=== PATIENT | female | born 1965 | race Caucasian/White ===

== ENCOUNTER 2018-01-23 19:32 | Observation (INO) ==
[2018-01-23] MEDS ORDERED: Ondansetron 4 MG/2 ML VIAL IVP ONE (20:11)
[2018-01-23] MEDS ORDERED: 0.9 % Sodium Chloride 1,000 ML IVC ONE (20:13)
[2018-01-23] MEDS ORDERED: Hydrocortisone Sodium Succ 100 MG/2 ML VIAL IVP ONE (20:13)
--- NOTE | 2018-01-23 20:17 | Emergency Department Note ---
Disposition Clinical Impression: Vomiting and diarrhea, Elevated LFTs, History of [place]'s disease Disposition: Admitted As Inpatient Condition: Good General Adult HPI - General Chief complaint: ED Chest Pain Stated complaint: uc sent here for poss. adrenal crisis Time Seen by Provider: 01/23/18 19:56 Source: patient Limitations: no limitations Nursing Notes Reviewed: Yes Vital Signs Reviewed: Yes - History of Present Illness HPI Narrative: This is a 52 year-old female with history of Brain's disease, hypopituitarism , HLD, and IBS who presents with gastroenteritis-like symptoms for the past 2 days. She reports 5-6 episodes of nonbloody, nonbilious emesis yesterday, none today. She also reports numerous episodes of watery diarrhea. She reports a fever to 102 yesterday and dull left-sided chest pain today. She denies any cough, shortness of breath, abdominal pain, urinary symptoms, leg pain or swelling. No sick contacts. Pt Subjective Complaint: Vomiting and Diarrhea Onset (ago): day(s) (2) Location: chest Radiation: extremity Pain Scale: 8 Quality: dull Consistency: constant Improves with: nothing Worsens with: nothing Associated symptoms: Reports: confusion, chest pain, fever/chills (yesterday), loss of appetite, malaise, nausea/vomiting, weakness (generalized). Denies: cough, headaches, shortness of breath, syncope - Related Data Home Medications Medication Instructions Recorded Confirmed Aspirin [Adult Low Dose Aspirin EC] 81 mg PO DAILY 11/18/15 01/23/18 Cyanocobalamin (Vitamin B-12) 1,000 mcg PO DAILY 11/18/15 01/23/18 [Vitamin B12] Dicyclomine 20 mg PO BID 11/18/15 01/23/18 Diltiazem HCl [Diltiazem ER] 120 mg PO BID 11/18/15 01/23/18 Hydrocortisone Sod Succ/Pf 100 mg IJ AD 11/18/15 01/23/18 [Solu-Cortef 100 mg Vial] Hydrocortisone [Cortef] 20 mg PO QAM 11/18/15 01/23/18 Nitroglycerin [Nitrostat] 0.4 mg SL Q5M PRN 02/22/16 01/23/18 Linaclotide [Linzess] 145 mcg PO DAILY PRN 07/06/16 01/23/18 Pantoprazole Sodium [Protonix] 40 mg PO DAILY 07/06/16 01/23/18 Estradiol [Estrace] 1 mg PO DAILY 05/23/17 01/23/18 Levothyroxine [Synthroid] 125 mcg PO 0605/23/17 01/23/18 Prazosin [Minipress] 1 mg PO HS 05/23/17 01/23/18 Progesterone,Micronized 200 mg PO QPM 05/23/17 01/23/18 [Progesterone] Quetiapine Fumarate [Seroquel] 250 mg PO HS 05/23/17 01/23/18 Somatropin [Genotropin] 0.4 mg SQ QPM 05/23/17 01/23/18 Ergocalciferol (VITAMIN D2) 50,000 unit PO QWEEK 01/23/18 01/23/18 [Vitamin D2] Hydrocortisone [Cortef] 10 mg PO QPM 01/23/18 01/23/18 Venlafaxine XR (24 HR) [Effexor XR] 75 mg PO DAILY 01/23/18 01/23/18 lamoTRIgine [Lamictal] 150 mg PO QAM 01/23/18 01/23/18 Previous Rx's Medication Instructions Recorded Benzonatate [Tessalon] 200 mg PO TID PRN #30 capsule 12/16/17 Allergies Allergy/AdvReac Type Severity Reaction Status Date / Time No Known Allergies Allergy Verified 01/23/18 18:48 All systems ED: reviewed and negative except as stated. Constitutional: Reports: fever, weakness (generalized) Cardiovascular: Reports: chest pain. Denies: palpitations, syncope Respiratory: Denies: cough, dyspnea Gastrointestinal: Reports: as per HPI, nausea, vomiting, diarrhea. Denies: abdominal pain, hematemesis, melena, hematochezia Genitourinary: Reports: as per HPI. 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 Absent: scleral icterus - ENT ENT exam: normal exam - Neck Neck exam: Present: normal inspection - Cardiovascular Cardiovascular exam: Present: regular rate, normal rhythm, normal heart sounds - Abdominal Exam Abdominal exam: Present: soft, Non-Tender, normal bowel sounds. Absent: distention, guarding, rebound, rigidity - Extremities Exam Extremities exam: Present: normal inspection. Absent: calf tenderness - Neurological Exam Neurological exam: Present: alert, oriented X3, CN II-XII intact. Absent: motor sensory deficit - Psychiatric Psychiatric exam: Present: normal affect, normal mood - Skin Skin exam: Present: warm, dry, intact Course Vital Signs Temperature 98.7 F 01/23/18 19:39 Pulse Rate 83 01/23/18 19:39 Respiratory Rate 18 01/23/18 19:39 Blood Pressure 133/85 01/23/18 19:39 O2 Sat by Pulse Oximetry 98 01/23/18 19:39 Temperature 99.0 F 01/23/18 23:50 Pulse Rate 86 01/23/18 23:50 Respiratory Rate 14 01/23/18 23:50 Blood Pressure 122/75 01/23/18 23:50 O2 Sat by Pulse Oximetry 97 01/23/18 23:50 Oxygen Delivery Oxygen Delivery Room Air Medical Decision Making - Lab Data Lab results reviewed: Yes I reviewed the patient's lab results. Result diagrams: 01/23/18 20:21 01/23/18 20:11 Lab Results 01/23/18 01/23/18 01/23/18 Range/Units 20:11 20:11 20:21 WBC 2.5 L (4.3-11.1) K/mcL RBC 4.56 (3.82-4.97) M/mcL Hgb 13.5 (11.5-15.4) g/dL Hct 40.1 (35.3-44.9) % MCV 87.9 (83.0-100.0) fL MCH 29.6 (28.0-33.3) pg MCHC 33.7 (31.6-35.5) g/dL RDW 12.8 (11.5-14.5) % Plt Count 174 (140-400) K/mcL MPV 10.0 (9.4-12.4) fL Immature Gran % 0.0 (0-4) % Seg Neutrophils % 54.8 % Lymphocytes % 24.4 % Monocytes % 20.4 % Eosinophils % 0.4 % Basophils % 0.0 % Neutrophils # 1.4 L (1.6-8.9) K/mcL Lymphocytes # 0.6 (0.6-4.6) K/mcL Monocytes # 0.5 (0.0-1.3) K/mcL Eosinophils # 0.0 (0.0-0.6) K/mcL Basophils # 0.0 (0.0-0.2) K/mcL Toxic Granulation Present A (Not Present) Platelet Estimate Normal (Normal) Large Platelets Present A (Not Present) PT 11.3 (9.4-12.1) Seconds INR 1.1 APTT 36.0 (26.0-36.0) Seconds Sodium 138 (136-145) mEq/L Potassium 3.6 (3.5-5.1) mEq/L Chloride 103 (98-107) mEq/L Carbon Dioxide 28 (23-29) mEq/L BUN 10 (6-20) mg/dL Creatinine 0.87 (0.60-1.20) mg/dL Est GFR ( Amer) > 60 (> 60) Est GFR (Non-Af Amer) > 60 (> 60) BUN/Creatinine Ratio 11 (6-26) Glucose 99 (70-105) mg/dL Calculated Osmolality 285 (280-300) Calcium 9.3 (8.6-10.3) mg/dL Total Bilirubin 0.6 (0.3-1.0) mg/dL Direct Bilirubin 0.2 (0.0-0.2) mg/dL Indirect Bilirubin 0.4 (0.0-1.2) mg/dL AST 99 H (13-39) Units/L ALT 119 H (7-52) Units/L Alkaline Phosphatase 174 H (34-104) Units/L Troponin I < 0.03 (< 0.04) ng/mL Serum Total Protein 6.7 (6.4-8.9) g/dL Albumin 4.1 (3.5-5.7) g/dL Globulin 2.6 (2.4-3.5) g/dL Albumin/Globulin Ratio 1.6 (1.1-2.2) Amylase 35 (29-103) Units/L Lipase 21 (11-82) Units/L TSH 0.011 L (0.340-5.600) mcIU/mL Free T4 0.96 (0.70-2.00) ng/dl Urine Color (Yellow) Urine Clarity (Clear) Urine pH (5.0-8.0) pH Units Ur Specific [place] (1.010-1.025) Urine Protein (Neg-Trace) mg/dL Urine Glucose (UA) (Normal) mg/dL Urine Ketones (Negative) mg/dL Urine Blood (Negative) Urine Nitrite (Negative) Urine Bilirubin (Negative) Urine Urobilinogen (Normal) mg/dL Ur Leukocyte Esterase (Negative) Urine Microscopic RBC (0-3) per hpf Urine Microscopic WBC (0-3) per hpf Ur Squamous Epith Cells (None-Few) per lpf Urine Bacteria (None-Few) per hpf Hyaline Casts (None-Few) per lpf Ur Culture Indicated? (NO) 01/23/18 Range/Units 20:49 WBC (4.3-11.1) K/mcL RBC (3.82-4.97) M/mcL Hgb (11.5-15.4) g/dL Hct (35.3-44.9) % MCV (83.0-100.0) fL MCH (28.0-33.3) pg MCHC (31.6-35.5) g/dL RDW (11.5-14.5) % Plt Count (140-400) K/mcL MPV (9.4-12.4) fL Immature Gran % (0-4) % Seg Neutrophils % % Lymphocytes % % Monocytes % % Eosinophils % % Basophils % % Neutrophils # (1.6-8.9) K/mcL Lymphocytes # (0.6-4.6) K/mcL Monocytes # (0.0-1.3) K/mcL Eosinophils # (0.0-0.6) K/mcL Basophils # (0.0-0.2) K/mcL Toxic Granulation (Not Present) Platelet Estimate (Normal) Large Platelets (Not Present) PT (9.4-12.1) Seconds INR APTT (26.0-36.0) Seconds Sodium (136-145) mEq/L Potassium (3.5-5.1) mEq/L Chloride (98-107) mEq/L Carbon Dioxide (23-29) mEq/L BUN (6-20) mg/dL Creatinine (0.60-1.20) mg/dL Est GFR ( Amer) (> 60) Est GFR (Non-Af Amer) (> 60) BUN/Creatinine Ratio (6-26) Glucose (70-105) mg/dL Calculated Osmolality (280-300) Calcium (8.6-10.3) mg/dL Total Bilirubin (0.3-1.0) mg/dL Direct Bilirubin (0.0-0.2) mg/dL Indirect Bilirubin (0.0-1.2) mg/dL AST (13-39) Units/L ALT (7-52) Units/L Alkaline Phosphatase (34-104) Units/L Troponin I (< 0.04) ng/mL Serum Total Protein (6.4-8.9) g/dL Albumin (3.5-5.7) g/dL Globulin (2.4-3.5) g/dL Albumin/Globulin Ratio (1.1-2.2) Amylase (29-103) Units/L Lipase (11-82) Units/L TSH (0.340-5.600) mcIU/mL Free T4 (0.70-2.00) ng/dl Urine Color Yellow (Yellow) Urine Clarity Cloudy A (Clear) Urine pH 6.0 (5.0-8.0) pH Units Ur Specific [place] 1.024 (1.010-1.025) Urine Protein Negative (Neg-Trace) mg/dL Urine Glucose (UA) Normal (Normal) mg/dL Urine Ketones Negative (Negative) mg/dL Urine Blood Moderate H (Negative) Urine Nitrite Negative (Negative) Urine Bilirubin Negative (Negative) Urine Urobilinogen Normal (Normal) mg/dL Ur Leukocyte Esterase Negative (Negative) Urine Microscopic RBC 5-15 H (0-3) per hpf Urine Microscopic WBC 3-5 H (0-3) per hpf Ur Squamous Epith Cells Many H (None-Few) per lpf Urine Bacteria None Seen (None-Few) per hpf Hyaline Casts None Seen (None-Few) per lpf Ur Culture Indicated? NO (NO) - Radiology Data Radiology results reviewed: Yes I reviewed the patient's radiology results. XR/XR chest 2V IMPRESSION: No acute process. - EKG Data EKG #1 EKG attestation: Yes I reviewed and interpreted this EKG. EKG shows normal: sinus rhythm, axis, intervals, QRS complexes, ST-T waves Interpretation: normal EKG
[2018-01-23 20:28] LABS: Eosinophils % 0.4 %; Hematocrit 40.1 % (35.3-44.9); Hemoglobin 13.5 g/dL (11.5-15.4); Lymphocytes # 0.6 K/mcL (0.6-4.6); Lymphocytes % 24.4 %; Mean Corpuscular HGB Conc 33.7 g/dL (31.6-35.5); Mean Corpuscular Hemoglobin 29.6 pg (28.0-33.3); Mean Corpuscular Volume 87.9 fL (83.0-100.0); Monocytes # 0.5 K/mcL (0.0-1.3); Monocytes % 20.4 %; Neutrophils # 1.4 K/mcL (1.6-8.9); Platelet Count 174 K/mcL (140-400); Red Blood Count 4.56 M/mcL (3.82-4.97); Red Cell Distribution Width 12.8 % (11.5-14.5); Segmented Neutrophils % 54.8 %
[2018-01-23 20:37] LABS: INR 1.1; Prothrombin Time 11.3 Seconds (9.4-12.1)
[2018-01-23 20:40] LABS: Alanine Aminotransferase 119 Units/L (7-52); Albumin 4.1 g/dL (3.5-5.7); Albumin/Globulin Ratio 1.6 (1.1-2.2); Alkaline Phosphatase 174 Units/L (34-104); Amylase 35 Units/L (29-103); Aspartate Amino Transferase 99 Units/L (13-39); BUN/Creatinine Ratio 11 (6-26); Bilirubin,Direct 0.2 mg/dL (0.0-0.2); Bilirubin,Indirect 0.4 mg/dL (0.0-1.2); Bilirubin,Total 0.6 mg/dL (0.3-1.0); Blood Urea Nitrogen 10 mg/dL (6-20); Calcium 9.3 mg/dL (8.6-10.3); Carbon Dioxide 28 mEq/L (23-29); Chloride 103 mEq/L (98-107); Globulin 2.6 g/dL (2.4-3.5); Glucose 99 mg/dL (70-105); Lipase 21 Units/L (11-82); Osmolality,Calculated 285 (280-300); Potassium 3.6 mEq/L (3.5-5.1); Sodium 138 mEq/L (136-145); Total Protein 6.7 g/dL (6.4-8.9); Troponin I < 0.03 ng/mL (< 0.04); eGFR For African Americans > 60 (> 60); eGFR For Non-African Americans > 60 (> 60)
[2018-01-23 20:43] LABS: Large Platelets Present (Not Present); Platelet Estimate Normal (Normal)
[2018-01-23 20:44] LABS: Toxic Granulation Present (Not Present)
[2018-01-23 20:54] LABS: Thyroid Stimulating Hormone 0.011 mcIU/mL (0.340-5.600)
[2018-01-23 21:00] LABS: Bilirubin,Urine Negative (Negative); Blood,Urine Moderate (Negative); Clarity,Urine Cloudy (Clear); Color,Urine Yellow (Yellow); Glucose,Urine (UA) Normal (Normal); Ketones,Urine Negative (Negative); Leukocyte Esterase,Urine Negative (Negative); Nitrite,Urine Negative (Negative); Protein,Urine Negative (Neg-Trace); Specific Gravity,Urine 1.024 (1.010-1.025); Urobilinogen,Urine Normal (Normal)
[2018-01-23 21:01] LABS: Bacteria,Urine None Seen per hpf (None-Few); Hyaline Casts,Urine None Seen per lpf (None-Few); Squamous Epithelial Cell,Urine Many per lpf (None-Few)
[2018-01-23] MEDS ORDERED: Naloxone 0.4 MG/ML INJ IVP PRN (22:41)
[2018-01-23] MEDS ORDERED: Nitroglycerin 0.4 MG TAB.SUBL SL PRN (22:45)
[2018-01-23] MEDS ORDERED: LINACLOTIDE 145 MCG PO PRN (22:45)
[2018-01-23] MEDS ORDERED: Benzonatate 100 MG CAPSULE PO PRN (22:45)
--- NOTE | 2018-01-23 23:08 | Internal Med History&Physical ---
Date of Encounter: 01/23/18 Time of Encounter: 22:00 Internal Medicine - H&P: HPI Chief complaint: Nausea, vomiting, and diarrhea Admitted From: Home Plans for Post Hospital Care: Home History of present illness: Ms. Adler is a 52 year old female present to ER for nausea, vomiting, and diarrhea. Past medical history is significant for Brain disease on chronic steroid use, PTSD, IBD. Patient said started from yesterday she has nausea and vomiting. Patient totally has 6-7 vomiting is yesterday. The vomiting are stomach content, no blood in it. Patient also has spike fever to 102 yesterday. Patient denies runny nose, sore throat, ill contact, or unclean food taking. From today, patient still nausea but no vomiting or fever, patient has diarrhea today for about 6 times, watery, greenish color. Patient also complaining left upper quadrant abdominal pain today, the pain is a sharp, constant, radiates to the back. Patient denies shortness of breath or chest pain. Patient has slightly confused and she worry about her adrenal function. Patient was treated with IV fluid in ER and admitted for further management. Past Med Surg Social Fam HX - Past Medical History Medical history: other Additional medical history: brain's disease Psychiatric history: depression, PTSD - Past Surgical History Surgical History: hysterectomy, orthopedic, other, other Additional surgical history: 8 back surgeries. three elbow surgeries. rt carpal tunnel. two rt shoulder. total right shoulder reverse. battery replacment for stim - Social History Smoking Status: Never smoker Smokeless Tobacco Status: No Alcohol use: none Drug use: none - Family History Mother Living Status: Hx Family Cardiac Disorders: Yes Hx Family Respiratory Disorders: No Hx Family Cancer: Yes (lung) Hx Family GI Disorders: No Hx Family Endocrine Disorder: No Hx Family Neuromuscular Disorders: No Hx Family Neurologic Disorders: No Hx Family HEENT Disorders: No Hx Family Autoimmune Disorders: No Internal Medicine - H&P: Meds Aspirin [Adult Low Dose Aspirin EC] 81 mg PO DAILY 11/18/15 [History] Cyanocobalamin (Vitamin B-12) [Vitamin B12] 1,000 mcg PO DAILY 11/18/15 [History ] Dicyclomine 20 mg PO BID 11/18/15 [History] Diltiazem HCl [Diltiazem ER] 120 mg PO BID 04/14/16 [History] Hydrocortisone Sod Succ/Pf [Solu-Cortef 100 mg Vial] 100 mg IJ AD 11/18/15 [ History] Hydrocortisone [Cortef] 20 mg PO QAM 11/18/15 [History] Nitroglycerin [Nitrostat] 0.4 mg SL Q5M PRN 02/22/16 [History] Linaclotide [Linzess] 145 mcg PO DAILY PRN 07/06/16 [History] Pantoprazole Sodium [Protonix] 40 mg PO DAILY 07/06/16 [History] Estradiol [Estrace] 1 mg PO DAILY 05/23/17 [History] Levothyroxine [Synthroid] 125 mcg PO 0630 05/23/17 [History] Prazosin [Minipress] 1 mg PO HS 05/23/17 [History] Progesterone,Micronized [Progesterone] 200 mg PO QPM 05/23/17 [History] Quetiapine Fumarate [Seroquel] 250 mg PO HS 05/23/17 [History] Somatropin [Genotropin] 0.4 mg SQ QPM 05/23/17 [History] Benzonatate [Tessalon] 200 mg PO TID PRN #30 capsule 12/16/17 [Rx] Ergocalciferol (VITAMIN D2) [Vitamin D2] 50,000 unit PO QWEEK 01/23/18 [History] Hydrocortisone [Cortef] 10 mg PO QPM 01/23/18 [History] Venlafaxine XR (24 HR) [Effexor XR] 75 mg PO DAILY 01/23/18 [History] lamoTRIgine [Lamictal] 150 mg PO QAM 01/23/18 [History] 3 Allergy/AdvReac Type Severity Reaction Status Date / Time No Known Allergies Allergy Verified 01/23/18 18:48 All Systems PM: A 10-system review of systems was performed and is negative for pertinent findings except as documented above in the HPI. - Constitutional Vitals: Temp Pulse Resp BP Pulse Ox 98.7 F 74 16 127/82 94 01/23/18 19:53 01/23/18 21:49 01/23/18 22:35 01/23/18 22:35 01/23/18 21:49 General appearance: Present: A&O X 3, no acute distress, answers questions appropriately - Head Head exam: Present: atraumatic, normocephalic - Eye Eye exam: Present: PERRL, conjuntiva pink, sclera anicteric Pupils: Present: PERRL - Neck Neck exam general surgery: Present: supple, trachea midline. Absent: lymphadenopathy - Respiratory Respiratory exam: Present: CTAB. Absent: accessory muscle use, rales, rhonchi, wheezes - Cardiovascular Cardiovascular exam: Present: RRR, +S1, +S2. Absent: diastolic murmur, gallop, rubs, systolic murmur - GI/Abdominal GI/Abdominal exam: Present: hyperactive bowel sounds, normal bowel sounds, soft , tenderness (Left upper quadrant tenderness without guarding or rebound), no peritoneal signs. Absent: distended - Extremities Exam Extremities exam: Present: warm, radial pulses palpable and symmetrical. Absent : calf tenderness, cyanotic, pedal edema - Neurological Exam Neurological exam: Present: CN II-XII intact, oriented X3, no focal deficits. Absent: pronater drift, facial droop, speech deficit - Skin Skin exam: Present: dry, intact Internal Med - H&P Results - Labs CBC & Chem 7: 01/23/18 20:21 01/23/18 20:11 - Assessment and plan (1) Hypothyroidism Current Visit: No Status: Chronic Assessment and plan: Continue home medications Synthroid. Qualifiers: Hypothyroidism type: unspecified Qualified Code(s): E03.9 - Hypothyroidism , unspecified (2) DVT prophylaxis Current Visit: No Status: Acute Assessment and plan: Heparin subcutaneously. (3) Seizure disorder Current Visit: No Status: Acute Assessment and plan: Continue home medications (4) Abdominal pain Current Visit: No Status: Acute Assessment and plan: Left upper quadrant pain. Etiology is undetermined. Abdominal exam is generally benign. Will check CT abdomen without contrast. We will repeat lipase in a.m. Qualifiers: Abdominal location: periumbilical Qualified Code(s): R10.33 - Periumbilical pain (5) Nausea and vomiting Current Visit: No Status: Acute Assessment and plan: Etiology is undetermined. Probably due to acute gastroenteritis. Place patient on clear liquid diet and IV fluid. Closely monitor electrolytes level and correct her dehydration. Qualifiers: Vomiting type: unspecified Vomiting Intractability: non-intractable Qualified Code(s): R11.2 - Nausea with vomiting, unspecified (6) Depression Current Visit: No Status: Chronic Assessment and plan: Continue home medications Qualifiers: Depression Type: unspecified Qualified Code(s): F32.9 - Major depressive disorder, single episode, unspecified (7) Adrenal insufficiency Current Visit: No Status: Chronic Assessment and plan: Patient has history of Ke disease on by mouth steroids at home. Will place patient on stress dose hydrocortisone IV for the acute stress. (8) Acute gastroenteritis Current Visit: No Status: Acute Assessment and plan: Patient has nausea vomiting and diarrhea. Etiology is undetermined. Will order CT abdominal. Place patient on clear liquid diet and IV fluid. Symptomatic treatment for nausea. Check GI stool panel. (9) Elevated LFTs Current Visit: Yes Status: Acute Assessment and plan: Mild elevated ALT and AST level. Patient denies history of hepatitis. Probably due to acute gastroenteritis and severe nausea vomiting. Will closely follow-up liver function and avoid hepatotoxic medications. - Time Spent With Patient Total time spent is greater than 50% in coordination of care (as documented) at patient's floor/unit and/or counseling patient: 40 minutes Greater than 35 minutes
[2018-01-23] MEDS ORDERED: Ondansetron 4 MG/2 ML VIAL IVP PRN (23:20)
[2018-01-24] MEDS: Hydrocortisone Sodium Succ 100 MG/2 ML VIAL IVP SCH ×2 (00:39→08:29)
[2018-01-24] MEDS: 0.9 % Sodium Chloride 1,000 ML IVC SCH ×2 (01:45→10:40)
[2018-01-24 02:06] LABS: Hematocrit 35.2 % (35.3-44.9); Immature Granulocytes % 0.4 % (0-4); Lymphocytes # 0.4 K/mcL (0.6-4.6); Lymphocytes % 15.8 %; Mean Corpuscular HGB Conc 33.8 g/dL (31.6-35.5); Mean Corpuscular Hemoglobin 29.7 pg (28.0-33.3); Mean Corpuscular Volume 87.8 fL (83.0-100.0); Monocytes # 0.3 K/mcL (0.0-1.3); Monocytes % 9.6 %; Neutrophils # 1.9 K/mcL (1.6-8.9); Platelet Count 147 K/mcL (140-400); Red Blood Count 4.01 M/mcL (3.82-4.97); Red Cell Distribution Width 12.8 % (11.5-14.5); Segmented Neutrophils % 74.2 %
[2018-01-24 02:07] LABS: Hemoglobin 11.9 g/dL (11.5-15.4)
[2018-01-24 02:27] LABS: Alanine Aminotransferase 90 Units/L (7-52); Albumin 3.6 g/dL (3.5-5.7); Albumin/Globulin Ratio 1.6 (1.1-2.2); Alkaline Phosphatase 145 Units/L (34-104); Aspartate Amino Transferase 62 Units/L (13-39); BUN/Creatinine Ratio 12 (6-26); Bilirubin,Total 0.4 mg/dL (0.3-1.0); Blood Urea Nitrogen 9 mg/dL (6-20); Calcium 8.5 mg/dL (8.6-10.3); Carbon Dioxide 25 mEq/L (23-29); Chloride 108 mEq/L (98-107); Chol/HDL Ratio 2.5 (0-4.9); Cholesterol 138 mg/dL (< 200); Globulin 2.3 g/dL (2.4-3.5); Glucose 121 mg/dL (70-105); HDL Cholesterol 56 mg/dL (40-59); LDL Cholesterol,Calculated 66 mg/dL (0-99); Magnesium 1.8 mg/dL (1.6-2.6); Osmolality,Calculated 288 (280-300); Phosphorous 2.9 mg/dL (2.7-4.5); Potassium 3.6 mEq/L (3.5-5.1); Sodium 139 mEq/L (136-145); Total Protein 5.9 g/dL (6.4-8.9); Triglycerides 82 mg/dL (< 150); eGFR For African Americans > 60 (> 60); eGFR For Non-African Americans > 60 (> 60)
[2018-01-24 03:14] LABS: Hepatitis B Surface Antigen Nonreactive (Nonreactive)
[2018-01-24] MEDS: *HR* Heparin 5,000 UNIT/ML VIAL SQ SCH ×2 (05:16→18:06)
[2018-01-24] MEDS: Ondansetron 4 MG/2 ML VIAL IVP PRN ×4 (05:18→20:36)
[2018-01-24] MEDS: Aspirin Enteric Coated 81 MG Tablet PO SCH (08:27)
[2018-01-24] MEDS: lamoTRIgine 100 MG TABLET PO SCH (08:28)
[2018-01-24] MEDS: Venlafaxine XR (24 HR) 75 MG CAP.ER.24H PO SCH (08:29)
[2018-01-24] MEDS: Cyanocobalamin (B-12) 1,000 MCG TABLET PO SCH (08:29)
[2018-01-24] MEDS ORDERED: Diltiazem SR (12hr) 60 MG CAPSULE PO SCH (09:00)
--- NOTE | 2018-01-24 10:09 | Internal Med Progress Note ---
Date of Encounter: 01/24/18 Time of Encounter: 10:07 - Assessment and plan (1) Acute gastroenteritis Current Visit: No Status: Inactive Assessment and plan: Presented with nausea vomiting and diarrhea, etiology unclear, likely acute gastroenteritis Continue antiemetics and IV fluid Increase diet as tolerated, clear liquid now Obtain GI panel Antiemetics Closely monitor electrolytes (2) Hypothyroidism Current Visit: No Status: Chronic Assessment and plan: Continue Synthroid Should vomiting return consider changing patient to IV Synthroid Qualifiers: Hypothyroidism type: unspecified Qualified Code(s): E03.9 - Hypothyroidism , unspecified (3) Abdominal pain Current Visit: No Status: Acute Assessment and plan: Left upper quadrant pain, Etiology is unclear Likely due to acute gastroenteritis Reporting that abdominal pain is still present but improving Abdominal exam is benign CT A/P negative for acute intra-abdominal process Elevated LFTs, see previous note for assessment and plan Pain management with hydrocodone when necessary Qualifiers: Abdominal location: periumbilical Qualified Code(s): R10.33 - Periumbilical pain (4) Nausea and vomiting Current Visit: No Status: Acute Assessment and plan: Nausea vomiting and diarrhea, etiology unclear, likely gastroenteritis Has not been on any antibiotics in the last 90 days She is however reporting multiple watery stools daily Has not had an episode of emesis since yesterday evening, no diarrhea since 10 PM yesterday 01/23/18 Continue antiemetics Clear liquid diet, increase as tolerated Continue IV fluids Closely monitor electrolytes and replete as necessary Qualifiers: Vomiting type: unspecified Vomiting Intractability: non-intractable Qualified Code(s): R11.2 - Nausea with vomiting, unspecified (5) Seizure disorder Current Visit: No Status: Acute Assessment and plan: Continue antiepileptic medications (6) Depression Current Visit: No Status: Chronic Assessment and plan: Continue antidepressants Qualifiers: Depression Type: unspecified Qualified Code(s): F32.9 - Major depressive disorder, single episode, unspecified (7) Adrenal insufficiency Current Visit: No Status: Chronic Assessment and plan: History of Brain's, taking oral steroids Was initially placed on stress dose steroids for acute distress Condition improving, resume oral steroids and stop IV hydrocortisone at this time Monitor closely Obtain ACTH and a.m. cortisol (8) Elevated LFTs Current Visit: Yes Status: Acute Assessment and plan: Mildly elevated LFTs, etiology unclear Denies history of hepatitis Does admit to chronic alcohol abuse but has not had alcohol in approximately 25 years Denies recreational drug use or herbal therapies Possibly caused by acute enteritis with severe nausea and vomiting Additionally, patient has autoimmune disorder, [place]'s disease; consider autoimmune hepatitis Elevated LFTs can also be seen in adrenal insufficiency, serum a.m. cortisol, plasma ACTH Serum TSH and free T4 obtained and unremarkable Hepatitis B surface antigen negative Check hepatitis C antigen now Closely monitor liver function and avoid hepatotoxic medications (9) Leukopenia Current Visit: Yes Status: Acute Assessment and plan: Leukopenia, etiology unclear WBC 2.6 Consider infectious process or chronic oral steroid use Leukopenia isolated Consult to oncology, appreciate recommendations Peripheral blood smear now Qualifiers: Leukopenia type: unspecified Qualified Code(s): D72.819 - Decreased white blood cell count, unspecified (10) DVT prophylaxis Current Visit: No Status: Acute Assessment and plan: SQ heparin - Time Spent With Patient Total time spent is greater than 50% in coordination of care (as documented) at patient's floor/unit and/or counseling patient: 25 - 35 minutes - Subjective Interval history: Patient seen and examined at bedside today. No acute changes overnight. Continued to report nausea but denies diarrhea or vomiting. Denies any abdominal discomfort. Patient also noting that she is having profound weakness , fatigue and night sweats. - Constitutional Vitals: Temp Pulse Resp BP Pulse Ox 98.4 F 69 16 125/80 95 01/24/18 04:53 01/24/18 04:53 01/24/18 04:53 01/24/18 04:53 01/24/18 04:53 General appearance: Present: A&O X 3, no acute distress, answers questions appropriately - Head Head exam: Present: atraumatic, normocephalic - Eye Eye exam: Present: EOMI, PERRL, conjuntiva pink, sclera anicteric Pupils: Present: PERRL - Neck Neck exam general surgery: Present: supple, trachea midline. Absent: lymphadenopathy - Respiratory Respiratory exam: Present: CTAB. Absent: accessory muscle use, rales, rhonchi, wheezes - Cardiovascular Cardiovascular exam: Present: RRR, +S1, +S2. Absent: diastolic murmur, gallop, rubs, systolic murmur - GI/Abdominal GI/Abdominal exam: Present: normal bowel sounds, soft, no peritoneal signs. Absent: distended, tenderness - Extremities Exam Extremities exam: Present: warm, radial pulses palpable and symmetrical. Absent : calf tenderness, cyanotic, pedal edema - Neurological Exam Neurological exam: Present: CN II-XII intact, oriented X3, no focal deficits. Absent: pronater drift, facial droop, speech deficit - Skin Skin exam: Present: dry, intact. Absent: petechiae Additional comments: Scattered Ecchymosis B/L upper extremities and B/L lower extremities Internal Medicine: Result - Labs CBC & Chem 7: 01/24/18 01:55 01/24/18 01:55 Labs: Short CBC 01/24/18 Range/Units 01:55 WBC 2.6 L (4.3-11.1) K/mcL Hgb 11.9 D (11.5-15.4) g/dL Hct 35.2 L (35.3-44.9) % Plt Count 147 (140-400) K/mcL Neutrophils # 1.9 (1.6-8.9) K/mcL BMP 01/24/18 01:55 Sodium 139 Potassium 3.6 Chloride 108 H Carbon Dioxide 25 BUN 9 Creatinine 0.77 Glucose 121 H Calcium 8.5 L Cardiac Enzymes 01/24/18 01/24/18 Range/Units 01:55 07:54 Troponin I < 0.03 < 0.03 (< 0.04) ng/mL Liver Function 01/24/18 Range/Units 01:55 Total Bilirubin 0.4 (0.3-1.0) mg/dL AST 62 H (13-39) Units/L ALT 90 H (7-52) Units/L Alkaline Phosphatase 145 H (34-104) Units/L Albumin 3.6 (3.5-5.7) g/dL - ABG Interpretation ABG results: PT/INR, D-dimer PT 11.3 Seconds (9.4-12.1) 01/23/18 20:11 - Impressions Impressions Abdomen/Pelvis CT 01/23/18 22:38 IMPRESSION: Limited exam without contrast. Dependent atelectasis is noted bilaterally No acute abnormality in the abdomen or the pelvis. D/ / Eddy Florez / Eddy Florez Interpreting Provider: Eddy Florez Consult Discharge Plan - Plan Referrals: Scarlett Talbert DO [Primary Care Provider] -
[2018-01-24] MEDS: *HR* HYDROcodone/Acet 5/325 mg TABLET PO PRN (10:32)
--- NOTE | 2018-01-24 17:58 | Electrocardiograph Report ---
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
[2018-01-24] MEDS ORDERED: Hydrocortisone 10 MG TABLET PO SCH (18:00)
[2018-01-24] MEDS: (Progesterone,Micronized [Progesterone] 200 MG) PO SCH (18:07)
[2018-01-24] MEDS: SOMATROPIN SQ SCH (18:07)
[2018-01-25 03:04] LABS: Hepatitis A Antibody IgM Nonreactive (Nonreactive); Hepatitis B Core IgM Nonreactive (Nonreactive); Hepatitis C Virus Antibody Nonreactive (Nonreactive)
[2018-01-25] MEDS: *HR* Heparin 5,000 UNIT/ML VIAL SQ SCH ×2 (06:09→18:37)
[2018-01-25 06:25] LABS: Albumin 3.3 g/dL (3.5-5.7); Albumin/Globulin Ratio 1.7 (1.1-2.2); Bilirubin,Direct 0.2 mg/dL (0.0-0.2); Bilirubin,Indirect 0.1 mg/dL (0.0-1.2); Bilirubin,Total 0.3 mg/dL (0.3-1.0); Total Protein 5.3 g/dL (6.4-8.9)
[2018-01-25] MEDS ORDERED: Hydrocortisone 10 MG TABLET PO SCH (09:00)
[2018-01-25] MEDS: Cyanocobalamin (B-12) 1,000 MCG TABLET PO SCH (10:03)
[2018-01-25] MEDS: lamoTRIgine 100 MG TABLET PO SCH (10:03)
[2018-01-25] MEDS: Aspirin Enteric Coated 81 MG Tablet PO SCH (10:04)
[2018-01-25] MEDS: Venlafaxine XR (24 HR) 75 MG CAP.ER.24H PO SCH (10:04)
[2018-01-25] MEDS: (Vilazodone Hcl [Viibryd] 40 MG) PO SCH (10:10)
[2018-01-25] MEDS ORDERED: Hydrocortisone 10 MG TABLET PO ONE (10:15)
[2018-01-25] MEDS ORDERED: Hydrocortisone Sodium Succ 100 MG/2 ML VIAL IVP ONE (13:04)
--- NOTE | 2018-01-25 13:26 | Internal Med Progress Note ---
Date of Encounter: 01/25/18 Time of Encounter: 13:14 - Assessment and plan (1) Acute gastroenteritis Current Visit: Yes Status: Acute Assessment and plan: howard viral, will advance ,diet (2) Vomiting and diarrhea Current Visit: Yes Status: Acute Assessment and plan: improved, will advance diet (3) Hypothyroidism Current Visit: Yes Status: Chronic Assessment and plan: continue home meds Qualifiers: Hypothyroidism type: unspecified Qualified Code(s): E03.9 - Hypothyroidism , unspecified (4) Seizure disorder Current Visit: Yes Status: Chronic Assessment and plan: conitnue home meds (5) Nausea and vomiting Current Visit: No Status: Acute Qualifiers: Vomiting type: unspecified Vomiting Intractability: non-intractable Qualified Code(s): R11.2 - Nausea with vomiting, unspecified (6) Depression Current Visit: Yes Status: Chronic Assessment and plan: conitnue home meds Qualifiers: Depression Type: unspecified Qualified Code(s): F32.9 - Major depressive disorder, single episode, unspecified (7) Adrenal insufficiency Current Visit: Yes Status: Chronic Assessment and plan: patient still has symptoms of fatigue, will give dose of IV, then double the home dose. she follows up with Dr So, will send d/c summary to her (8) Hypopituitarism Current Visit: Yes Status: Chronic Assessment and plan: continue hormorne replacement (9) Elevated LFTs Current Visit: Yes Status: Acute Assessment and plan: trending down, hep study is negative. (10) Leukopenia Current Visit: Yes Status: Acute Assessment and plan: howard from viral infection, oncology is consulted, pending report she c/o easy briuse, notmal PLT, normal INR Qualifiers: Leukopenia type: unspecified Qualified Code(s): D72.819 - Decreased white blood cell count, unspecified - Time Spent With Patient Total time spent is greater than 50% in coordination of care (as documented) at patient's floor/unit and/or counseling patient: Greater than 35 minutes - Subjective Interval history: Ms. Adler is a 52 year old female present to ER for nausea, vomiting, and diarrhea. Past medical history is significant for [place] disease on chronic steroid use, PTSD, IBD. Patient was admitted on 01/23 for nausea and vomiting. Patient totally has 6-7 vomiting is yesterday. The vomiting are stom spike fever to 102 yesterday. Patient denies runny nose, sore throat, ill contact, or unclean food taking. she is afebrile, feels better, still feels tired. tolerated diet. she has leukopenia and some bruise. will double the dose of her home steroids dose pending Hematology consult likley discharge tomorrow - Constitutional Vitals: Temp Pulse Resp BP Pulse Ox 98.3 F 63 16 109/67 95 01/25/18 10:48 01/25/18 10:48 01/25/18 10:48 01/25/18 10:48 01/25/18 10:48 General appearance: Present: A&O X 3, no acute distress, answers questions appropriately Exam: CONSTITUTIONAL: patient appears as an age appropriate female in no acute distress. EYES Clear sclerae, bilateral pupils are equal, reactive to light. EMOI. RESPIRATORY: No accessory muscle use, bilateral clear to auscultation, no wheezing, no crackles/rales. CARDIOVASCULAR: Regular heart rate, normal S1 and S2, no murmurs GASTROINTESTINAL: bowel sounds present, soft, no tenderness. MUSCULOSKELETAL: Joints in normal range of motion, no clubbing, no edema, no cyanosis. Bilateral peripheral pulses 2+. NEUROLOGIC: CN II to XII are grossly intact, no focal neurological deficit. Internal Medicine: Result - Labs CBC & Chem 7: 01/24/18 01:55 01/24/18 01:55 Labs: Liver Function 01/25/18 Range/Units 05:14 Total Bilirubin 0.3 (0.3-1.0) mg/dL Direct Bilirubin 0.2 (0.0-0.2) mg/dL AST 19 (13-39) Units/L ALT 51 (7-52) Units/L Alkaline Phosphatase 111 H (34-104) Units/L Albumin 3.3 L (3.5-5.7) g/dL - ABG Interpretation ABG results: PT/INR, D-dimer PT 11.3 Seconds (9.4-12.1) 01/23/18 20:11 Consult Discharge Plan - Plan Referrals: Dustin Foley [Partnered Physician] - 02/01/18 1:55 pm
[2018-01-25] MEDS ORDERED: 0.9 % Sodium Chloride 1,000 ML ONE (14:02)
[2018-01-25] MEDS: 0.9 % Sodium Chloride 1,000 ML IVC SCH (14:17)
[2018-01-25] MEDS: Hydrocortisone Sodium Succ 100 MG/2 ML VIAL IVP SCH ×2 (14:20→23:38)
[2018-01-25 15:00] LABS: Eosinophils % 0.3 %; Hematocrit 36.4 % (35.3-44.9); Hemoglobin 12.3 g/dL (11.5-15.4); Immature Granulocytes % 0.5 % (0-4); Lymphocytes # 0.9 K/mcL (0.6-4.6); Lymphocytes % 22.5 %; Mean Corpuscular HGB Conc 33.8 g/dL (31.6-35.5); Mean Corpuscular Hemoglobin 29.4 pg (28.0-33.3); Mean Corpuscular Volume 87.1 fL (83.0-100.0); Mean Platelet Volume 9.9 fL (9.4-12.4); Monocytes # 0.2 K/mcL (0.0-1.3); Monocytes % 6.1 %; Neutrophils # 2.7 K/mcL (1.6-8.9); Platelet Count 167 K/mcL (140-400); Red Blood Count 4.18 M/mcL (3.82-4.97); Red Cell Distribution Width 12.9 % (11.5-14.5); Segmented Neutrophils % 70.6 %
[2018-01-25 15:29] LABS: BUN/Creatinine Ratio 9 (6-26); Blood Urea Nitrogen 6 mg/dL (6-20); Calcium 8.7 mg/dL (8.6-10.3); Carbon Dioxide 28 mEq/L (23-29); Chloride 109 mEq/L (98-107); Glucose 128 mg/dL (70-105); Osmolality,Calculated 295 (280-300); Potassium 3.3 mEq/L (3.5-5.1); Sodium 143 mEq/L (136-145); eGFR For African Americans > 60 (> 60); eGFR For Non-African Americans > 60 (> 60)
[2018-01-25] MEDS ORDERED: Potassium Chloride 40 MEQ, Lidocaine 1% 2 ML in D5% in Water 500 ML IVPB ONE (15:36)
[2018-01-25] MEDS: SOMATROPIN SQ SCH (18:36)
[2018-01-25] MEDS: (Progesterone,Micronized [Progesterone] 200 MG) PO SCH (18:36)
[2018-01-25] MEDS: Hydrocortisone 10 MG TABLET PO SCH (18:36)
[2018-01-26] MEDS: 0.9 % Sodium Chloride 1,000 ML IVC SCH ×3 (03:57→22:20)
[2018-01-26 05:28] LABS: Hematocrit 34.8 % (35.3-44.9); Hemoglobin 11.8 g/dL (11.5-15.4); Immature Granulocytes % 0.3 % (0-4); Lymphocytes % 29.4 %; Mean Corpuscular HGB Conc 33.9 g/dL (31.6-35.5); Mean Corpuscular Hemoglobin 29.5 pg (28.0-33.3); Mean Platelet Volume 10.1 fL (9.4-12.4); Monocytes # 0.3 K/mcL (0.0-1.3); Monocytes % 7.8 %; Neutrophils # 2.2 K/mcL (1.6-8.9); Platelet Count 174 K/mcL (140-400); Red Cell Distribution Width 12.7 % (11.5-14.5); Segmented Neutrophils % 62.5 %
[2018-01-26 05:44] LABS: Albumin 3.4 g/dL (3.5-5.7); Albumin/Globulin Ratio 1.5 (1.1-2.2); BUN/Creatinine Ratio 8 (6-26); Bilirubin,Direct 0.2 mg/dL (0.0-0.2); Bilirubin,Indirect 0.1 mg/dL (0.0-1.2); Bilirubin,Total 0.3 mg/dL (0.3-1.0); Blood Urea Nitrogen 6 mg/dL (6-20); Calcium 8.9 mg/dL (8.6-10.3); Carbon Dioxide 27 mEq/L (23-29); Chloride 109 mEq/L (98-107); Globulin 2.3 g/dL (2.4-3.5); Glucose 114 mg/dL (70-105); Magnesium 1.7 mg/dL (1.6-2.6); Osmolality,Calculated 292 (280-300); Potassium 3.5 mEq/L (3.5-5.1); Sodium 142 mEq/L (136-145); Total Protein 5.7 g/dL (6.4-8.9); eGFR For African Americans > 60 (> 60); eGFR For Non-African Americans > 60 (> 60)
[2018-01-26 06:07] LABS: Reactive Lymphocytes Present (Not Present)
[2018-01-26 06:08] LABS: Platelet Estimate Normal (Normal)
[2018-01-26] MEDS: *HR* Heparin 5,000 UNIT/ML VIAL SQ SCH ×2 (06:15→17:56)
[2018-01-26] MEDS: Hydrocortisone Sodium Succ 100 MG/2 ML VIAL IVP SCH ×3 (08:07→23:44)
[2018-01-26] MEDS: Aspirin Enteric Coated 81 MG Tablet PO SCH (08:08)
[2018-01-26] MEDS: Cyanocobalamin (B-12) 1,000 MCG TABLET PO SCH (08:08)
[2018-01-26] MEDS: (Vilazodone Hcl [Viibryd] 40 MG) PO SCH (08:08)
[2018-01-26] MEDS: lamoTRIgine 100 MG TABLET PO SCH (08:08)
[2018-01-26] MEDS: Venlafaxine XR (24 HR) 75 MG CAP.ER.24H PO SCH (08:08)
[2018-01-26] MEDS: Hydrocortisone 10 MG TABLET PO SCH ×2 (08:13→17:56)
--- NOTE | 2018-01-26 11:36 | Internal Med Progress Note ---
Date of Encounter: 01/26/18 Time of Encounter: 11:30 - Assessment and plan (1) Acute gastroenteritis Current Visit: Yes Status: Acute Assessment and plan: likley viral gastroenteritis, slowly advance diet (2) Vomiting and diarrhea Current Visit: Yes Status: Acute Assessment and plan: diarrhea resolved, check KUB (3) Hypothyroidism Current Visit: Yes Status: Chronic Qualifiers: Hypothyroidism type: unspecified Qualified Code(s): E03.9 - Hypothyroidism , unspecified (4) Seizure disorder Current Visit: Yes Status: Chronic (5) Depression Current Visit: Yes Status: Chronic Qualifiers: Depression Type: unspecified Qualified Code(s): F32.9 - Major depressive disorder, single episode, unspecified (6) Adrenal insufficiency Current Visit: Yes Status: Chronic Assessment and plan: on IV steroids, wean hydrocortisone to 25 mg TID (7) Hypopituitarism Current Visit: Yes Status: Chronic (8) Elevated LFTs Current Visit: Yes Status: Acute Assessment and plan: LFT is normal, pending CMV and EV rial study (9) Leukopenia Current Visit: Yes Status: Acute Assessment and plan: WBC improved, discussed Francoise, she will look at smear, likley from viral infection. Qualifiers: Leukopenia type: unspecified Qualified Code(s): D72.819 - Decreased white blood cell count, unspecified - Time Spent With Patient Total time spent is greater than 50% in coordination of care (as documented) at patient's floor/unit and/or counseling patient: 25 - 35 minutes - Subjective Interval history: Ms. Adler is a 52 year old female present to ER for nausea, vomiting, and diarrhea. Past medical history is significant for [place] disease on chronic steroid use, PTSD, IBD. Patient was admitted on 01/23 for nausea and vomiting and fever. Patient denies runny nose, sore throat, ill contact, or unclean food taking. Patient has adrenal insufficiency, we have to give iV hydrocortisone to prevent her crisis. She is not able to tolerate diet. 1. nausea and vomiting, unable to toelrate diet 2. Elevated LFT, trending down, negative hep panel. will check CMV and EB V 3. leukopenia likley viral infection , WBC improved, she has positive reactive lymphocytes 4.adrenal insufficiency, on IV hydrocortisone to prevent crisis, wean IV steroids slowly advance diet, check KUB for possible constipation - Constitutional Vitals: Temp Pulse Resp BP Pulse Ox 98.4 F 66 16 113/68 94 01/26/18 10:56 01/26/18 10:56 01/26/18 10:56 01/26/18 10:56 01/26/18 10:56 General appearance: Present: A&O X 3, no acute distress, answers questions appropriately Exam: CONSTITUTIONAL: patient appears as an age appropriate female in no acute distress. EYES Clear sclerae, bilateral pupils are equal, reactive to light. EMOI. RESPIRATORY: No accessory muscle use, bilateral clear to auscultation, no wheezing, no crackles/rales. CARDIOVASCULAR: Regular heart rate, normal S1 and S2, no murmurs GASTROINTESTINAL: bowel sounds present, soft, no tenderness. MUSCULOSKELETAL: Joints in normal range of motion, no clubbing, no edema, no cyanosis. Bilateral peripheral pulses 2+. NEUROLOGIC: CN II to XII are grossly intact, no focal neurological deficit. Internal Medicine: Result - Labs CBC & Chem 7: 01/26/18 05:02 01/26/18 05:02 Labs: Short CBC 01/25/18 01/26/18 Range/Units 14:50 05:02 WBC 3.8 L 3.5 L (4.3-11.1) K/mcL Hgb 12.3 11.8 (11.5-15.4) g/dL Hct 36.4 34.8 L (35.3-44.9) % Plt Count 167 174 (140-400) K/mcL Neutrophils # 2.7 2.2 (1.6-8.9) K/mcL BMP 01/25/18 01/26/18 14:50 05:02 Sodium 143 142 Potassium 3.3 L 3.5 Chloride 109 H 109 H Carbon Dioxide 28 27 BUN 6 6 Creatinine 0.69 0.74 Glucose 128 H 114 H Calcium 8.7 8.9 Liver Function 01/26/18 Range/Units 05:02 Total Bilirubin 0.3 (0.3-1.0) mg/dL Direct Bilirubin 0.2 (0.0-0.2) mg/dL AST 12 L (13-39) Units/L ALT 39 (7-52) Units/L Alkaline Phosphatase 106 H (34-104) Units/L Albumin 3.4 L (3.5-5.7) g/dL - ABG Interpretation ABG results: PT/INR, D-dimer PT 11.3 Seconds (9.4-12.1) 01/23/18 20:11 Consult Discharge Plan - Plan Referrals: Dustin Foley [Partnered Physician] - 02/01/18 1:55 pm
[2018-01-26] MEDS: SOMATROPIN SQ SCH (17:56)
[2018-01-26] MEDS: Ondansetron 4 MG/2 ML VIAL IVP PRN (18:01)
[2018-01-26] MEDS: *HR* HYDROcodone/Acet 5/325 mg TABLET PO PRN (18:01)
[2018-01-26] MEDS: (Progesterone,Micronized [Progesterone] 200 MG) PO SCH (20:57)
[2018-01-27 01:45] LABS: Alpha 2 Globulin (PEP) 0.71 g/dL (0.48-1.05); Beta Globulin (PEP) 0.86 g/dL (0.48-1.10)
[2018-01-27 01:50] LABS: Basophils % 0.5 %; Hematocrit 33.6 % (35.3-44.9); Hemoglobin 11.4 g/dL (11.5-15.4); Lymphocytes # 1.1 K/mcL (0.6-4.6); Lymphocytes % 27.7 %; Mean Corpuscular HGB Conc 33.9 g/dL (31.6-35.5); Mean Corpuscular Hemoglobin 29.6 pg (28.0-33.3); Mean Corpuscular Volume 87.3 fL (83.0-100.0); Mean Platelet Volume 10.3 fL (9.4-12.4); Monocytes # 0.3 K/mcL (0.0-1.3); Monocytes % 8.3 %; Neutrophils # 2.6 K/mcL (1.6-8.9); Platelet Count 173 K/mcL (140-400); Red Blood Count 3.85 M/mcL (3.82-4.97); Red Cell Distribution Width 12.6 % (11.5-14.5); Segmented Neutrophils % 63.5 %
[2018-01-27 02:11] LABS: Alanine Aminotransferase 29 Units/L (7-52); Albumin 3.4 g/dL (3.5-5.7); Albumin/Globulin Ratio 1.6 (1.1-2.2); Alkaline Phosphatase 94 Units/L (34-104); Aspartate Amino Transferase 10 Units/L (13-39); BUN/Creatinine Ratio 9 (6-26); Bilirubin,Direct 0.1 mg/dL (0.0-0.2); Bilirubin,Indirect 0.2 mg/dL (0.0-1.2); Bilirubin,Total 0.3 mg/dL (0.3-1.0); Blood Urea Nitrogen 6 mg/dL (6-20); Calcium 8.9 mg/dL (8.6-10.3); Carbon Dioxide 26 mEq/L (23-29); Chloride 105 mEq/L (98-107); Globulin 2.1 g/dL (2.4-3.5); Glucose 118 mg/dL (70-105); Osmolality,Calculated 285 (280-300); Potassium 3.3 mEq/L (3.5-5.1); Sodium 138 mEq/L (136-145); Total Protein 5.5 g/dL (6.4-8.9); eGFR For African Americans > 60 (> 60); eGFR For Non-African Americans > 60 (> 60)
[2018-01-27 02:16] LABS: Platelet Estimate Normal (Normal)
[2018-01-27] MEDS: *HR* Heparin 5,000 UNIT/ML VIAL SQ SCH ×2 (06:10→18:08)
[2018-01-27] MEDS: Hydrocortisone Sodium Succ 100 MG/2 ML VIAL IVP SCH ×2 (07:59→18:06)
[2018-01-27] MEDS: Hydrocortisone 10 MG TABLET PO SCH ×2 (08:00→18:09)
[2018-01-27] MEDS: Venlafaxine XR (24 HR) 75 MG CAP.ER.24H PO SCH (08:01)
[2018-01-27] MEDS: (Vilazodone Hcl [Viibryd] 40 MG) PO SCH (08:01)
[2018-01-27] MEDS: Cyanocobalamin (B-12) 1,000 MCG TABLET PO SCH (08:01)
[2018-01-27] MEDS: Aspirin Enteric Coated 81 MG Tablet PO SCH (08:01)
[2018-01-27] MEDS: lamoTRIgine 100 MG TABLET PO SCH (08:01)
--- NOTE | 2018-01-27 11:57 | Internal Med Progress Note ---
Date of Encounter: 01/27/18 Time of Encounter: 11:51 - Assessment and plan (1) Acute gastroenteritis Current Visit: Yes Status: Acute Assessment and plan: likley viral gastroenteritis, advance to regular diet today she has no BM since admission, will add miralax, and reglan (2) Vomiting and diarrhea Current Visit: Yes Status: Acute Assessment and plan: resolved (3) Hypothyroidism Current Visit: Yes Status: Chronic Qualifiers: Hypothyroidism type: unspecified Qualified Code(s): E03.9 - Hypothyroidism , unspecified (4) Seizure disorder Current Visit: Yes Status: Chronic (5) Depression Current Visit: Yes Status: Chronic Qualifiers: Depression Type: unspecified Qualified Code(s): F32.9 - Major depressive disorder, single episode, unspecified (6) Adrenal insufficiency Current Visit: Yes Status: Chronic Assessment and plan: on IV steroids, wean hydrocortisone to 25 mg BID (7) Hypopituitarism Current Visit: Yes Status: Chronic Assessment and plan: resume home medications (8) Elevated LFTs Current Visit: Yes Status: Acute Assessment and plan: resolved (9) Leukopenia Current Visit: Yes Status: Acute Assessment and plan: resolved Qualifiers: Leukopenia type: unspecified Qualified Code(s): D72.819 - Decreased white blood cell count, unspecified - Time Spent With Patient Total time spent is greater than 50% in coordination of care (as documented) at patient's floor/unit and/or counseling patient: - Subjective Interval history: Ms. Adler is a 52 year old female present to ER for nausea, vomiting, and diarrhea. Past medical history is significant for [place] disease on chronic steroid use, PTSD, IBD. Patient was admitted on 01/23 for nausea and vomiting and fever. Patient denies runny nose, sore throat, ill contact, or unclean food taking. Patient has adrenal insufficiency, we have to give iV hydrocortisone to prevent her crisis. She is not able to tolerate diet. 1. nausea and vomiting, unable to tolerate diet, will add reglan, encourage patient to walk 2. Elevated LFT, trending down, negative hep panel. negative Monospot, pending EB, CMV 3. 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 5. hormone and SSI withdrawal, restarted Genotropin and Viibryd (patient brought from home last night) 6. constipation, add miralax 7. weakness, consult pT hopefully discharge tomorrow will advance to regular diet - Constitutional Vitals: Temp Pulse Resp BP Pulse Ox 98.3 F 57 16 113/70 95 01/27/18 07:38 01/27/18 07:38 01/27/18 07:38 01/27/18 07:38 01/27/18 07:38 General appearance: Present: A&O X 3, no acute distress, answers questions appropriately Exam: CONSTITUTIONAL: patient appears as an age appropriate female in no acute distress. EYES Clear sclerae, bilateral pupils are equal, reactive to light. EMOI. RESPIRATORY: No accessory muscle use, bilateral clear to auscultation, no wheezing, no crackles/rales. CARDIOVASCULAR: Regular heart rate, normal S1 and S2, no murmurs GASTROINTESTINAL: bowel sounds present, soft, no tenderness. MUSCULOSKELETAL: Joints in normal range of motion, no clubbing, no edema, no cyanosis. Bilateral peripheral pulses 2+. NEUROLOGIC: CN II to XII are grossly intact, no focal neurological deficit. Internal Medicine: Result - Labs CBC & Chem 7: 01/27/18 01:23 01/27/18 01:23 Labs: Short CBC 01/27/18 Range/Units 01:23 WBC 4.1 L (4.3-11.1) K/mcL Hgb 11.4 L (11.5-15.4) g/dL Hct 33.6 L (35.3-44.9) % Plt Count 173 (140-400) K/mcL Neutrophils # 2.6 (1.6-8.9) K/mcL BMP 01/27/18 01:23 Sodium 138 Potassium 3.3 L Chloride 105 Carbon Dioxide 26 BUN 6 Creatinine 0.65 Glucose 118 H Calcium 8.9 Liver Function 01/27/18 Range/Units 01:23 Total Bilirubin 0.3 (0.3-1.0) mg/dL Direct Bilirubin 0.1 (0.0-0.2) mg/dL AST 10 L (13-39) Units/L ALT 29 (7-52) Units/L Alkaline Phosphatase 94 (34-104) Units/L Albumin 3.4 L (3.5-5.7) g/dL - ABG Interpretation ABG results: PT/INR, D-dimer PT 11.3 Seconds (9.4-12.1) 01/23/18 20:11 - Impressions Impressions KUB X-Ray 01/26/18 11:25 IMPRESSION: Nonspecific, nonobstructive bowel gas pattern. D/ / Eduardo Khoury MD / Eduardo Khoury MD Interpreting Provider: Eduardo Khoury MD Consult Discharge Plan - Plan Referrals: Dustin Foley [Partnered Physician] - 02/01/18 1:55 pm
[2018-01-27] MEDS ORDERED: Potassium Chloride Elixir 20 MEQ/15 ML UDC PO ONE ×2 (12:04→15:15)
[2018-01-27] MEDS: Ondansetron 4 MG/2 ML VIAL IVP PRN (13:53)
[2018-01-27] MEDS: Metoclopramide 10 MG/2 ML VIAL IVP SCH ×2 (17:40→21:41)
[2018-01-27] MEDS: SOMATROPIN SQ SCH (18:09)
[2018-01-27] MEDS: 0.9 % Sodium Chloride 1,000 ML IVC SCH (19:35)
[2018-01-27] MEDS: (Progesterone,Micronized [Progesterone] 200 MG) PO SCH (21:41)
[2018-01-28 01:14] LABS: BUN/Creatinine Ratio 10 (6-26); Blood Urea Nitrogen 8 mg/dL (6-20); Calcium 8.9 mg/dL (8.6-10.3); Carbon Dioxide 28 mEq/L (23-29); Chloride 108 mEq/L (98-107); Glucose 124 mg/dL (70-105); Osmolality,Calculated 292 (280-300); Potassium 3.9 mEq/L (3.5-5.1); Sodium 141 mEq/L (136-145); eGFR For African Americans > 60 (> 60); eGFR For Non-African Americans > 60 (> 60)
[2018-01-28] MEDS: Hydrocortisone Sodium Succ 100 MG/2 ML VIAL IVP SCH (06:26)
[2018-01-28] MEDS: *HR* Heparin 5,000 UNIT/ML VIAL SQ SCH ×2 (06:26→17:29)
[2018-01-28] MEDS: Venlafaxine XR (24 HR) 75 MG CAP.ER.24H PO SCH (08:43)
[2018-01-28] MEDS: Aspirin Enteric Coated 81 MG Tablet PO SCH (08:44)
[2018-01-28] MEDS: Hydrocortisone 10 MG TABLET PO SCH ×2 (08:44→17:28)
[2018-01-28] MEDS: Metoclopramide 10 MG/2 ML VIAL IVP SCH ×3 (08:45→22:09)
[2018-01-28] MEDS: Cyanocobalamin (B-12) 1,000 MCG TABLET PO SCH (08:45)
[2018-01-28] MEDS: lamoTRIgine 100 MG TABLET PO SCH (08:45)
[2018-01-28] MEDS: (Vilazodone Hcl [Viibryd] 40 MG) PO SCH (08:49)
--- NOTE | 2018-01-28 09:47 | Internal Med Progress Note ---
<Catarino Collier - Last Filed: 01/28/18 15:44> Date of Encounter: 01/28/18 Time of Encounter: 09:37 - Assessment and plan (1) Acute gastroenteritis Current Visit: Yes Status: Acute Assessment and plan: Nausea vomiting and diarrhea secondary to viral gastroenteritis, resolving Patient tolerating regular diet Mildly elevated LFTs Hepatitis B surface antigen negative Hepatitis C antibody negative Closely monitor liver function and avoid hepatotoxic medications She has not had BM since admission, will continue miralax and reglan Continue antiemetics (2) Adrenal insufficiency Current Visit: Yes Status: Chronic Assessment and plan: History of [place]'s, taking oral steroids Was initially placed on stress dose steroids IV Resume oral steroids and stop IV hydrocortisone at this time Monitor closely (3) Leukopenia Current Visit: Yes Status: Acute Assessment and plan: Leukopenia, resolving Peripheral blood smear revealed occasional immature bands, no blasts. RBCs appear normochromic normocytic. Platelets adequate. Discussed with oncology, leukopenia is likely from viral infection. Easy bruising is not likely due to hematology disorders. Consult canceled, appreciate oncology recommendations Continue monitoring Qualifiers: Leukopenia type: unspecified Qualified Code(s): D72.819 - Decreased white blood cell count, unspecified (4) Depression Current Visit: Yes Status: Chronic Assessment and plan: Continue home antidepressants. Qualifiers: Depression Type: unspecified Qualified Code(s): F32.9 - Major depressive disorder, single episode, unspecified (5) Hypothyroidism Current Visit: Yes Status: Chronic Assessment and plan: Continue home Synthroid Qualifiers: Hypothyroidism type: unspecified Qualified Code(s): E03.9 - Hypothyroidism , unspecified (6) Seizure disorder Current Visit: Yes Status: Chronic Assessment and plan: Continue antiepileptic medications (7) DVT prophylaxis Current Visit: No Status: Acute Assessment and plan: SQ heparin (8) GERD (gastroesophageal reflux disease) Current Visit: Yes Status: Acute Assessment and plan: Left upper quadrant pain radiating to back, chronic GERD, negative Lipase Abdominal pain is improving Abdominal exam is benign Last EGD 05/25/[address] Green revealed Grade I varices, diffuse mild inflammation in the stomach, pathology report revealed chronic gastritis with foveolar hyperplasia, No Helicobacter bacteria 01/23/18 CT abd/plv without contrast negative for acute intra-abdominal process Repeat CT abd/plv with contrast pending Discontinue hydrocodone Increase home dose of Prilosec to 40mg PO daily and start Carafate Consider GI consult for persistent symptoms despite medical management Qualifiers: Esophagitis presence: esophagitis presence not specified Qualified Code(s) : K21.9 - Gastro-esophageal reflux disease without esophagitis - Time Spent With Patient Total time spent is greater than 50% in coordination of care (as documented) at patient's floor/unit and/or counseling patient: - Subjective Interval history: Patient seen and examined resting comfortably in bed. Patient reports nausea today and LUQ abd pain radiating to her back. She denies vomiting. Patient continues to c/o easy bruising. - Constitutional Vitals: Temp Pulse Resp BP Pulse Ox 98.2 F 52 14 117/70 96 01/28/18 07:44 01/28/18 07:44 01/28/18 07:44 01/28/18 07:44 01/28/18 07:44 General appearance: Present: cooperative, A&O X 3, pleasant, no acute distress, answers questions appropriately - Head Head exam: Present: atraumatic, normocephalic - Eye Eye exam: Present: PERRL, conjuntiva pink, sclera anicteric Pupils: Present: PERRL - ENT ENT exam: Present: mucous membranes dry, normal oropharynx - Neck Neck exam general surgery: Present: supple, trachea midline. Absent: lymphadenopathy - Respiratory Respiratory exam: Present: CTAB. Absent: accessory muscle use, rales, rhonchi, wheezes - Cardiovascular Cardiovascular exam: Present: RRR, +S1, +S2. Absent: diastolic murmur, gallop, rubs, systolic murmur - GI/Abdominal GI/Abdominal exam: Present: normal bowel sounds, soft, tenderness (LUQ), no peritoneal signs. Absent: distended, guarding - Extremities Exam Extremities exam: Present: warm, radial pulses palpable and symmetrical. Absent : calf tenderness, cyanotic, pedal edema - Back Exam Back exam: Present: vertebral tenderness (prior L-spine surgical site intact ). Absent: paraspinal tenderness - Neurological Exam Neurological exam: Present: CN II-XII intact, oriented X3, no focal deficits. Absent: pronater drift, facial droop, speech deficit - Psychiatric Psychiatric exam: Present: normal affect, normal mood - Skin Skin exam: Present: dry, intact, warm Internal Medicine: Result - Labs CBC & Chem 7: 01/27/18 01:23 01/28/18 00:25 Labs: BMP 01/28/18 00:25 Sodium 141 Potassium 3.9 Chloride 108 H Carbon Dioxide 28 BUN 8 Creatinine 0.78 Glucose 124 H Calcium 8.9 - ABG Interpretation ABG results: PT/INR, D-dimer PT 11.3 Seconds (9.4-12.1) 01/23/18 20:11 - Pulse Oximetry Interpretation Digit-Finger Pulse Oximetry Readin (On RA) Consult Discharge Plan - Plan Referrals: Dustin Foley [Partnered Physician] - 02/01/18 1:55 pm <Ashli Seaman - Last Filed: 01/28/18 18:27> Date of Encounter: 01/28/18 - Assessment and plan (1) Hypothyroidism Current Visit: Yes Status: Chronic Qualifiers: Hypothyroidism type: unspecified Qualified Code(s): E03.9 - Hypothyroidism , unspecified (2) DVT prophylaxis Current Visit: No Status: Acute (3) Seizure disorder Current Visit: Yes Status: Chronic (4) Depression Current Visit: Yes Status: Chronic Qualifiers: Depression Type: unspecified Qualified Code(s): F32.9 - Major depressive disorder, single episode, unspecified (5) Adrenal insufficiency Current Visit: Yes Status: Chronic (6) Acute gastroenteritis Current Visit: Yes Status: Acute (7) Leukopenia Current Visit: Yes Status: Acute Qualifiers: Leukopenia type: unspecified Qualified Code(s): D72.819 - Decreased white blood cell count, unspecified (8) GERD (gastroesophageal reflux disease) Current Visit: Yes Status: Acute Qualifiers: Esophagitis presence: esophagitis presence not specified Qualified Code(s) : K21.9 - Gastro-esophageal reflux disease without esophagitis - Time Spent With Patient Total time spent is greater than 50% in coordination of care (as documented) at patient's floor/unit and/or counseling patient: - Constitutional Vitals: Temp Pulse Resp BP Pulse Ox 97.8 F 54 15 113/66 97 01/28/18 17:05 01/28/18 17:05 01/28/18 17:05 01/28/18 17:05 01/28/18 17:05 Internal Medicine: Result - Labs CBC & Chem 7: 01/27/18 01:23 01/28/18 00:25 Labs: BMP 01/28/18 00:25 Sodium 141 Potassium 3.9 Chloride 108 H Carbon Dioxide 28 BUN 8 Creatinine 0.78 Glucose 124 H Calcium 8.9 - ABG Interpretation ABG results: PT/INR, D-dimer PT 11.3 Seconds (9.4-12.1) 01/23/18 20:11 - Impressions Impressions Abdomen/Pelvis CT 01/28/18 15:45 IMPRESSION: 1. Questionable mucosal thickening at the greater curvature of the stomach may represent underlying gastritis or peptic ulcer disease. Consider follow-up evaluation with endoscopy. 2. Bilateral adrenal adenomas, stable. D/ / Robin Hankins MD / Robin Hankins MD Interpreting Provider: Robin Hankins MD - Attending Attestation I examined this patient and my medical decision-making was reviewed with the Resident Physician. I agree with the documented findings, disposition and treatment plan as described except to the extent set forth below.
[2018-01-28 10:20] LABS: IFE Reflexed NOT DONE
[2018-01-28] MEDS ORDERED: Isovue-370 500 ML INFUS..BTL IV ONE (13:25)
[2018-01-28] MEDS: Ondansetron 4 MG/2 ML VIAL IVP PRN (13:58)
[2018-01-28] MEDS: Sucralfate 1 GM TABLET PO SCH ×2 (17:28→22:08)
[2018-01-28] MEDS: SOMATROPIN SQ SCH (18:12)
[2018-01-28] MEDS: (Progesterone,Micronized [Progesterone] 200 MG) PO SCH (22:09)
[2018-01-29] MEDS: *HR* Heparin 5,000 UNIT/ML VIAL SQ SCH ×2 (05:45→17:24)
[2018-01-29 06:46] LABS: Hematocrit 36.3 % (35.3-44.9); Hemoglobin 12.4 g/dL (11.5-15.4); Mean Corpuscular HGB Conc 34.2 g/dL (31.6-35.5); Mean Corpuscular Volume 87.7 fL (83.0-100.0); Mean Platelet Volume 10.2 fL (9.4-12.4); Platelet Count 213 K/mcL (140-400); Red Blood Count 4.14 M/mcL (3.82-4.97); Red Cell Distribution Width 12.9 % (11.5-14.5)
[2018-01-29 07:01] LABS: Alanine Aminotransferase 20 Units/L (7-52); Albumin 3.6 g/dL (3.5-5.7); Albumin/Globulin Ratio 1.6 (1.1-2.2); Alkaline Phosphatase 83 Units/L (34-104); Aspartate Amino Transferase 12 Units/L (13-39); BUN/Creatinine Ratio 13 (6-26); Bilirubin,Total 0.5 mg/dL (0.3-1.0); Blood Urea Nitrogen 10 mg/dL (6-20); Calcium 9.1 mg/dL (8.6-10.3); Carbon Dioxide 28 mEq/L (23-29); Chloride 106 mEq/L (98-107); Globulin 2.2 g/dL (2.4-3.5); Glucose 97 mg/dL (70-105); Osmolality,Calculated 291 (280-300); Potassium 3.4 mEq/L (3.5-5.1); Sodium 141 mEq/L (136-145); Total Protein 5.8 g/dL (6.4-8.9); eGFR For African Americans > 60 (> 60); eGFR For Non-African Americans > 60 (> 60)
--- NOTE | 2018-01-29 07:41 | Internal Med Progress Note ---
<Catarino Collier - Last Filed: 01/29/18 14:16> Date of Encounter: 01/29/18 Time of Encounter: 07:39 - Assessment and plan (1) Acute gastroenteritis Current Visit: Yes Status: Acute Assessment and plan: Nausea vomiting and diarrhea secondary to viral gastroenteritis, resolving Patient tolerating regular diet Mildly elevated LFTs Hepatitis B surface antigen negative Hepatitis C antibody negative Closely monitor liver function and avoid hepatotoxic medications She has not had BM since admission, will continue miralax and reglan Continue antiemetics (2) GERD (gastroesophageal reflux disease) Current Visit: Yes Status: Acute Assessment and plan: Left upper quadrant pain radiating to back, chronic GERD, negative Lipase Abdominal pain is improving Abdominal exam is benign Last EGD 05/25/[address] Green revealed Grade I varices, diffuse mild inflammation in the stomach, pathology report revealed chronic gastritis with foveolar hyperplasia, No Helicobacter bacteria 01/23/18 CT abd/plv without contrast negative for acute intra-abdominal process 01/28/[address] abd/plv with contrast reveals questionable mucosal thickening at the greater curvature of the stomach may represent underlying gastritis or peptic ulcer disease. Discontinue hydrocodone Increase home dose of Prilosec to 40mg PO daily and started Carafate NPO, awaiting GI evaluation for possible endoscopy. Qualifiers: Esophagitis presence: esophagitis presence not specified Qualified Code(s) : K21.9 - Gastro-esophageal reflux disease without esophagitis (3) Adrenal insufficiency Current Visit: Yes Status: Chronic Assessment and plan: History of [place]'s, taking oral steroids Was initially placed on stress dose steroids IV Resume oral steroids and stop IV hydrocortisone at this time CT abd/plv reveals bilateral adrenal adenomas, stable. Monitor closely (4) Leukopenia Current Visit: Yes Status: Acute Assessment and plan: Leukopenia, resolved Peripheral blood smear revealed occasional immature bands, no blasts. RBCs appear normochromic normocytic. Platelets adequate. Discussed with oncology, leukopenia is likely from viral infection. Easy bruising is not likely due to hematology disorders. Consult canceled, appreciate oncology recommendations Continue monitoring Qualifiers: Leukopenia type: unspecified Qualified Code(s): D72.819 - Decreased white blood cell count, unspecified (5) Depression Current Visit: Yes Status: Chronic Assessment and plan: Continue home antidepressants. Outpatient notes reviewed. Patient has been weaned off Lexapro Qualifiers: Depression Type: unspecified Qualified Code(s): F32.9 - Major depressive disorder, single episode, unspecified (6) Hypothyroidism Current Visit: Yes Status: Chronic Assessment and plan: Continue home Synthroid Qualifiers: Hypothyroidism type: unspecified Qualified Code(s): E03.9 - Hypothyroidism , unspecified (7) Seizure disorder Current Visit: Yes Status: Chronic Assessment and plan: Continue antiepileptic medications (8) DVT prophylaxis Current Visit: No Status: Acute Assessment and plan: SQ heparin (9) Hypokalemia Current Visit: Yes Status: Acute Assessment and plan: Supplement K. Mag level WNL Continue monitoring - Time Spent With Patient Total time spent is greater than 50% in coordination of care (as documented) at patient's floor/unit and/or counseling patient: - Subjective Interval history: Patient seen and examined resting comfortably in bed. Patient reports ongoing nausea and intermittent LUQ abd pain radiating to her back today. She denies vomiting. Repeat CT with contrast reveals possible gastritis. Patient is NPO awaiting GI eval for possible EGD. - Constitutional Vitals: Temp Pulse Resp BP Pulse Ox 98.6 F 61 16 102/55 93 01/29/18 06:07 01/29/18 06:07 01/29/18 06:07 01/29/18 06:07 01/29/18 06:07 General appearance: Present: cooperative, A&O X 3, pleasant, no acute distress, answers questions appropriately - Head Head exam: Present: atraumatic, normocephalic - Eye Eye exam: Present: PERRL, conjuntiva pink, sclera anicteric Pupils: Present: PERRL - ENT ENT exam: Present: mucous membranes dry, normal oropharynx - Neck Neck exam general surgery: Present: supple, trachea midline. Absent: lymphadenopathy - Respiratory Respiratory exam: Present: CTAB. Absent: accessory muscle use, rales, rhonchi, wheezes - Cardiovascular Cardiovascular exam: Present: RRR, +S1, +S2. Absent: diastolic murmur, gallop, rubs, systolic murmur - GI/Abdominal GI/Abdominal exam: Present: normal bowel sounds, soft, tenderness (LUQ), no peritoneal signs. Absent: distended, guarding - Extremities Exam Extremities exam: Present: warm, radial pulses palpable and symmetrical. Absent : calf tenderness, cyanotic, pedal edema - Back Exam Back exam: Present: CVA tenderness (L), paraspinal tenderness (previous surgical site noted, well healed), tenderness. Absent: normal inspection - Neurological Exam Neurological exam: Present: CN II-XII intact, oriented X3, no focal deficits. Absent: pronater drift, facial droop, speech deficit - Psychiatric Psychiatric exam: Present: normal affect, normal mood - Skin Skin exam: Present: dry, intact, warm Internal Medicine: Result - Labs CBC & Chem 7: 01/29/18 06:31 01/29/18 06:31 Labs: Short CBC 01/29/18 Range/Units 06:31 WBC 5.8 (4.3-11.1) K/mcL Hgb 12.4 (11.5-15.4) g/dL Hct 36.3 (35.3-44.9) % Plt Count 213 (140-400) K/mcL BMP 01/29/18 06:31 Sodium 141 Potassium 3.4 L Chloride 106 Carbon Dioxide 28 BUN 10 Creatinine 0.79 Glucose 97 Calcium 9.1 Liver Function 01/29/18 Range/Units 06:31 Total Bilirubin 0.5 (0.3-1.0) mg/dL AST 12 L (13-39) Units/L ALT 20 (7-52) Units/L Alkaline Phosphatase 83 (34-104) Units/L Albumin 3.6 (3.5-5.7) g/dL - ABG Interpretation ABG results: PT/INR, D-dimer PT 11.3 Seconds (9.4-12.1) 01/23/18 20:11 - Pulse Oximetry Interpretation Digit-Finger Pulse Oximetry Readin (On RA) - Impressions Impressions Abdomen/Pelvis CT 01/28/18 15:45 IMPRESSION: 1. Questionable mucosal thickening at the greater curvature of the stomach may represent underlying gastritis or peptic ulcer disease. Consider follow-up evaluation with endoscopy. 2. Bilateral adrenal adenomas, stable. D/ / Robin Hankins MD / Robin Hankins MD Interpreting Provider: Robin Hankins MD Consult Discharge Plan - Plan Referrals: Dustin Foley [Partnered Physician] - 02/01/18 1:55 pm <Eddy Freedman - Last Filed: 01/29/18 15:09> Date of Encounter: 01/29/18 - Assessment and plan (1) Hypothyroidism Current Visit: Yes Status: Chronic Qualifiers: Hypothyroidism type: unspecified Qualified Code(s): E03.9 - Hypothyroidism , unspecified (2) DVT prophylaxis Current Visit: No Status: Acute (3) Seizure disorder Current Visit: Yes Status: Chronic (4) Depression Current Visit: Yes Status: Chronic Qualifiers: Depression Type: unspecified Qualified Code(s): F32.9 - Major depressive disorder, single episode, unspecified (5) Adrenal insufficiency Current Visit: Yes Status: Chronic (6) Acute gastroenteritis Current Visit: Yes Status: Acute (7) Leukopenia Current Visit: Yes Status: Acute Qualifiers: Leukopenia type: unspecified Qualified Code(s): D72.819 - Decreased white blood cell count, unspecified (8) GERD (gastroesophageal reflux disease) Current Visit: Yes Status: Acute Qualifiers: Esophagitis presence: esophagitis presence not specified Qualified Code(s) : K21.9 - Gastro-esophageal reflux disease without esophagitis (9) Hypokalemia Current Visit: Yes Status: Acute - Time Spent With Patient Total time spent is greater than 50% in coordination of care (as documented) at patient's floor/unit and/or counseling patient: - Constitutional Vitals: Temp Pulse Resp BP Pulse Ox 98.1 F 59 16 109/70 96 01/29/18 14:15 01/29/18 14:15 01/29/18 14:15 01/29/18 14:15 01/29/18 14:15 Internal Medicine: Result - Labs CBC & Chem 7: 01/29/18 06:31 01/29/18 06:31 Labs: Short CBC 01/29/18 Range/Units 06:31 WBC 5.8 (4.3-11.1) K/mcL Hgb 12.4 (11.5-15.4) g/dL Hct 36.3 (35.3-44.9) % Plt Count 213 (140-400) K/mcL BMP 01/29/18 06:31 Sodium 141 Potassium 3.4 L Chloride 106 Carbon Dioxide 28 BUN 10 Creatinine 0.79 Glucose 97 Calcium 9.1 Liver Function 01/29/18 Range/Units 06:31 Total Bilirubin 0.5 (0.3-1.0) mg/dL AST 12 L (13-39) Units/L ALT 20 (7-52) Units/L Alkaline Phosphatase 83 (34-104) Units/L Albumin 3.6 (3.5-5.7) g/dL - ABG Interpretation ABG results: PT/INR, D-dimer PT 11.3 Seconds (9.4-12.1) 01/23/18 20:11 - Impressions Impressions Abdomen/Pelvis CT 01/28/18 15:45 IMPRESSION: 1. Questionable mucosal thickening at the greater curvature of the stomach may represent underlying gastritis or peptic ulcer disease. Consider follow-up evaluation with endoscopy. 2. Bilateral adrenal adenomas, stable. D/ / Robin Hankins MD / Robin Hankins MD Interpreting Provider: Robin Hankins MD - Attending Attestation I performed an independent interview and examine this patient. I agree with the findings, assessment, and plan of Dr. Collier, internal medicine resident. Patient is to undergo EGD today to eval for possible peptic ulcer disease. She continues to have discomfort, abdominal pain, and mild nausea. He is currently nothing by mouth in preparation for her EGD. She did receive stress dose steroids as she was nothing by mouth. Patient otherwise is hemodynamically stable. Awaiting results of endoscopy.
[2018-01-29] MEDS ORDERED: Potassium Chloride 40 MEQ, Lidocaine 1% 2 ML in D5% in Water 500 ML IVPB ONE (08:16)
[2018-01-29] MEDS: Aspirin Enteric Coated 81 MG Tablet PO SCH (08:57)
[2018-01-29] MEDS: Hydrocortisone 10 MG TABLET PO SCH ×2 (08:58→17:39)
[2018-01-29] MEDS: Cyanocobalamin (B-12) 1,000 MCG TABLET PO SCH (08:59)
[2018-01-29] MEDS: Metoclopramide 10 MG/2 ML VIAL IVP SCH (08:59)
[2018-01-29] MEDS: Sucralfate 1 GM TABLET PO SCH ×4 (08:59→21:43)
[2018-01-29] MEDS: lamoTRIgine 100 MG TABLET PO SCH (08:59)
[2018-01-29] MEDS: (Vilazodone Hcl [Viibryd] 40 MG) PO SCH (08:59)
--- NOTE | 2018-01-29 12:56 | Gastroenterology Consult Note ---
Date of Encounter: 01/29/18 Time of Encounter: 10:20 - Assessment and plan (1) Abdominal pain Current Visit: No Status: Acute Assessment and plan: CT abdomen shows possible PUD, will proceed with EGD today. Continue PPi and carafate. Qualifiers: Abdominal location: periumbilical Qualified Code(s): R10.33 - Periumbilical pain - Time Spent With Patient Total time spent is greater than 50% in coordination of care (as documented) at patient's floor/unit and/or counseling patient: GI History of Present Illness - Data of Consult Patient: known to practice within the last 3 years Consult date: 01/29/18 Requesting Physician: Amy Garcia MD - Consult Narrative Reason for consult: left upper quadrant pain History of present illness: Ms. Adler is a 52 year old female present to ER for nausea, vomiting, and diarrhea. 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 Patient was admitted on 01/23/18 and treated for acute gastro enteritis. She had continued abdominal pain which radiates to the left side. CT abdomen showed questionable mucosal thickening at the greater curvature of the stomach may represent underlying gastritis or peptic ulcer disease. she had watery diarrhea before being admitted, no BM sine admission. she is on chronic oral steroids for Samson's disease. She had elevated LFTs on admission, now normal. She states nausea is improved but she has continued pain and tenderness to left upper and lower quadrants. She had varies last EGD, she denies hepatitis, or liver disease. she has a history of alcohol abuse but states she has been sober for the past 23 years. EGD: 05/2217 grade I varices, Colonosopy: 04/21 normal anticoag: asa 81 mg daily, heparin 0545 this am Past Med Surg Social Fam HX - Past Medical History Medical history: other Additional medical history: IBS, hypopituitarism, samson's disease Psychiatric history: depression, PTSD - Past Surgical History Surgical History: hysterectomy, orthopedic, other, other Additional surgical history: 8 back surgeries. three elbow surgeries. rt carpal tunnel. two rt shoulder. total right shoulder reverse. battery replacment for stim - Social History Smoking Status: Never smoker Smokeless Tobacco Status: No Alcohol use: none Drug use: none - Family History Mother Living Status: Hx Family Cardiac Disorders: Yes Hx Family Respiratory Disorders: No Hx Family Cancer: Yes (lung) Hx Family GI Disorders: No Hx Family Endocrine Disorder: No Hx Family Neuromuscular Disorders: No Hx Family Neurologic Disorders: No Hx Family HEENT Disorders: No Hx Family Autoimmune Disorders: No Review of Systems: GI: as per [place] GENERAL: denies fever or chills EYES: denies yellow discoloration ENT: denies pain with swallowing or difficulty swallowing CARDIO: denies chest pain, palpitations RESP: No Shortness of breath with exertion : denies change in color of urine NEURO: weakness HEME: Denies any bruising MS: denies joint pain, joint swelling or back pain. DERM: denies rash or itching PSYCH: Denies history of anxiety or depression - Constitutional Vitals: Temp Pulse Resp BP Pulse Ox 98.1 F 58 14 101/64 94 01/29/18 10:31 01/29/18 10:31 01/29/18 10:31 01/29/18 10:31 01/29/18 10:31 Exam: CONSTITUTIONAL:~alert, no acute distress.~HEAD:~normocephalic.~EYES:~no jaundice.~NECK:~no obvious swelling.~HEART:~regular rate and rhythm, no murmurs. ~LUNGS:~bilateral good air entry.~ABDOMEN:~non distended, soft, tender left upper and lower quadrants, no masses palpable, no organomegaly.~RECTAL EXAM:~ Deferred.~EXTREMITIES:~no clubbing, cyanosis or edema.~SKIN:~no stigmata of chronic liver disease.~NEUROLOGIC:~no obvious focal defect.~~~~ Results - Labs CBC & Chem 7: 01/29/18 06:31 01/29/18 06:31 Labs: Last Result Calcium 9.1 mg/dL (8.6-10.3) 01/29/18 06:31 Troponin I < 0.03 ng/mL (< 0.04) 01/24/18 07:54 Triglycerides 82 mg/dL (< 150) 01/24/18 01:55 Entire Visit Hgb 12.4 g/dL (11.5-15.4) 01/29/18 06:31 Hct 36.3 % (35.3-44.9) 01/29/18 06:31 PT 11.3 Seconds (9.4-12.1) 06/20/18 20:11 Total Bilirubin 0.5 mg/dL (0.3-1.0) 01/29/18 06:31 AST 12 Units/L (13-39) L 01/29/18 06:31 ALT 20 Units/L (7-52) 01/29/18 06:31 Amylase 35 Units/L (29-103) 01/23/18 20:11 Lipase 26 Units/L (11-82) 01/24/18 01:55 - ABG ABG results: PT/INR, D-dimer PT 11.3 Seconds (9.4-12.1) 01/23/18 20:11 - Impressions Impressions Abdomen/Pelvis CT 01/28/18 15:45 IMPRESSION: 1. Questionable mucosal thickening at the greater curvature of the stomach may represent underlying gastritis or peptic ulcer disease. Consider follow-up evaluation with endoscopy. 2. Bilateral adrenal adenomas, stable. D/ / Robin Hankins MD / Robin Hankins MD Interpreting Provider: Robin Hankins MD Consult Discharge Plan - Plan Referrals: Dustin Foley [Partnered Physician] - 02/01/18 1:55 pm
[2018-01-29] MEDS: *HR* Promethazine 25 MG/ML VIAL IVP PRN (14:01)
[2018-01-29] MEDS: SOMATROPIN SQ SCH (17:39)
[2018-01-29] MEDS: (Progesterone,Micronized [Progesterone] 200 MG) PO SCH (21:43)
[2018-01-30] MEDS: *HR* Promethazine 25 MG/ML VIAL IVP PRN ×2 (03:16→18:18)
[2018-01-30] MEDS: *HR* Heparin 5,000 UNIT/ML VIAL SQ SCH ×2 (05:14→18:09)
[2018-01-30 06:47] LABS: BUN/Creatinine Ratio 11 (6-26); Blood Urea Nitrogen 10 mg/dL (6-20); Calcium 9.3 mg/dL (8.6-10.3); Carbon Dioxide 27 mEq/L (23-29); Chloride 105 mEq/L (98-107); Glucose 91 mg/dL (70-105); Magnesium 2.1 mg/dL (1.6-2.6); Osmolality,Calculated 291 (280-300); Potassium 3.5 mEq/L (3.5-5.1); Sodium 141 mEq/L (136-145); eGFR For African Americans > 60 (> 60); eGFR For Non-African Americans > 60 (> 60)
--- NOTE | 2018-01-30 08:15 | Internal Med Progress Note ---
Date of Encounter: 01/30/18 Time of Encounter: 08:13 - Assessment and plan (1) Acute gastroenteritis Current Visit: Yes Status: Acute Assessment and plan: Nausea vomiting and diarrhea secondary to viral gastroenteritis, resolving Patient tolerating regular diet Mildly elevated LFTs Hepatitis B surface antigen negative Hepatitis C antibody negative Closely monitor liver function and avoid hepatotoxic medications She has not had BM since admission, will continue miralax and reglan Continue antiemetics GI following (2) GERD (gastroesophageal reflux disease) Current Visit: Yes Status: Acute Assessment and plan: Left upper quadrant pain radiating to back, chronic GERD, negative Lipase Last EGD 05/25/[address] Green revealed Grade I varices, diffuse mild inflammation in the stomach, pathology report revealed chronic gastritis with foveolar hyperplasia, No Helicobacter bacteria 01/23/18 CT abd/plv without contrast negative for acute intra-abdominal process 01/28/[address] abd/plv with contrast reveals questionable mucosal thickening at the greater curvature of the stomach may represent underlying gastritis or peptic ulcer disease. Discontinue hydrocodone Increased home dose of Prilosec to 40mg PO daily and started Carafate NPO, awaiting endoscopy today. Qualifiers: Esophagitis presence: esophagitis presence not specified Qualified Code(s) : K21.9 - Gastro-esophageal reflux disease without esophagitis (3) Adrenal insufficiency Current Visit: Yes Status: Chronic Assessment and plan: History of [place]'s, taking oral steroids Was initially placed on stress dose steroids IV Resume oral steroids and stop IV hydrocortisone at this time CT abd/plv reveals bilateral adrenal adenomas, stable. Monitor closely (4) Hypokalemia Current Visit: Yes Status: Resolved Assessment and plan: Supplement K. Mag level WNL Continue monitoring (5) Leukopenia Current Visit: Yes Status: Resolved Assessment and plan: Leukopenia, resolved Peripheral blood smear revealed occasional immature bands, no blasts. RBCs appear normochromic normocytic. Platelets adequate. Discussed with oncology, leukopenia is likely from viral infection. Easy bruising is not likely due to hematology disorders. Consult canceled, appreciate oncology recommendations Continue monitoring Qualifiers: Leukopenia type: unspecified Qualified Code(s): D72.819 - Decreased white blood cell count, unspecified (6) Depression Current Visit: Yes Status: Chronic Assessment and plan: Continue home antidepressants. Outpatient notes reviewed. Patient has been weaned off Lexapro Qualifiers: Depression Type: unspecified Qualified Code(s): F32.9 - Major depressive disorder, single episode, unspecified (7) Hypothyroidism Current Visit: Yes Status: Chronic Assessment and plan: Continue home Synthroid Qualifiers: Hypothyroidism type: unspecified Qualified Code(s): E03.9 - Hypothyroidism , unspecified (8) Seizure disorder Current Visit: Yes Status: Chronic Assessment and plan: Continue antiepileptic medications (9) DVT prophylaxis Current Visit: No Status: Acute Assessment and plan: SQ heparin - Time Spent With Patient Total time spent is greater than 50% in coordination of care (as documented) at patient's floor/unit and/or counseling patient: - Subjective Interval history: Patient seen and examined resting comfortably in bed. Patient reports ongoing intermittent LUQ abd pain radiating to her back. She denies nausea or vomiting. EGD was not performed yesterday. Patient is NPO for EGD today. - Constitutional Vitals: Temp Pulse Resp BP Pulse Ox 98.2 F 63 14 98/61 97 01/30/18 06:33 01/30/18 06:33 01/30/18 06:33 01/30/18 06:33 01/30/18 06:33 General appearance: Present: cooperative, A&O X 3, pleasant, no acute distress, answers questions appropriately - Head Head exam: Present: atraumatic, normocephalic - Eye Eye exam: Present: PERRL, conjuntiva pink, sclera anicteric Pupils: Present: PERRL - ENT ENT exam: Present: mucous membranes dry, normal oropharynx - Neck Neck exam general surgery: Present: supple, trachea midline. Absent: lymphadenopathy - Respiratory Respiratory exam: Present: CTAB. Absent: accessory muscle use, rales, rhonchi, wheezes - Cardiovascular Cardiovascular exam: Present: RRR, +S1, +S2. Absent: diastolic murmur, gallop, rubs, systolic murmur - GI/Abdominal GI/Abdominal exam: Present: normal bowel sounds, soft, tenderness (LUQ), no peritoneal signs. Absent: distended - Extremities Exam Extremities exam: Present: normal inspection, warm, radial pulses palpable and symmetrical. Absent: calf tenderness, cyanotic, pedal edema - Back Exam Back exam: Present: normal inspection, tenderness (previous surgical site intact ). Absent: paraspinal tenderness, rash noted - Neurological Exam Neurological exam: Present: CN II-XII intact, oriented X3, no focal deficits. Absent: pronater drift, facial droop, speech deficit - Psychiatric Psychiatric exam: Present: normal affect, normal mood - Skin Skin exam: Present: dry, intact, warm Internal Medicine: Result - Labs CBC & Chem 7: 01/29/18 06:31 01/30/18 05:26 Labs: BMP 01/30/18 05:26 Sodium 141 Potassium 3.5 Chloride 105 Carbon Dioxide 27 BUN 10 Creatinine 0.87 Glucose 91 Calcium 9.3 - ABG Interpretation ABG results: PT/INR, D-dimer PT 11.3 Seconds (9.4-12.1) 01/23/18 20:11 - Pulse Oximetry Interpretation Digit-Finger Pulse Oximetry Readin (On RA) Consult Discharge Plan - Plan Referrals: Dustin Foley [Partnered Physician] - 02/01/18 1:55 pm
[2018-01-30] MEDS ORDERED: Lidocaine -MPF 2% 2 ML VIAL ONE (09:37)
[2018-01-30] MEDS ORDERED: *HR* Propofol 200 MG/20 ML VIAL IVP ONE ×2 (09:37→10:52)
[2018-01-30] MEDS: Hydrocortisone 10 MG TABLET PO SCH ×2 (10:29→18:18)
[2018-01-30] MEDS: Cyanocobalamin (B-12) 1,000 MCG TABLET PO SCH (10:29)
[2018-01-30] MEDS: Sucralfate 1 GM TABLET PO SCH ×4 (10:29→21:53)
[2018-01-30] MEDS: lamoTRIgine 100 MG TABLET PO SCH (10:29)
[2018-01-30] MEDS: Aspirin Enteric Coated 81 MG Tablet PO SCH (10:29)
[2018-01-30] MEDS: (Vilazodone Hcl [Viibryd] 40 MG) PO SCH (10:30)
--- NOTE | 2018-01-30 11:31 | Anesthesia Evaluation PreOp ---
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 Meridian's dz) Anesthesia History: Past Anesthesia (Hyster, Orthopedic surgery, Back surgery x 8, Elbow surgery x 3, R-CTR, R-TSR reverse. Battery replacement for stim) Alcohol Use: none Drug use: none Medications and Allergies Aspirin [Adult Low Dose Aspirin EC] 81 mg PO DAILY 11/18/15 [History] Cyanocobalamin (Vitamin B-12) [Vitamin B12] 1,000 mcg PO DAILY 11/18/15 [History ] Dicyclomine 20 mg PO BID 11/18/15 [History] Hydrocortisone Sod Succ/Pf [Solu-Cortef 100 mg Vial] 100 mg IJ AD 11/18/15 [ History] Hydrocortisone [Cortef] 20 mg PO QAM 11/18/15 [History] Nitroglycerin [Nitrostat] 0.4 mg SL Q5M PRN 02/22/16 [History] Linaclotide [Linzess] 145 mcg PO DAILY PRN 07/06/16 [History] Pantoprazole Sodium [Protonix] 40 mg PO DAILY 07/06/16 [History] Estradiol [Estrace] 1 mg PO DAILY 05/23/17 [History] Prazosin [Minipress] 1 mg PO HS 05/23/17 [History] Progesterone,Micronized [Progesterone] 200 mg PO QPM 05/23/17 [History] Somatropin [Genotropin] 0.4 mg SQ QPM 05/23/17 [History] Benzonatate [Tessalon] 200 mg PO TID PRN #30 capsule 12/16/17 [Rx] Ergocalciferol (VITAMIN D2) [Vitamin D2] 50,000 unit PO QWEEK 01/23/18 [History] Hydrocortisone [Cortef] 10 mg PO QPM 01/23/18 [History] Venlafaxine XR (24 HR) [Effexor XR] 75 mg PO DAILY 01/23/18 [History] lamoTRIgine [Lamictal] 150 mg PO QAM 01/23/18 [History] Levothyroxine [Synthroid] 150 mcg PO DAILY 06/21/18 [History] Quetiapine Fumarate [Seroquel] 300 mg PO HS 01/24/18 [History] Vilazodone HCl [Viibryd] 40 mg PO DAILY 01/24/18 [History] 3 Allergy/AdvReac Type Severity Reaction Status Date / Time No Known Allergies Allergy Verified 01/23/18 18:48 - Meds/Allergy Pre-op Review Medications Reviewed: Yes Allergies Reviewed: Yes Beta Blockers on Current Med List: No Anesthesia Results - Labs 01/29/18 06:31 01/30/18 05:26 Laboratory Results Impressions Chest X-Ray 01/23/18 20:12 IMPRESSION: No acute process. D/ / Alfred Newby MD / Alfred Newby MD Interpreting Provider: Alfred Newby MD X-Ray 01/26/18 11:25 IMPRESSION: Nonspecific, nonobstructive bowel gas pattern. D/ / Eduardo Khoury MD / Eduardo Khoury MD Interpreting Provider: Eduardo Khoury MD Abdomen/Pelvis CT 01/28/18 15:45 IMPRESSION: 1. Questionable mucosal thickening at the greater curvature of the stomach may represent underlying gastritis or peptic ulcer disease. Consider follow-up evaluation with endoscopy. 2. Bilateral adrenal adenomas, stable. D/ / Robin Hankins MD / Robin Hankins MD Interpreting Provider: Robin Hankins MD Anesthesia Exam Vital Signs Temp Pulse Resp BP Pulse Ox 01/30/18 10:23 97.6 F 65 16 107/69 96 01/30/18 09:00 96 01/30/18 06:33 98.2 F 63 14 98/61 97 01/30/18 04:21 98.4 F 65 16 92/50 95 01/29/18 23:52 98.3 F 63 16 102/66 96 01/29/18 18:58 98.0 F 66 16 105/66 97 01/29/18 14:15 98.1 F 59 16 109/70 96 Intake and Output 01/29/18 01/30/18 01/30/18 23:59 07:59 15:59 Intake Total 1000 / 1000 0 / 0 Output Total 600 / 600 200 / 200 50 / 50 Balance 400 / 400 -200 / -200 -50 / -50 Intake: Oral 1000 / 1000 0 / 0 Output: Urine 600 / 600 200 / 200 50 / 50 Other: Meal clears NPO BREAKFAST Percent of Meal Consumed 90% Weight 84 kg Blood Glucose* 111 97 93 Patient Weight 01/30/18 23:59 Weight 84 kg Height: 5'10" Weight: 185# NPO (# of Hours): MNoc - HEENT Pupil (Motor): Pupils equal, EOMI - CALCULATOR OPERATOR LOC: Oriented CALCULATOR OPERATOR Motor: Normal RUE, Normal LUE, Normal RLE, Normal LLE, Normal Face CALCULATOR OPERATOR Sensory: Normal: RUE, LUE, RLE, LLE, Face - Cardiac Rhythm: Regular Murmur: None - Pulmonary Breath Sounds: bilateral Clear Respiratory Effort: Symmetrical Anesthesia Assess/Plan ASA Score: 3 Modified [place] Scale for Level of Consciousness: Cooperative, oriented, and tranquil Anesthetic Plan: MAC Monitoring Plan: Standard Monitors Recovery Plan: Other Anes Supervising Prov Stmt: Pt seen/Evaluated, R&B Discussed, questions answered and consent obtained. Larry Marquez MD
[2018-01-30] MEDS ORDERED: Dexamethasone 4 MG/ML VIAL ONE (11:40)
[2018-01-30] MEDS ORDERED: Ondansetron 4 MG/2 ML VIAL ONE (11:40)
[2018-01-30] MEDS ORDERED: *HR* Midazolam HCl 2 MG/2 ML VIAL ONE (11:50)
[2018-01-30] MEDS: 0.9 % Sodium Chloride 500 ML IVC SCH (12:42)
[2018-01-30] MEDS ORDERED: Simethicone 40 MG/0.6 ML MLS IR ONE (12:59)
[2018-01-30] MEDS ORDERED: Tetracaine/Benzocaine/Butamben 200MG/SPRAY (100SPY/BOT) MM ONE (12:59)
[2018-01-30] MEDS: SOMATROPIN SQ SCH (18:17)
[2018-01-30] MEDS: (Progesterone,Micronized [Progesterone] 200 MG) PO SCH (21:54)
[2018-01-30] MEDS ORDERED: Prochlorperazine 10 MG/2 ML VIAL IVP ONE (22:00)
[2018-01-31] MEDS: 0.9 % Sodium Chloride 500 ML IVC SCH ×2 (00:40→08:13)
[2018-01-31] MEDS: *HR* Heparin 5,000 UNIT/ML VIAL SQ SCH (05:54)
[2018-01-31] MEDS: *HR* Promethazine 25 MG/ML VIAL IVP PRN (05:58)
[2018-01-31 07:08] VITALS: BP 95/69
[2018-01-31 07:46] LABS: Cytomegalovirus DNA (PCR) NOT DETECTED
[2018-01-31] MEDS: Aspirin Enteric Coated 81 MG Tablet PO SCH (08:04)
[2018-01-31] MEDS: Sucralfate 1 GM TABLET PO SCH (08:04)
[2018-01-31] MEDS: Cyanocobalamin (B-12) 1,000 MCG TABLET PO SCH (08:04)
[2018-01-31] MEDS: lamoTRIgine 100 MG TABLET PO SCH (08:05)
[2018-01-31] MEDS: Hydrocortisone 10 MG TABLET PO SCH (08:05)
[2018-01-31] MEDS: (Vilazodone Hcl [Viibryd] 40 MG) PO SCH (08:05)
--- NOTE | 2018-01-31 08:54 | Discharge Summary ---
<Catarino Collier - Last Filed: 01/31/18 08:51> - NOTES TO OUTPATIENT PROVIDER Notes to Outpatient Provider: Continue Carafate and Protonix. Follow up with n EGD biopsy results with PCP and GI. Repeat CBC and CMP in 1 week. Orders not resulted at time of discharge: Pending orders 01/30/18 13:06 H. pylori Urease Culture [RM] Stat Date of Encounter: 01/31/18 Time of Encounter: 08:51 - Discharge Diagnosis (1) Acute gastroenteritis Priority: Primary Status: Acute Assessment and Plan: Nausea vomiting and diarrhea secondary to viral gastroenteritis, resolving Patient tolerating regular diet Mildly elevated LFTs Hepatitis B surface antigen negative Hepatitis C antibody negative Closely monitor liver function and avoid hepatotoxic medications She has not had BM since admission, will continue miralax and reglan Continue antiemetics GI following (2) GERD (gastroesophageal reflux disease) Priority: Primary Status: Acute Assessment and Plan: Left upper quadrant pain radiating to back, chronic GERD, negative Lipase Last EGD 05/25/[address] Green revealed Grade I varices, diffuse mild inflammation in the stomach, pathology report revealed chronic gastritis with foveolar hyperplasia, No Helicobacter bacteria 01/23/18 CT abd/plv without contrast negative for acute intra-abdominal process 01/28/[address] abd/plv with contrast reveals questionable mucosal thickening at the greater curvature of the stomach may represent underlying gastritis or peptic ulcer disease. Discontinue hydrocodone Increased home dose of Prilosec to 40mg PO daily and started Carafate EGD revealed esophagitis and gastritis. Continue Carafate and PPI. Biopsy reults pending Qualifiers: Esophagitis presence: esophagitis presence not specified Qualified Code(s) : K21.9 - Gastro-esophageal reflux disease without esophagitis (3) Adrenal insufficiency Priority: Secondary Status: Chronic Assessment and Plan: History of Jenkins's, taking oral steroids Was initially placed on stress dose steroids IV Resume oral steroids and stop IV hydrocortisone at this time CT abd/plv reveals bilateral adrenal adenomas, stable. Monitor closely (4) Leukopenia Priority: Secondary Status: Resolved Assessment and Plan: Leukopenia, resolved Peripheral blood smear revealed occasional immature bands, no blasts. RBCs appear normochromic normocytic. Platelets adequate. Discussed with oncology, leukopenia is likely from viral infection. Easy bruising is not likely due to hematology disorders. Consult canceled, appreciate oncology recommendations Continue monitoring Qualifiers: Leukopenia type: unspecified Qualified Code(s): D72.819 - Decreased white blood cell count, unspecified (5) Depression Priority: Secondary Status: Chronic Assessment and Plan: Continue home antidepressants. Outpatient notes reviewed. Patient has been weaned off Lexapro Qualifiers: Depression Type: unspecified Qualified Code(s): F32.9 - Major depressive disorder, single episode, unspecified (6) Hypothyroidism Priority: Secondary Status: Chronic Assessment and Plan: Continue home Synthroid Qualifiers: Hypothyroidism type: unspecified Qualified Code(s): E03.9 - Hypothyroidism , unspecified (7) Seizure disorder Priority: Secondary Status: Chronic Assessment and Plan: Continue antiepileptic medications (8) DVT prophylaxis Priority: Secondary Status: Acute Assessment and Plan: Ambulate (9) Hypokalemia Priority: Secondary Status: Resolved Assessment and Plan: Supplemented K. Mag level WNL Continue monitoring Hospital course: Ms. Adler is a 52 year old female present to ER for nausea, vomiting, and diarrhea. 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 Patient was admitted on 01/23/18 and treated for acute gastroenteritis. She had watery diarrhea before being admitted, but later progress ed to constipation since admission. She reported continued LUQ abdominal pain radiating to the left flank. She denied hepatitis, or liver disease.has a history of alcohol abuse but states she has been sober for the past [address] abdomen showed questionable mucosal thickening at the greater curvature of the stomach may represent underlying gastritis or peptic ulcer disease. She had elevated LFTs on admission, which resolved. Her last EGD was performed 05/22/18 grade I varices and colonosopy on 04/2616 which was normal. GI was consulted and performed another EGD which revealed esophagitis and gastritis. Continue Carafate and PPI. Biopsy reults pending. Increased home dose of Prilosec to 40mg PO daily and started Carafate. Patient agreed to follow up with PCP within 1-2 weeks. Discharge discussed with: patient - Time Spent with Patient Total time spent providing and/or coordinating discharge services: - Discharge Medications Prescriptions: Omeprazole 40 mg PO BID #120 tablet. Polyethylene Glycol 3350 [MiraLAX] 17 gm PO DAILY PRN #30 powd.pack PRN Reason: Constipation Sucralfate [Carafate] 1 gm PO QIDAC #120 tablet Home Medications: Aspirin [Adult Low Dose Aspirin EC] 81 mg PO DAILY 11/18/15 [History] Cyanocobalamin (Vitamin B-12) [Vitamin B12] 1,000 mcg PO DAILY 11/18/15 [History ] Dicyclomine 20 mg PO BID 11/18/15 [History] Hydrocortisone Sod Succ/Pf [Solu-Cortef 100 mg Vial] 100 mg IJ AD 11/18/15 [ History] Hydrocortisone [Cortef] 20 mg PO QAM 11/18/15 [History] Nitroglycerin [Nitrostat] 0.4 mg SL Q5M PRN 02/22/16 [History] Linaclotide [Linzess] 145 mcg PO DAILY PRN 07/06/16 [History] Estradiol [Estrace] 1 mg PO DAILY 05/23/17 [History] Prazosin [Minipress] 1 mg PO HS 05/23/17 [History] Progesterone,Micronized [Progesterone] 200 mg PO QPM 05/23/17 [History] Somatropin [Genotropin] 0.4 mg SQ QPM 05/23/17 [History] Benzonatate [Tessalon] 200 mg PO TID PRN #30 capsule 12/16/17 [Rx] Ergocalciferol (VITAMIN D2) [Vitamin D2] 50,000 unit PO QWEEK 01/23/18 [History] Hydrocortisone [Cortef] 10 mg PO QPM 01/23/18 [History] Venlafaxine XR (24 HR) [Effexor XR] 75 mg PO DAILY 01/23/18 [History] lamoTRIgine [Lamictal] 150 mg PO QAM 01/23/18 [History] Levothyroxine [Synthroid] 150 mcg PO DAILY 01/24/18 [History] Quetiapine Fumarate [Seroquel] 300 mg PO HS 01/24/18 [History] Vilazodone HCl [Viibryd] 40 mg PO DAILY 01/24/18 [History] Omeprazole 40 mg PO BID #120 tablet. 01/31/18 [Rx] Polyethylene Glycol 3350 [MiraLAX] 17 gm PO DAILY PRN #30 powd.pack 01/31/18 [Rx ] Sucralfate [Carafate] 1 gm PO QIDAC #120 tablet 01/31/18 [Rx] Allergies/Adverse Reactions: 3 Allergy/AdvReac Type Severity Reaction Status Date / Time No Known Allergies Allergy Verified 01/23/18 18:48 Date of admission: 01/23/18 22:35 Primary care physician: Scarlett Talbert DO Consults: 01/29/18 08:01 Consult to Gastroenterology [CONS] Routine Consulting Provider: [facility] [place] Reason for Consult: LUQ pain, mucosal thickening on CT, h/o gastritis Time Notified: 08:02 Call Completed: Yes Discharging clinician: Catarino Collier Anticipated date of discharge: 01/31/18 - Constitutional Vitals: Temp Pulse Resp BP Pulse Ox 97.7 F 66 14 95/69 94 01/31/18 07:03 01/31/18 07:03 01/31/18 07:03 01/31/18 07:03 01/31/18 03:03 General appearance: Present: cooperative, A&O X 3, pleasant, no acute distress, answers questions appropriately - Head Head exam: Present: atraumatic, normocephalic - Eye Eye exam: Present: PERRL, conjuntiva pink, sclera anicteric Pupils: Present: PERRL - ENT ENT exam: Present: mucous membranes moist, normal oropharynx - Neck Neck exam general surgery: Present: supple, trachea midline. Absent: lymphadenopathy - Respiratory Respiratory exam: Present: CTAB. Absent: accessory muscle use, rales, rhonchi, wheezes - Cardiovascular Cardiovascular exam: Present: RRR, +S1, +S2. Absent: diastolic murmur, gallop, rubs, systolic murmur - GI/Abdominal GI/Abdominal exam: Present: normal bowel sounds, soft, no peritoneal signs. Absent: distended, tenderness - Extremities Exam Extremities exam: Present: warm, radial pulses palpable and symmetrical. Absent : calf tenderness, cyanotic, pedal edema - Back Exam Back exam: Present: normal inspection. Absent: paraspinal tenderness, tenderness - Neurological Exam Neurological exam: Present: CN II-XII intact, oriented X3, no focal deficits. Absent: pronater drift, facial droop, speech deficit - Psychiatric Psychiatric exam: Present: normal affect, normal mood - Skin Skin exam: Present: dry, intact, warm - Patient Status Disposition: Home, Self-Care Condition: Good Functional capacity at discharge: independent ambulation Overall status at discharge: patient is back to baseline - Discharge Instructions Follow Up With: Ruth Toro CNP [Partnered Physician] - 02/04/18 10:30 am - Diet and Activity Activity: increase activity as tolerated, resume usual activities as tolerated Diet: regular diet (mechanical soft diet) <Eddy Freedman - Last Filed: 01/31/18 16:09> Orders not resulted at time of discharge: Pending orders 01/30/18 13:06 H. pylori Urease Culture [RM] Stat Date of Encounter: 01/31/18 - Discharge Diagnosis (1) Hypothyroidism Status: Chronic Qualifiers: Hypothyroidism type: unspecified Qualified Code(s): E03.9 - Hypothyroidism , unspecified (2) DVT prophylaxis Status: Acute (3) Seizure disorder Status: Chronic (4) Depression Status: Chronic Qualifiers: Depression Type: unspecified Qualified Code(s): F32.9 - Major depressive disorder, single episode, unspecified (5) Adrenal insufficiency Status: Chronic (6) Acute gastroenteritis Status: Acute (7) Leukopenia Status: Resolved Qualifiers: Leukopenia type: unspecified Qualified Code(s): D72.819 - Decreased white blood cell count, unspecified (8) GERD (gastroesophageal reflux disease) Status: Acute Qualifiers: Esophagitis presence: esophagitis presence not specified Qualified Code(s) : K21.9 - Gastro-esophageal reflux disease without esophagitis (9) Hypokalemia Status: Resolved Hospital course: Ms. Adler is a 52 year old female - Time Spent with Patient Total time spent providing and/or coordinating discharge services: Date of admission: 01/23/18 22:35 Primary care physician: Scarlett Talbert DO Consults: 01/29/18 08:01 Consult to Gastroenterology [CONS] Routine Consulting Provider: [facility] [place] Reason for Consult: LUQ pain, mucosal thickening on CT, h/o gastritis Time Notified: 08:02 Call Completed: Yes - Constitutional Vitals: Temp Pulse Resp BP Pulse Ox 97.7 F 66 14 95/69 94 01/31/18 07:03 01/31/18 07:03 01/31/18 07:03 01/31/18 07:03 01/31/18 03:03 - Attending Attestation I performed an independent interview and exam of this patient. I agree with the findings, assessment, and plan of Dr. Collier, internal medicine resident. EGD results noted which show esophagitis and gastritis. She will continue on increased dose of proton inhibitor as well as Carafate. Patient still has some mild nausea but expect this to improve slowly. She is otherwise doing well and stable for discharge. She will follow-up with her primary care provider.
== END 2018-01-31 11:45 | disposition home or self-care (01) ==
LOC: 3ANU 19:32 → EMEROO 19:32 → SUATTDRO 22:35 → 3ANU 22:49
PROVIDERS: ADMIT Internal Medicine; ATTEND Hospitalist
PROC: ENDOEBX (2018-01-30 15:30)

== ENCOUNTER 2018-04-09 20:35 | Inpatient (IN) ==
[2018-04-09 22:53] LABS: Basophils % 0.2 %; Eosinophils % 0.2 %; Hematocrit 39.6 % (35.3-44.9); Hemoglobin 13.1 g/dL (11.5-15.4); Immature Granulocytes % 0.1 % (0-4); Lymphocytes # 2.1 K/mcL (0.6-4.6); Lymphocytes % 24.3 %; Mean Corpuscular HGB Conc 33.1 g/dL (31.6-35.5); Mean Corpuscular Volume 87.8 fL (83.0-100.0); Monocytes # 0.8 K/mcL (0.0-1.3); Monocytes % 9.7 %; Neutrophils # 5.5 K/mcL (1.6-8.9); Platelet Count 238 K/mcL (140-400); Red Blood Count 4.51 M/mcL (3.82-4.97); Red Cell Distribution Width 13.3 % (11.5-14.5); Segmented Neutrophils % 65.5 %
[2018-04-09] MEDS ORDERED: Hydrocortisone Sodium Succ 100 MG/2 ML VIAL IVP ONE (23:01)
[2018-04-09] MEDS ORDERED: Ondansetron 4 MG/2 ML VIAL IVP STA (23:02)
[2018-04-09] MEDS ORDERED: Mag Hydrox/Al Hydrox/Simeth 30 ML UDC PO STA (23:02)
[2018-04-09] MEDS ORDERED: Famotidine 20 MG/2 ML VIAL IVP ONE (23:03)
--- NOTE | 2018-04-09 23:06 | Emergency Department Note ---
Disposition Clinical Impression: Adrenal insufficiency Disposition: Admitted As Inpatient Condition: Good General Adult HPI - General Chief complaint: ED Abdominal Pain Stated complaint: abdominal pain,nausea was here yesterday Source: patient Limitations: no limitations - History of Present Illness HPI Narrative: Patient presents complaining of epigastric pain and nausea and vomiting. Was seen her yesterday with same complaint. She has Berks's disease, was given a dose of Solu-Cortef last night. Try to take her medicines morning but vomited them up. Blood pressures are running on the low side during the day, heart rate is range from 49-103 with most of the readings in the 70s and 80s. No blood pressure readings been below 100 systolic. The complaint today is the epigastric pain and nausea. It does not radiate. No lower abdominal symptoms or chest symptoms. No cough. No hematemesis, hematochezia, bright red blood per rectum or melena. No fever. She is status post cholecystectomy within the last year. No history of ulcer disease, had a scope within the last year. Food makes her symptoms worse. No associated diarrhea. No sick contacts. No dyspnea. No history of heart disease. Pain Scale: 8 - Related Data Home Medications Medication Instructions Recorded Confirmed Aspirin [Adult Low Dose Aspirin EC] 81 mg PO DAILY 11/18/15 04/10/18 Cyanocobalamin (Vitamin B-12) 1,000 mcg PO DAILY 11/18/15 04/10/18 [Vitamin B12] Dicyclomine 20 mg PO BID 11/18/15 04/10/18 Hydrocortisone Sod Succ/Pf 100 mg IJ AD PRN 11/18/15 04/10/18 [Solu-Cortef 100 mg Vial] Hydrocortisone [Cortef] 20 mg PO QAM 11/18/15 04/10/18 Linaclotide [Linzess] 145 mcg PO DAILY PRN 07/06/16 04/10/18 Estradiol [Estrace] 1 mg PO DAILY 05/23/17 04/10/18 Prazosin [Minipress] 1 mg PO HS 05/23/17 04/10/18 Progesterone,Micronized 200 mg PO QPM 05/23/17 04/10/18 [Progesterone] Somatropin [Genotropin] 0.4 mg SQ QPM 05/23/17 04/10/18 Ergocalciferol (VITAMIN D2) 50,000 unit PO QWEEK 01/23/18 04/10/18 [Vitamin D2] Hydrocortisone [Cortef] 10 mg PO QPM 01/23/18 04/10/18 Venlafaxine XR (24 HR) [Effexor XR] 75 mg PO DAILY 01/23/18 04/10/18 lamoTRIgine [Lamictal] 150 mg PO QAM 01/23/18 04/10/18 Levothyroxine [Synthroid] 150 mcg PO DAILY 01/24/18 04/10/18 Quetiapine Fumarate [Seroquel] 300 mg PO HS 01/24/18 04/10/18 Buspirone HCl [Buspar] 7.5 mg PO BID 04/10/18 04/10/18 Levomilnacipran HCl [Fetzima] 80 mg PO QAM 04/10/18 04/10/18 Liothyronine Sodium [Cytomel] 25 mcg PO BID 04/10/18 04/10/18 Previous Rx's Medication Instructions Recorded Omeprazole 40 mg PO BID #120 tablet. 01/31/18 Polyethylene Glycol 3350 [MiraLAX] 17 gm PO DAILY PRN #30 powd.pack 01/31/18 Ondansetron ODT [Zofran ODT] 4 mg SL Q8HR PRN #14 tab.rapdis 04/08/18 Ondansetron ODT [Zofran ODT] 4 mg SL Q8HR 30 Days #90 tab.rapdis 04/13/18 Promethazine [Phenergan] 12.5 mg PO Q8HR 14 Days #35 tablet 04/13/18 Allergies Allergy/AdvReac Type Severity Reaction Status Date / Time No Known Allergies Allergy Verified 01/23/18 18:48 All systems ED: reviewed and negative except as stated. 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 Gen.: Well-developed, well-nourished patient lying in bed who appears nontoxic. Head: Atraumatic, normocephalic. Eyes: Sclerae anicteric. ENT: Mucous membranes moist. Heart: Regular rate and rhythm without appreciable murmur. Lungs: Normal respiratory pattern without respiratory distress, lungs clear to auscultation bilaterally. Abdomen: Soft, isolated tenderness in the epigastrium, nondistended, no guarding or peritoneal signs. Skin: Warm and dry without rash. Neurologic: Awake, alert with normal speech and mental status. Cranial nerves grossly intact. No focal deficits or lateralizing signs. Psychiatric: Normal mood and affect. Muscular skeletal: No peripheral edema. No signs of trauma or DVT. - General Limitations: no limitations General appearance: alert Course Vital Signs Temperature 98 F 04/09/18 20:47 Pulse Rate 100 04/09/18 20:47 Respiratory Rate 20 04/09/18 20:47 Blood Pressure 125/79 04/09/18 20:47 O2 Sat by Pulse Oximetry 96 04/09/18 20:47 Temperature 98.0 F 04/13/18 07:42 Pulse Rate 75 04/13/18 07:42 Respiratory Rate 16 04/13/18 07:42 Blood Pressure 106/66 04/13/18 07:42 O2 Sat by Pulse Oximetry 95 04/13/18 07:42 Oxygen Delivery Oxygen Delivery Room Air Medical Decision Making - Lab Data Result diagrams: 04/13/18 04:04 04/13/18 04:04 Lab Results 04/09/18 04/09/18 04/11/18 Range/Units 22:31 22:31 04:58 WBC 8.5 4.9 (4.3-11.1) K/mcL RBC 4.51 3.96 (3.82-4.97) M/mcL Hgb 13.1 11.8 (11.5-15.4) g/dL Hct 39.6 35.7 (35.3-44.9) % MCV 87.8 90.2 (83.0-100.0) fL MCH 29.0 29.8 (28.0-33.3) pg MCHC 33.1 33.1 (31.6-35.5) g/dL RDW 13.3 13.3 (11.5-14.5) % Plt Count 238 194 (140-400) K/mcL MPV 10.0 10.0 (9.4-12.4) fL Immature Gran % 0.1 0.2 (0-4) % Seg Neutrophils % 65.5 47.9 % Lymphocytes % 24.3 42.7 % Monocytes % 9.7 7.2 % Eosinophils % 0.2 1.8 % Basophils % 0.2 0.2 % Neutrophils # 5.5 2.3 (1.6-8.9) K/mcL Lymphocytes # 2.1 2.1 (0.6-4.6) K/mcL Monocytes # 0.8 0.4 (0.0-1.3) K/mcL Eosinophils # 0.0 0.1 (0.0-0.6) K/mcL Basophils # 0.0 0.0 (0.0-0.2) K/mcL Sodium 141 (136-145) mEq/L Potassium 3.7 (3.5-5.1) mEq/L Chloride 104 (98-107) mEq/L Carbon Dioxide 30 H (23-29) mEq/L BUN 12 (6-20) mg/dL Creatinine 1.16 (0.60-1.20) mg/dL Est GFR ( Amer) 59 L (> 60) Est GFR (Non-Af Amer) 49 L (> 60) BUN/Creatinine Ratio 10 (6-26) Glucose 103 (70-105) mg/dL Calculated Osmolality 292 (280-300) Calcium 10.1 (8.6-10.3) mg/dL Total Bilirubin 0.7 (0.3-1.0) mg/dL Direct Bilirubin 0.1 (0.0-0.2) mg/dL Indirect Bilirubin 0.6 (0.0-1.2) mg/dL AST 114 H (13-39) Units/L ALT 64 H (7-52) Units/L Alkaline Phosphatase 111 H (34-104) Units/L Serum Total Protein 7.1 (6.4-8.9) g/dL Albumin 4.7 (3.5-5.7) g/dL Globulin 2.4 (2.4-3.5) g/dL Albumin/Globulin Ratio 2.0 (1.1-2.2) Lipase 25 (11-82) Units/L 04/11/18 04/12/18 04/12/18 Range/Units 04:58 05:12 05:12 WBC 4.3 (4.3-11.1) K/mcL RBC 3.81 L (3.82-4.97) M/mcL Hgb 10.9 L (11.5-15.4) g/dL Hct 33.9 L (35.3-44.9) % MCV 89.0 (83.0-100.0) fL MCH 28.6 (28.0-33.3) pg MCHC 32.2 (31.6-35.5) g/dL RDW 13.3 (11.5-14.5) % Plt Count 188 (140-400) K/mcL MPV 10.0 (9.4-12.4) fL Immature Gran % 0.2 (0-4) % Seg Neutrophils % 37.9 % Lymphocytes % 51.9 % Monocytes % 7.9 % Eosinophils % 1.9 % Basophils % 0.2 % Neutrophils # 1.6 (1.6-8.9) K/mcL Lymphocytes # 2.2 (0.6-4.6) K/mcL Monocytes # 0.3 (0.0-1.3) K/mcL Eosinophils # 0.1 (0.0-0.6) K/mcL Basophils # 0.0 (0.0-0.2) K/mcL Sodium 142 142 (136-145) mEq/L Potassium 3.5 3.4 L (3.5-5.1) mEq/L Chloride 109 H 109 H (98-107) mEq/L Carbon Dioxide 23 27 (23-29) mEq/L BUN 13 7 (6-20) mg/dL Creatinine 0.75 0.74 (0.60-1.20) mg/dL Est GFR ( Amer) > 60 > 60 (> 60) Est GFR (Non-Af Amer) > 60 > 60 (> 60) BUN/Creatinine Ratio 17 9 (6-26) Glucose 83 104 (70-105) mg/dL Calculated Osmolality 293 292 (280-300) Calcium 8.7 8.8 (8.6-10.3) mg/dL Total Bilirubin 0.6 (0.3-1.0) mg/dL Direct Bilirubin 0.0 (0.0-0.2) mg/dL Indirect Bilirubin 0.6 (0.0-1.2) mg/dL AST 21 (13-39) Units/L ALT 29 (7-52) Units/L Alkaline Phosphatase 81 (34-104) Units/L Serum Total Protein 5.3 L (6.4-8.9) g/dL Albumin 3.5 (3.5-5.7) g/dL Globulin 1.8 L (2.4-3.5) g/dL Albumin/Globulin Ratio 1.9 (1.1-2.2) Lipase (11-82) Units/L
[2018-04-09 23:07] LABS: Albumin 4.7 g/dL (3.5-5.7); Bilirubin,Direct 0.1 mg/dL (0.0-0.2); Bilirubin,Indirect 0.6 mg/dL (0.0-1.2); Bilirubin,Total 0.7 mg/dL (0.3-1.0); Calcium 10.1 mg/dL (8.6-10.3); Globulin 2.4 g/dL (2.4-3.5); Potassium 3.7 mEq/L (3.5-5.1); Total Protein 7.1 g/dL (6.4-8.9)
[2018-04-10] MEDS ORDERED: Hyoscyamine 0.5 MG/ML MLS IVP ONE (00:24)
[2018-04-10] MEDS ORDERED: Ketamine *HR* 20 MG in 0.9 % Sodium Chloride 100 ML IVPB ONE (00:24)
[2018-04-10] MEDS ORDERED: Ondansetron 4 MG/2 ML VIAL IVP STA (00:24)
--- NOTE | 2018-04-10 06:09 | Emergency Department Note ---
Disposition Clinical Impression: Adrenal insufficiency Disposition: Admitted As Inpatient Condition: Good General Adult HPI - General Chief complaint: ED Abdominal Pain Stated complaint: abdominal pain,nausea was here yesterday Time Seen by Provider: 04/09/18 23:20 Source: patient Limitations: no limitations - History of Present Illness Pain Scale: 0 - Related Data Home Medications Medication Instructions Recorded Confirmed Aspirin [Adult Low Dose Aspirin EC] 81 mg PO DAILY 11/18/15 04/10/18 Cyanocobalamin (Vitamin B-12) 1,000 mcg PO DAILY 11/18/15 04/10/18 [Vitamin B12] Dicyclomine 20 mg PO BID 11/18/15 04/10/18 Hydrocortisone Sod Succ/Pf 100 mg IJ AD PRN 11/18/15 04/10/18 [Solu-Cortef 100 mg Vial] Hydrocortisone [Cortef] 20 mg PO QAM 11/18/15 04/10/18 Linaclotide [Linzess] 145 mcg PO DAILY PRN 07/06/16 04/10/18 Estradiol [Estrace] 1 mg PO DAILY 05/23/17 04/10/18 Prazosin [Minipress] 1 mg PO HS 05/23/17 04/10/18 Progesterone,Micronized 200 mg PO QPM 05/23/17 04/10/18 [Progesterone] Somatropin [Genotropin] 0.4 mg SQ QPM 05/23/17 04/10/18 Ergocalciferol (VITAMIN D2) 50,000 unit PO QWEEK 01/23/18 04/10/18 [Vitamin D2] Hydrocortisone [Cortef] 10 mg PO QPM 01/23/18 04/10/18 Venlafaxine XR (24 HR) [Effexor XR] 75 mg PO DAILY 01/23/18 04/10/18 lamoTRIgine [Lamictal] 150 mg PO QAM 01/23/18 04/10/18 Levothyroxine [Synthroid] 150 mcg PO DAILY 01/24/18 04/10/18 Quetiapine Fumarate [Seroquel] 300 mg PO HS 01/24/18 04/10/18 Buspirone HCl [Buspar] 7.5 mg PO BID 04/10/18 04/10/18 Levomilnacipran HCl [Fetzima] 80 mg PO QAM 04/10/18 04/10/18 Liothyronine Sodium [Cytomel] 25 mcg PO BID 04/10/18 04/10/18 Previous Rx's Medication Instructions Recorded Omeprazole 40 mg PO BID #120 tablet. 01/31/18 Polyethylene Glycol 3350 [MiraLAX] 17 gm PO DAILY PRN #30 powd.pack 01/31/18 Ondansetron ODT [Zofran ODT] 4 mg SL Q8HR PRN #14 tab.rapdis 04/08/18 Ondansetron ODT [Zofran ODT] 4 mg SL Q8HR 30 Days #90 tab.rapdis 04/13/18 Promethazine [Phenergan] 12.5 mg PO Q8HR 14 Days #35 tablet 04/13/18 Allergies Allergy/AdvReac Type Severity Reaction Status Date / Time No Known Allergies Allergy Verified 01/23/18 18:48 Past Medical History - Past Medical History Medical history: Reports: other Surgical history: Reports: hysterectomy, orthopedic, other, other Psychiatric history: Reports: depression, PTSD 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 PLANNER history: Reports: no 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 PLANNER history - Social History Smoking Status: Never smoker Smokeless Tobacco Status: No Alcohol use: Reports: none Drug use: Reports: none Physical Exam - General Limitations: no limitations General appearance: alert Course Vital Signs Temperature 98 F 04/09/18 20:47 Pulse Rate 100 04/09/18 20:47 Respiratory Rate 20 04/09/18 20:47 Blood Pressure 125/79 04/09/18 20:47 O2 Sat by Pulse Oximetry 96 04/09/18 20:47 Temperature 98.0 F 04/13/18 07:42 Pulse Rate 75 04/13/18 07:42 Respiratory Rate 16 04/13/18 07:42 Blood Pressure 106/66 04/13/18 07:42 O2 Sat by Pulse Oximetry 95 04/13/18 07:42 Oxygen Delivery Oxygen Delivery Room Air Medical Decision Making - Lab Data Result diagrams: 04/13/18 04:04 04/13/18 04:04 Lab Results 04/09/18 04/09/18 04/11/18 Range/Units 22:31 22:31 04:58 WBC 8.5 4.9 (4.3-11.1) K/mcL RBC 4.51 3.96 (3.82-4.97) M/mcL Hgb 13.1 11.8 (11.5-15.4) g/dL Hct 39.6 35.7 (35.3-44.9) % MCV 87.8 90.2 (83.0-100.0) fL MCH 29.0 29.8 (28.0-33.3) pg MCHC 33.1 33.1 (31.6-35.5) g/dL RDW 13.3 13.3 (11.5-14.5) % Plt Count 238 194 (140-400) K/mcL MPV 10.0 10.0 (9.4-12.4) fL Immature Gran % 0.1 0.2 (0-4) % Seg Neutrophils % 65.5 47.9 % Lymphocytes % 24.3 42.7 % Monocytes % 9.7 7.2 % Eosinophils % 0.2 1.8 % Basophils % 0.2 0.2 % Neutrophils # 5.5 2.3 (1.6-8.9) K/mcL Lymphocytes # 2.1 2.1 (0.6-4.6) K/mcL Monocytes # 0.8 0.4 (0.0-1.3) K/mcL Eosinophils # 0.0 0.1 (0.0-0.6) K/mcL Basophils # 0.0 0.0 (0.0-0.2) K/mcL Sodium 141 (136-145) mEq/L Potassium 3.7 (3.5-5.1) mEq/L Chloride 104 (98-107) mEq/L Carbon Dioxide 30 H (23-29) mEq/L BUN 12 (6-20) mg/dL Creatinine 1.16 (0.60-1.20) mg/dL Est GFR ( Amer) 59 L (> 60) Est GFR (Non-Af Amer) 49 L (> 60) BUN/Creatinine Ratio 10 (6-26) Glucose 103 (70-105) mg/dL Calculated Osmolality 292 (280-300) Calcium 10.1 (8.6-10.3) mg/dL Total Bilirubin 0.7 (0.3-1.0) mg/dL Direct Bilirubin 0.1 (0.0-0.2) mg/dL Indirect Bilirubin 0.6 (0.0-1.2) mg/dL AST 114 H (13-39) Units/L ALT 64 H (7-52) Units/L Alkaline Phosphatase 111 H (34-104) Units/L Serum Total Protein 7.1 (6.4-8.9) g/dL Albumin 4.7 (3.5-5.7) g/dL Globulin 2.4 (2.4-3.5) g/dL Albumin/Globulin Ratio 2.0 (1.1-2.2) Lipase 25 (11-82) Units/L 04/11/18 04/12/18 04/12/18 Range/Units 04:58 05:12 05:12 WBC 4.3 (4.3-11.1) K/mcL RBC 3.81 L (3.82-4.97) M/mcL Hgb 10.9 L (11.5-15.4) g/dL Hct 33.9 L (35.3-44.9) % MCV 89.0 (83.0-100.0) fL MCH 28.6 (28.0-33.3) pg MCHC 32.2 (31.6-35.5) g/dL RDW 13.3 (11.5-14.5) % Plt Count 188 (140-400) K/mcL MPV 10.0 (9.4-12.4) fL Immature Gran % 0.2 (0-4) % Seg Neutrophils % 37.9 % Lymphocytes % 51.9 % Monocytes % 7.9 % Eosinophils % 1.9 % Basophils % 0.2 % Neutrophils # 1.6 (1.6-8.9) K/mcL Lymphocytes # 2.2 (0.6-4.6) K/mcL Monocytes # 0.3 (0.0-1.3) K/mcL Eosinophils # 0.1 (0.0-0.6) K/mcL Basophils # 0.0 (0.0-0.2) K/mcL Sodium 142 142 (136-145) mEq/L Potassium 3.5 3.4 L (3.5-5.1) mEq/L Chloride 109 H 109 H (98-107) mEq/L Carbon Dioxide 23 27 (23-29) mEq/L BUN 13 7 (6-20) mg/dL Creatinine 0.75 0.74 (0.60-1.20) mg/dL Est GFR ( Amer) > 60 > 60 (> 60) Est GFR (Non-Af Amer) > 60 > 60 (> 60) BUN/Creatinine Ratio 17 9 (6-26) Glucose 83 104 (70-105) mg/dL Calculated Osmolality 293 292 (280-300) Calcium 8.7 8.8 (8.6-10.3) mg/dL Total Bilirubin 0.6 (0.3-1.0) mg/dL Direct Bilirubin 0.0 (0.0-0.2) mg/dL Indirect Bilirubin 0.6 (0.0-1.2) mg/dL AST 21 (13-39) Units/L ALT 29 (7-52) Units/L Alkaline Phosphatase 81 (34-104) Units/L Serum Total Protein 5.3 L (6.4-8.9) g/dL Albumin 3.5 (3.5-5.7) g/dL Globulin 1.8 L (2.4-3.5) g/dL Albumin/Globulin Ratio 1.9 (1.1-2.2) Lipase (11-82) Units/L Attestation Statement - Attestation Attestation: I examined this patient and my medical decision-making was reviewed with the Resident Physician. I agree with the documented findings, disposition and treatment plan as described except to the extent set forth below. indings consistent with chronic adrenal insufficiency. We will admit for stress dose steroids in the setting of transaminitis. No abdominal pain at this time. Patient does have ongoing symptoms and we will admit for further management
[2018-04-10] MEDS ORDERED: (Linaclotide [Linzess] 145 MCG) PO PRN (10:08)
[2018-04-10] MEDS ORDERED: Levothyroxine Sodium 100 MCG VIAL IVP SCH (10:15)
[2018-04-10] MEDS ORDERED: Naloxone 0.4 MG/ML INJ IVP PRN (10:16)
--- NOTE | 2018-04-10 10:22 | Internal Med History&Physical ---
Date of Encounter: 04/10/18 Time of Encounter: 10:20 Internal Medicine - H&P: HPI Chief complaint: nausea and vomiting Admitted From: Home Plans for Post Hospital Care: Home History of present illness: Ms. Adler is a 52 year old female with a PMH of adrenal insufficiency and GERD surgical history includes hysterectomy, cholecystectomy. Patient presents complaining of epigastric pain, nausea and vomiting which began yesterday. She reports that she has adrenal insufficiency and was given a dose of Solu-Cortef last night. This morning when she attempted to take her medications she began vomiting and subsequently vomited them up. She has intermittently had episodes of vomiting throughout the day. She reports that she has had bradycardia with episodes of vomiting. This is likely a vagal response. Additionally, she notes that 2 weeks ago saw her records manager due to a syncopal event with hypotension. She stated that she was started on Synthroid at that time. Currently, she is endorsing some abdominal discomfort but is not vomiting upon my assessment. She was given Zofran in the ED and nausea somewhat improved. Abdominal pain does not radiate described as a dull continuous ache. She was recently admitted in 02/20 for gastroenteritis and found to have gastritis per EGD. Additionally, during this admission the patient underwent During that admission she was discharged home with Carafate and PPI. She is continue these medications since discharge. She states that her symptoms do not feel the same as last admission. She denies any hematemesis, hematochezia, melena. Additionally, she denies any shortness of breath, chest pain, cough, fevers, chills or diarrhea. She denies any exotic travel, exotic foods, or real contacts. Chemistry panel in the ED did not identify any metabolic derangements. Additionally CBC grossly normal. Patient remains hemodynamically stable and does not appear to be an adrenal crisis at this time. However, given her presentation I believe that her adrenal insufficiency is also contributing. Past Med Surg Social Fam HX - Past Medical History Medical history: other Additional medical history: IBS, hypopituitarism, samson's disease Psychiatric history: depression, PTSD - Past Surgical History Surgical History: hysterectomy, orthopedic, other, other Additional surgical history: 8 back surgeries. three elbow surgeries. rt carpal tunnel. two rt shoulder. total right shoulder reverse. battery replacment for stim - Social History Smoking Status: Never smoker Smokeless Tobacco Status: No Alcohol use: none Drug use: none - Family History Father History Unknown: Yes Living Status: Mother Living Status: Cause of : lung ca Hx Family Cardiac Disorders: Yes Hx Family Respiratory Disorders: No Hx Family Cancer: Yes (lung, pancreas, liver) Hx Family GI Disorders: No Hx Family Genitourinary Disorders: No Hx Family Endocrine Disorder: No Hx Family Musculoskeletal Disorders: No Hx Family Neuromuscular Disorders: No Hx Family Neurologic Disorders: No Hx Family HEENT Disorders: No Hx Family Autoimmune Disorders: No Hx Family Reproductive Disorders: No Hx Family Psychosocial Disorders: No Hx Family Medical Disorders: No Internal Medicine - H&P: Meds Aspirin [Adult Low Dose Aspirin EC] 81 mg PO DAILY 11/18/15 [History] Cyanocobalamin (Vitamin B-12) [Vitamin B12] 1,000 mcg PO DAILY 11/18/15 [History ] Dicyclomine 20 mg PO BID 11/18/15 [History] Hydrocortisone Sod Succ/Pf [Solu-Cortef 100 mg Vial] 100 mg IJ AD PRN 11/18/15 [ History] Hydrocortisone [Cortef] 20 mg PO QAM 11/18/15 [History] Linaclotide [Linzess] 145 mcg PO DAILY PRN 07/06/16 [History] Estradiol [Estrace] 1 mg PO DAILY 05/23/17 [History] Prazosin [Minipress] 1 mg PO HS 05/23/17 [History] Progesterone,Micronized [Progesterone] 200 mg PO QPM 05/23/17 [History] Somatropin [Genotropin] 0.4 mg SQ QPM 05/23/17 [History] Ergocalciferol (VITAMIN D2) [Vitamin D2] 50,000 unit PO QWEEK 01/23/18 [History] Hydrocortisone [Cortef] 10 mg PO QPM 01/23/18 [History] Venlafaxine XR (24 HR) [Effexor XR] 75 mg PO DAILY 01/23/18 [History] lamoTRIgine [Lamictal] 150 mg PO QAM 01/23/18 [History] Levothyroxine [Synthroid] 150 mcg PO DAILY 01/24/18 [History] Quetiapine Fumarate [Seroquel] 300 mg PO HS 01/24/18 [History] Omeprazole 40 mg PO BID #120 tablet.dr 01/31/18 [Rx] Polyethylene Glycol 3350 [MiraLAX] 17 gm PO DAILY PRN #30 powd.pack 01/31/18 [Rx ] Ondansetron ODT [Zofran ODT] 4 mg SL Q8HR PRN #14 tab.rapdis 04/08/18 [Rx] Buspirone HCl [Buspar] 7.5 mg PO BID 04/10/18 [History] Levomilnacipran HCl [Fetzima] 80 mg PO QAM 04/10/18 [History] Liothyronine Sodium [Cytomel] 25 mcg PO BID 04/10/18 [History] 3 Allergy/AdvReac Type Severity Reaction Status Date / Time No Known Allergies Allergy Verified 01/23/18 18:48 All Systems PM: A 10-system review of systems was performed and is negative for pertinent findings except as documented above in the HPI. - Constitutional Constitutional: fatigue, night sweats, weakness - Cardiovascular Cardiovascular ROS IM: irregular heart rhythm (reporting fluctuating heart rhythm from high 40's to low 100's yesterday), palpitations, no chest pain, no diaphoresis, no dyspnea, no lightheadedness, no syncope - Respiratory Respiratory: no cough, no dyspnea, no wheezing, no excessive phlegm production - Gastrointestinal Gastrointestinal: abdominal pain, constipation, nausea, vomiting, no change in bowel habits, no change in stool character, no diarrhea, no dysphagia, no early satiety, no hematemesis, no hematochezia - Genitourinary Genitourinary: no change in urinary stream, no dysuria, no flank pain, no hematuria - Musculoskeletal Musculoskeletal ROS IM: no numbness, no tingling - Integumentary Integumentary IM: no rash, no unusual bruising - Neurological Neurological ROS: no confusion, no convulsions, no focal weakness, no numbness, no tingling, no tremor(s) - Constitutional Vitals: Temp Pulse Resp BP Pulse Ox 98.0 F 84 15 124/80 98 04/10/18 06:26 04/10/18 06:26 04/10/18 06:26 04/10/18 06:26 04/10/18 06:26 General appearance: Present: mild distress, A&O X 3 Exam: . - Head Head exam: Present: atraumatic, normocephalic - Eye Eye exam: Present: PERRL, conjuntiva pink, sclera anicteric Pupils: Present: PERRL - Neck Neck exam general surgery: Present: supple, trachea midline. Absent: lymphadenopathy - Respiratory Respiratory exam: Present: CTAB. Absent: accessory muscle use, rales, respiratory distress, rhonchi, wheezes, tachypnea - Cardiovascular Cardiovascular exam: Present: RRR, +S1, +S2. Absent: bradycardia, diastolic murmur, gallop, irregular rhythm, JVD, rubs, systolic murmur, tachycardia - GI/Abdominal GI/Abdominal exam: Present: normal bowel sounds, soft, tenderness (B/L upper quadrant tenderness; mild), no peritoneal signs. Absent: distended, firm, guarding, hepatomegaly, rebound, splenomegaly - Extremities Exam Extremities exam: Present: normal capillary refill, normal inspection, warm, radial pulses palpable and symmetrical. Absent: calf tenderness, cyanotic, pedal edema, tenderness - Neurological Exam Neurological exam: Present: CN II-XII intact, oriented X3, no focal deficits. Absent: pronater drift, facial droop, speech deficit - Skin Skin exam: Present: dry, intact Internal Med - H&P Results - Labs CBC & Chem 7: 04/09/18 22:31 04/09/18 22:31 - Assessment and plan (1) Acute gastroenteritis Current Visit: No Status: Acute Assessment and plan: Presents with epigastric abdominal pain, mild bilateral upper quadrant abdominal tenderness, nausea and vomiting which began yesterday likely acute gastroenteritis; however, given h/o adrenal insufficiency consider this also as a cause nausea improving at time of my assessment this morning; received zofran in the ED recent GI workup 01/21; CT abdomen at that time shows possible PUD; EGD completed , findings per endoscopy include grade a esophagitis without bleeding, diffuse tenderness information to entire stomach. H pyori negative She was discharged on PPI and Carafate and symptoms improved however, she returns with the same s/sx today continue PPI, carafate, and antiemetics; if no improvement or if hematemesis occurs consider GI consult NPO IVF with h/o adrenal insufficiency change PO steroids to IV; switch to PO when appropriate change PO synthroid to IV; dose decreased to half of oral dose EPCD's for DVT prophylaxis (2) Abdominal pain of unknown etiology Current Visit: No Status: Acute Assessment and plan: See above (3) Elevated LFTs Current Visit: No Status: Acute Assessment and plan: Likely due to dehydration, nausea and vomiting, check daily (4) GERD (gastroesophageal reflux disease) Current Visit: No Status: Acute Assessment and plan: Continue PPI Qualifiers: Esophagitis presence: esophagitis presence not specified Qualified Code(s) : K21.9 - Gastro-esophageal reflux disease without esophagitis (5) Adrenal insufficiency Current Visit: No Status: Chronic Assessment and plan: per hx follows with records manager No metabolic derangements noted on today's labs, repeat labs daily, monitor blood pressure for episodes of hypotension above (6) HTN (hypertension) Current Visit: No Status: Chronic Assessment and plan: per hx BP stable 136/81 monitor closely Qualifiers: Hypertension type: essential hypertension Qualified Code(s): I10 - Essential (primary) hypertension (7) Hypopituitarism Current Visit: No Status: Chronic Assessment and plan: per hx continue HGH; patient to bring in own med (8) Hypothyroidism Current Visit: No Status: Chronic Assessment and plan: see above Qualifiers: Hypothyroidism type: unspecified Qualified Code(s): E03.9 - Hypothyroidism , unspecified (9) Lymphadenopathy, axillary Current Visit: Yes Status: Acute Assessment and plan: approximately 2.5cm x 1 cm soft movable lymphnode in the axilla This was brought to my attention by the patient and confirmed with examination No erythema or pain to palpation, no breast tissue changes to exam -Follow up outpatient for breast exam with SEX THERAPIST - Time Spent With Patient Total time spent is greater than 50% in coordination of care (as documented) at patient's floor/unit and/or counseling patient: less than 15 minutes
[2018-04-10] MEDS: 0.9 % Sodium Chloride 1,000 ML IVC SCH ×2 (12:15→23:43)
[2018-04-10] MEDS: Sucralfate 1 GM TABLET PO SCH ×3 (12:16→21:26)
[2018-04-10] MEDS: Ondansetron 4 MG/2 ML VIAL IVP PRN (12:21)
[2018-04-10] MEDS: lamoTRIgine 100 MG TABLET PO SCH (13:20)
[2018-04-10] MEDS: LEVOMILNACIPRAN HCL 40 MG PO SCH (13:31)
[2018-04-10] MEDS: *HR* Promethazine 25 MG/ML VIAL IVP PRN ×2 (15:52→22:05)
[2018-04-10] MEDS: (Progesterone,Micronized [Progesterone] 200 MG) PO SCH ×2 (17:52→22:06)
[2018-04-10] MEDS: SOMATROPIN SQ SCH ×2 (17:53→22:07)
[2018-04-10] MEDS: Hydrocortisone Sodium Succ 100 MG/2 ML VIAL IVP SCH (18:25)
[2018-04-11 05:35] LABS: Basophils % 0.2 %; Eosinophils # 0.1 K/mcL (0.0-0.6); Eosinophils % 1.8 %; Hematocrit 35.7 % (35.3-44.9); Hemoglobin 11.8 g/dL (11.5-15.4); Immature Granulocytes % 0.2 % (0-4); Lymphocytes # 2.1 K/mcL (0.6-4.6); Lymphocytes % 42.7 %; Mean Corpuscular HGB Conc 33.1 g/dL (31.6-35.5); Mean Corpuscular Hemoglobin 29.8 pg (28.0-33.3); Mean Corpuscular Volume 90.2 fL (83.0-100.0); Monocytes # 0.4 K/mcL (0.0-1.3); Monocytes % 7.2 %; Neutrophils # 2.3 K/mcL (1.6-8.9); Platelet Count 194 K/mcL (140-400); Red Blood Count 3.96 M/mcL (3.82-4.97); Red Cell Distribution Width 13.3 % (11.5-14.5); Segmented Neutrophils % 47.9 %
[2018-04-11 08:08] LABS: Alanine Aminotransferase 29 Units/L (7-52); Albumin 3.5 g/dL (3.5-5.7); Albumin/Globulin Ratio 1.9 (1.1-2.2); Alkaline Phosphatase 81 Units/L (34-104); Aspartate Amino Transferase 21 Units/L (13-39); BUN/Creatinine Ratio 17 (6-26); Bilirubin,Indirect 0.6 mg/dL (0.0-1.2); Bilirubin,Total 0.6 mg/dL (0.3-1.0); Blood Urea Nitrogen 13 mg/dL (6-20); Calcium 8.7 mg/dL (8.6-10.3); Carbon Dioxide 23 mEq/L (23-29); Chloride 109 mEq/L (98-107); Globulin 1.8 g/dL (2.4-3.5); Glucose 83 mg/dL (70-105); Osmolality,Calculated 293 (280-300); Potassium 3.5 mEq/L (3.5-5.1); Sodium 142 mEq/L (136-145); Total Protein 5.3 g/dL (6.4-8.9); eGFR For Non-African Americans > 60 (> 60)
[2018-04-11] MEDS: Hydrocortisone Sodium Succ 100 MG/2 ML VIAL IVP SCH ×2 (08:22→17:32)
[2018-04-11] MEDS: Cyanocobalamin (B-12) 1,000 MCG TABLET PO SCH (08:24)
[2018-04-11] MEDS: Levothyroxine Sodium 100 MCG VIAL IVP SCH (08:24)
[2018-04-11] MEDS: Sucralfate 1 GM TABLET PO SCH ×4 (08:24→21:31)
[2018-04-11] MEDS: lamoTRIgine 100 MG TABLET PO SCH (08:25)
[2018-04-11] MEDS: Cholecalciferol (D-3) 1,000 UNIT TABLET PO SCH (08:25)
[2018-04-11] MEDS: LEVOMILNACIPRAN HCL 40 MG PO SCH (08:26)
[2018-04-11] MEDS: *HR* Promethazine 25 MG/ML VIAL IVP PRN ×3 (08:28→21:31)
[2018-04-11] MEDS: 0.9 % Sodium Chloride 1,000 ML IVC SCH ×2 (08:35→17:40)
[2018-04-11] MEDS ORDERED: lamoTRIgine 100 MG TABLET PO SCH (09:00)
[2018-04-11] MEDS ORDERED: Venlafaxine XR (24 HR) 75 MG CAP.ER.24H PO SCH (09:00)
[2018-04-11] MEDS ORDERED: Cyanocobalamin (B-12) 1,000 MCG TABLET PO SCH (09:00)
[2018-04-11] MEDS ORDERED: Aspirin Enteric Coated 81 MG Tablet PO SCH (09:00)
[2018-04-11] MEDS ORDERED: (Vilazodone Hcl [Viibryd] 40 MG) PO SCH (09:00)
--- NOTE | 2018-04-11 09:56 | Internal Med Progress Note ---
Hospitalist Progress Note - Encounter Date of Encounter: 04/11/18 Time of Encounter: 09:53 - Subjective Interval History: Seen and examined at bedside, no acute changes. Patient continues to endorse some mild nausea but denies any vomiting. Otherwise overall she feels like she is improving. - Exam Vitals: Temp Pulse Resp BP Pulse Ox 97.8 F 86 15 107/57 96 04/11/18 08:21 04/11/18 08:21 04/11/18 08:21 04/11/18 08:21 04/11/18 08:41 Exam: . - Assessment and Plan (1) Acute gastroenteritis Current Visit: No Status: Acute Assessment and Plan: Presented with epigastric pain, nausea vomiting, diagnosis of acute gastroenteritis Received IV fluids and antiemetics and has been improving steadily. Found to have elevated liver function, repeat labs this morning grossly normal Patient remains to dynamically stable without metabolic derangements on chemistry Has had recent imaging workup finding gastritis with no additional acute findings patient negative for H. pylori upon his workup Continue with PPI, Carafate, antiemetics, IV fluid Patient will need to remain inpatient this time as she is continuing to have nausea and there is some concern for vomiting She does have a history of adrenal insufficiency with a very strict regimen requiring oral steroids Additionally, she has hypothyroidism and hypopituitarism requiring hGH and levothyroxine She wanted to continue IV steroids, IV levothyroxine until she can tolerate an oral diet which as of today she is unable to do Continue EPCD's for DVT prophylaxi Daily CBC BMP (2) Abdominal pain of unknown etiology Current Visit: No Status: Acute Assessment and Plan: See above (3) Elevated LFTs Current Visit: No Status: Resolved (4) GERD (gastroesophageal reflux disease) Current Visit: No Status: Acute Assessment and Plan: Continue PPI (5) Adrenal insufficiency Current Visit: No Status: Chronic Assessment and Plan: Oral steroids have been switched to IV to continue with outpatient regimen in the setting of nausea vomiting and gastroenteritis (6) HTN (hypertension) Current Visit: No Status: Chronic Assessment and Plan: Per history Remains hemodynamically stable (7) Hypopituitarism Current Visit: No Status: Chronic Assessment and Plan: per hx continue HGH; patient to bring in own med (8) Hypothyroidism Current Visit: No Status: Chronic Assessment and Plan: Continue IV Synthroid, transition to by mouth and patient tolerating oral intake (9) Lymphadenopathy, axillary Current Visit: Yes Status: Acute Assessment and Plan: approximately 2.5cm x 1 cm soft movable lymphnode in the axilla This was brought to my attention by the patient and confirmed with examination Continues to be without erythema or pain to palpation, no breast tissue changes to exam -Follow up outpatient for breast exam with BOW MA[employer] GIFT WRAPPING - Time Spent with Patient Total time spent is greater than 50% in coordination of care (as documented) at patient's floor/unit and/or counseling patient: less than 15 minutes Plan of Care Discussed with: patient Internal Medicine: Result - Labs CBC & Chem 7: 04/11/18 04:58 04/11/18 04:58 Labs: Short CBC 04/11/18 Range/Units 04:58 WBC 4.9 (4.3-11.1) K/mcL Hgb 11.8 (11.5-15.4) g/dL Hct 35.7 (35.3-44.9) % Plt Count 194 (140-400) K/mcL Neutrophils # 2.3 (1.6-8.9) K/mcL BMP 04/11/18 04:58 Sodium 142 Potassium 3.5 Chloride 109 H Carbon Dioxide 23 BUN 13 Creatinine 0.75 Glucose 83 Calcium 8.7 Liver Function 04/11/18 Range/Units 04:58 Total Bilirubin 0.6 (0.3-1.0) mg/dL Direct Bilirubin 0.0 (0.0-0.2) mg/dL AST 21 (13-39) Units/L ALT 29 (7-52) Units/L Alkaline Phosphatase 81 (34-104) Units/L Albumin 3.5 (3.5-5.7) g/dL Consult Discharge Plan - Plan Referrals: Scarlett Talbert, [Primary Care Provider] - (4) GERD (gastroesophageal reflux disease) Qualifiers: Esophagitis presence: esophagitis presence not specified Qualified Code(s): K21.9 - Gastro-esophageal reflux disease without esophagitis (6) HTN (hypertension) Qualifiers: Hypertension type: essential hypertension Qualified Code(s): I10 - Essential (primary) hypertension (8) Hypothyroidism Qualifiers: Hypothyroidism type: unspecified Qualified Code(s): E03.9 - Hypothyroidism, unspecified
[2018-04-11] MEDS: Ondansetron 4 MG/2 ML VIAL IVP PRN (12:15)
[2018-04-11] MEDS: (Progesterone,Micronized [Progesterone] 200 MG) PO SCH (17:33)
[2018-04-11] MEDS: SOMATROPIN SQ SCH (21:27)
[2018-04-12] MEDS: 0.9 % Sodium Chloride 1,000 ML IVC SCH ×2 (03:44→19:30)
[2018-04-12 05:53] LABS: Basophils % 0.2 %; Eosinophils # 0.1 K/mcL (0.0-0.6); Eosinophils % 1.9 %; Hematocrit 33.9 % (35.3-44.9); Hemoglobin 10.9 g/dL (11.5-15.4); Immature Granulocytes % 0.2 % (0-4); Lymphocytes # 2.2 K/mcL (0.6-4.6); Lymphocytes % 51.9 %; Mean Corpuscular HGB Conc 32.2 g/dL (31.6-35.5); Mean Corpuscular Hemoglobin 28.6 pg (28.0-33.3); Monocytes # 0.3 K/mcL (0.0-1.3); Monocytes % 7.9 %; Neutrophils # 1.6 K/mcL (1.6-8.9); Platelet Count 188 K/mcL (140-400); Red Blood Count 3.81 M/mcL (3.82-4.97); Red Cell Distribution Width 13.3 % (11.5-14.5); Segmented Neutrophils % 37.9 %
[2018-04-12 06:18] LABS: BUN/Creatinine Ratio 9 (6-26); Blood Urea Nitrogen 7 mg/dL (6-20); Calcium 8.8 mg/dL (8.6-10.3); Carbon Dioxide 27 mEq/L (23-29); Chloride 109 mEq/L (98-107); Glucose 104 mg/dL (70-105); Osmolality,Calculated 292 (280-300); Potassium 3.4 mEq/L (3.5-5.1); Sodium 142 mEq/L (136-145); eGFR For Non-African Americans > 60 (> 60)
[2018-04-12] MEDS: Cholecalciferol (D-3) 1,000 UNIT TABLET PO SCH (08:29)
[2018-04-12] MEDS: LEVOMILNACIPRAN HCL 40 MG PO SCH (08:29)
[2018-04-12] MEDS: lamoTRIgine 100 MG TABLET PO SCH (08:30)
[2018-04-12] MEDS: Cyanocobalamin (B-12) 1,000 MCG TABLET PO SCH (08:31)
[2018-04-12] MEDS: Hydrocortisone Sodium Succ 100 MG/2 ML VIAL IVP SCH ×2 (08:31→17:47)
[2018-04-12] MEDS: Sucralfate 1 GM TABLET PO SCH ×4 (08:31→21:39)
[2018-04-12] MEDS: Levothyroxine Sodium 100 MCG VIAL IVP SCH (08:32)
[2018-04-12] MEDS: Ondansetron 4 MG/2 ML VIAL IVP PRN (11:23)
[2018-04-12] MEDS: *HR* Promethazine 25 MG/ML VIAL IVP PRN ×2 (15:19→21:41)
--- NOTE | 2018-04-12 16:00 | Internal Med Progress Note ---
Hospitalist Progress Note - Encounter Date of Encounter: 04/12/18 Time of Encounter: 15:57 - Subjective Interval History: Seen and examined at bedside, no acute changes. Patient continues to endorse some mild nausea and continues to deny vomiting. Unble to tolerate a diet as of yet. Otherwise overall she feels like she is improving. - Exam Vitals: Temp Pulse Resp BP Pulse Ox 98.0 F 85 16 136/85 93 04/12/18 15:10 04/12/18 15:10 04/12/18 15:10 04/12/18 15:10 04/12/18 15:10 Exam: PHYSICAL EXAMINATION: GENERAL: The patient is a well-developed, well-nourished female in no apparent distress, she is alert and oriented 3 HEENT: Head is normocephalic and atraumatic. Extraocular muscles are intact. Pupils are equal, round, and reactive to light and accommodation. NECK: Supple. No carotid bruits. No lymphadenopathy or thyromegaly. LUNGS: Clear to auscultation. HEART: Regular rate and rhythm, S1, S2 without murmur. ABDOMEN: Soft, and nondistended. Positive bowel sounds. No hepatosplenomegaly was noted. Mild epigastric tenderness EXTREMITIES: Without any cyanosis, clubbing, rash, lesions or edema. NEUROLOGIC: Cranial nerves II through XII are grossly intact. SKIN: No ulceration or induration present. - Assessment and Plan (1) Acute gastroenteritis Current Visit: No Status: Acute Assessment and Plan: Presented with epigastric pain, nausea vomiting, diagnosis of acute gastroenteritis Received IV fluids and antiemetics and has been improving steadily; Found to have elevated liver function, repeat labs this morning grossly normal Patient remains to dynamically stable without metabolic derangements on chemistry Has had recent imaging workup finding gastritis with no additional acute findings patient negative for H. pylori upon his workup Continue with PPI, Carafate, antiemetics, IV fluid Patient will need to remain inpatient this time as she is continuing to have nausea and there is some concern for vomiting She does have a history of adrenal insufficiency with a very strict regimen requiring oral steroids Additionally, she has hypothyroidism and hypopituitarism requiring hGH and levothyroxine She wanted to continue IV steroids, IV levothyroxine until she can tolerate an oral diet which as of today she is unable to do Continue EPCD's for DVT prophylaxis Daily CBC BMP 04/12-still unable to tolerate a full meal due to nausea with eating. However, patient reports she feels like she is improving daily. I believe the patient's gastroparesis is also contributing to nausea. Discussed low-residue diet. Antiemetics, IV fluids, PPI, Carafate. She has been instructed to attempt to increase her meal intake. Continue with plan as stated above. The patient continues to improve overnight is able to tolerate dinner and breakfast consider discharge (2) Abdominal pain of unknown etiology Current Visit: No Status: Acute Assessment and Plan: above (3) Elevated LFTs Current Visit: No Status: Resolved Assessment and Plan: Resolved (4) GERD (gastroesophageal reflux disease) Current Visit: No Status: Acute Assessment and Plan: Continue PPI (5) Adrenal insufficiency Current Visit: No Status: Chronic Assessment and Plan: Continue IV glucocorticoids for now, consider changing to by mouth tomorrow as long as patient tolerating oral intake (6) HTN (hypertension) Current Visit: No Status: Chronic Assessment and Plan: Remains dynamically stable continue to monitor (7) Hypopituitarism Current Visit: No Status: Chronic Assessment and Plan: Continue H GH injections per patient home meds (8) Hypothyroidism Current Visit: No Status: Chronic Assessment and Plan: Continue with IV Synthroid, changed to by mouth and patient tolerating oral intake (9) Lymphadenopathy, axillary Current Visit: Yes Status: Acute Assessment and Plan: approximately 2.5cm x 1 cm soft movable lymphnode in the axilla This was brought to my attention by the patient and confirmed with examination Continues to be without erythema or pain to palpation, no breast tissue changes to exam -Follow up outpatient for breast exam with 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74 Glucose 104 Calcium 8.8 Consult Discharge Plan - Plan Referrals: Scarlett Talbert DO [Primary Care Provider] - (Requested a follow up appointment in 7-10 days. ) (4) GERD (gastroesophageal reflux disease) Qualifiers: Esophagitis presence: esophagitis presence not specified Qualified Code(s): K21.9 - Gastro-esophageal reflux disease without esophagitis (6) HTN (hypertension) Qualifiers: Hypertension type: essential hypertension Qualified Code(s): I10 - Essential (primary) hypertension (8) Hypothyroidism Qualifiers: Hypothyroidism type: unspecified Qualified Code(s): E03.9 - Hypothyroidism, unspecified
[2018-04-12] MEDS: (Progesterone,Micronized [Progesterone] 200 MG) PO SCH (17:47)
[2018-04-12] MEDS: SOMATROPIN SQ SCH (21:39)
[2018-04-13 04:32] LABS: Basophils % 0.4 %; Eosinophils % 0.8 %; Hematocrit 36.2 % (35.3-44.9); Hemoglobin 12.3 g/dL (11.5-15.4); Immature Granulocytes % 0.4 % (0-4); Lymphocytes # 2.1 K/mcL (0.6-4.6); Lymphocytes % 40.4 %; Mean Corpuscular Hemoglobin 29.9 pg (28.0-33.3); Mean Corpuscular Volume 88.1 fL (83.0-100.0); Mean Platelet Volume 10.1 fL (9.4-12.4); Monocytes # 0.5 K/mcL (0.0-1.3); Monocytes % 8.9 %; Neutrophils # 2.5 K/mcL (1.6-8.9); Platelet Count 204 K/mcL (140-400); Red Blood Count 4.11 M/mcL (3.82-4.97); Segmented Neutrophils % 49.1 %
[2018-04-13 04:46] LABS: BUN/Creatinine Ratio 8 (6-26); Blood Urea Nitrogen 6 mg/dL (6-20); Calcium 9.2 mg/dL (8.6-10.3); Carbon Dioxide 28 mEq/L (23-29); Chloride 107 mEq/L (98-107); Glucose 107 mg/dL (70-105); Osmolality,Calculated 290 (280-300); Potassium 3.5 mEq/L (3.5-5.1); Sodium 141 mEq/L (136-145); eGFR For Non-African Americans > 60 (> 60)
[2018-04-13 07:43] VITALS: BP 106/66
[2018-04-13] MEDS: Sucralfate 1 GM TABLET PO SCH ×2 (07:50→11:17)
[2018-04-13] MEDS: Cyanocobalamin (B-12) 1,000 MCG TABLET PO SCH (07:50)
[2018-04-13] MEDS: Cholecalciferol (D-3) 1,000 UNIT TABLET PO SCH (07:51)
[2018-04-13] MEDS: Levothyroxine Sodium 100 MCG VIAL IVP SCH (07:51)
[2018-04-13] MEDS: lamoTRIgine 100 MG TABLET PO SCH (07:51)
[2018-04-13] MEDS: LEVOMILNACIPRAN HCL 40 MG PO SCH (07:52)
[2018-04-13] MEDS: Hydrocortisone Sodium Succ 100 MG/2 ML VIAL IVP SCH (07:52)
[2018-04-13] MEDS: *HR* Promethazine 25 MG/ML VIAL IVP PRN (08:06)
--- NOTE | 2018-04-13 11:10 | Discharge Summary ---
- NOTES TO OUTPATIENT PROVIDER Notes to Outpatient Provider: Patient found to have a 5 cm x 2.5 cm left axillary lymph node on admission. This will need outpatient follow-up. Please ensure patient has follow-up for breast exam. Date of Encounter: 04/13/18 Time of Encounter: 11:01 - Discharge Diagnosis (1) Acute gastroenteritis Priority: Primary Status: Acute (2) Abdominal pain of unknown etiology Priority: Secondary Status: Acute (3) Elevated LFTs Priority: Secondary Status: Resolved (4) GERD (gastroesophageal reflux disease) Priority: Secondary Status: Acute Qualifiers: Esophagitis presence: esophagitis presence not specified Qualified Code(s) : K21.9 - Gastro-esophageal reflux disease without esophagitis (5) Adrenal insufficiency Priority: Secondary Status: Chronic (6) HTN (hypertension) Priority: Secondary Status: Chronic Qualifiers: Hypertension type: essential hypertension Qualified Code(s): I10 - Essential (primary) hypertension (7) Hypopituitarism Priority: Secondary Status: Chronic (8) Hypothyroidism Priority: Secondary Status: Chronic Qualifiers: Hypothyroidism type: unspecified Qualified Code(s): E03.9 - Hypothyroidism , unspecified (9) Lymphadenopathy, axillary Priority: Secondary Status: Acute Hospital course: Ms. Adler is a 52 year old female with PMH of adrenal insufficiency, hypopituitarism, hypothyroidism, and GERD. She presents with complaints of epigastric pain, nausea and vomiting. Found to have viral gastroenteritis. Was treated with antiemetics and IV fluids. Patient continued to improve, uneventful hospital course. No metabolic derangements or hemodynamic compromise throughout stay. Continuing to improve on day of discharge and tolerating a diet. We will continue all home medications as prescribed by chief sales officer and all additional home medication. Discharge discussed with: patient, nurse - Time Spent with Patient Total time spent providing and/or coordinating discharge services: Less than 30 minutes - Discharge Medications Home Medications: Aspirin [Adult Low Dose Aspirin EC] 81 mg PO DAILY 11/18/15 [History] Cyanocobalamin (Vitamin B-12) [Vitamin B12] 1,000 mcg PO DAILY 11/18/15 [History ] Dicyclomine 20 mg PO BID 11/18/15 [History] Hydrocortisone Sod Succ/Pf [Solu-Cortef 100 mg Vial] 100 mg IJ AD PRN 11/18/15 [ History] Hydrocortisone [Cortef] 20 mg PO QAM 11/18/15 [History] Linaclotide [Linzess] 145 mcg PO DAILY PRN 07/06/16 [History] Estradiol [Estrace] 1 mg PO DAILY 05/23/17 [History] Prazosin [Minipress] 1 mg PO HS 05/23/17 [History] Progesterone,Micronized [Progesterone] 200 mg PO QPM 05/23/17 [History] Somatropin [Genotropin] 0.4 mg SQ QPM 05/23/17 [History] Ergocalciferol (VITAMIN D2) [Vitamin D2] 50,000 unit PO QWEEK 01/23/18 [History] Hydrocortisone [Cortef] 10 mg PO QPM 01/23/18 [History] Venlafaxine XR (24 HR) [Effexor XR] 75 mg PO DAILY 01/23/18 [History] lamoTRIgine [Lamictal] 150 mg PO QAM 01/23/18 [History] Levothyroxine [Synthroid] 150 mcg PO DAILY 01/24/18 [History] Quetiapine Fumarate [Seroquel] 300 mg PO HS 01/24/18 [History] Omeprazole 40 mg PO BID #120 tablet.dr 01/31/18 [Rx] Polyethylene Glycol 3350 [MiraLAX] 17 gm PO DAILY PRN #30 powd.pack 01/31/18 [Rx ] Ondansetron ODT [Zofran ODT] 4 mg SL Q8HR PRN #14 tab.rapdis 04/08/18 [Rx] Buspirone HCl [Buspar] 7.5 mg PO BID 04/10/18 [History] Levomilnacipran HCl [Fetzima] 80 mg PO QAM 04/10/18 [History] Liothyronine Sodium [Cytomel] 25 mcg PO BID 04/10/18 [History] Allergies/Adverse Reactions: 3 Allergy/AdvReac Type Severity Reaction Status Date / Time No Known Allergies Allergy Verified 01/23/18 18:48 Date of admission: 04/12/18 16:06 Primary care physician: Scarlett Talbert DO Discharging clinician: Anish Torres Anticipated date of discharge: 04/13/18 - Constitutional Vitals: Temp Pulse Resp BP Pulse Ox 98.0 F 75 16 106/66 95 04/13/18 07:42 04/13/18 07:42 04/13/18 07:42 04/13/18 07:42 04/13/18 07:42 General appearance: Present: mild distress, A&O X 3 Exam: PHYSICAL EXAMINATION: GENERAL: The patient is a well-developed, well-nourished female in no apparent distress, she is alert and oriented 3 HEENT: Head is normocephalic and atraumatic. Extraocular muscles are intact. Pupils are equal, round, and reactive to light and accommodation. NECK: Supple. No carotid bruits. No lymphadenopathy or thyromegaly. LUNGS: Clear to auscultation. HEART: Regular rate and rhythm, S1, S2 without murmur. ABDOMEN: Soft, and nondistended. NABS. No hepatosplenomegaly was noted. Mild epigastric tenderness EXTREMITIES: Without any cyanosis, clubbing, rash, lesions or edema. NEUROLOGIC: Cranial nerves II through XII are grossly intact. SKIN: No ulceration or induration present. - Patient Status Disposition: Home, Self-Care Condition: Good Overall status at discharge: patient is progressing back to baseline - Discharge Instructions Instructions: Gastroenteritis (DC) Follow Up With: Scarlett Talbert DO [Primary Care Provider] - (Requested a follow up appointment in 7-10 days. ) - Diet and Activity Activity: increase activity as tolerated, resume usual activities as tolerated Diet: advance to your usual diet (As tolerated) - VTE Documentation of Mechanical Device: Intermittent pneumatic compression device
--- NOTE | 2018-04-13 12:37 | Electrocardiograph Report ---
[place] [id number] Test Date: 2018-04-09 Pat Name: Kortney Adler Department: [id number] Room: 3B Gender: F Blind Aide: : 1965 Requested By: Jose M Boland Order Number: [id number] Reading MD: Lisbeth Tony Measurements Intervals [place] Rate: 85 P: 65 NM: 175 QRS: 75 QRSD: 87 T: 59 QT: 370 QTc: 440 Interpretive Statements Normal sinus rhythm Electronically Signed On 04-13-2018 12:35:46 EDT by Lisbeth Tony
== END 2018-04-13 12:20 | disposition home or self-care (01) | DRG 392 ==
LOC: 3BNU 20:35 → EMEROOARM 20:35 → 3BNU 04-10 05:11
PROVIDERS: ADMIT Pediatrics; ATTEND Pediatrics

== ENCOUNTER 2018-10-20 15:19 | Observation (INO) ==
[2018-10-20] MEDS ORDERED: Ondansetron 4 MG/2 ML VIAL IVP ONE ×2 (15:43→18:16)
[2018-10-20] MEDS ORDERED: 0.9 % Sodium Chloride 1,000 ML IVC ONE (15:43)
[2018-10-20] MEDS ORDERED: *HR* Morphine 2 MG/ML SYRINGE IVP ONE ×2 (15:43→18:16)
--- NOTE | 2018-10-20 15:45 | Emergency Department Note ---
Disposition Clinical Impression: Intractable pain Abdominal pain Qualifiers: Abdominal location: left lower quadrant Qualified Code(s): R10.32 - Left lower quadrant pain Nausea and vomiting Qualifiers: Vomiting type: unspecified Vomiting Intractability: intractable Qualified Co de(s): R11.2 - Nausea with vomiting, unspecified Disposition: Admitted As Inpatient Condition: Fair Referrals: Scarlett Talbert DO [Primary Care Provider] - Forms: ED Satisfaction Letter, Work/School Release Time of Disposition: 19:52 Abdominal Pain HPI - General Chief Complaint: ED Abdominal Pain Stated Complaint: Abd PAIN Time Seen by Provider: 10/20/18 15:28 Source: patient Mode of arrival: ambulatory Limitations: no limitations Nursing Notes Reviewed: Yes Vital Signs Reviewed: Yes - History of Present Illness HPI Narrative: Patient presents emergency room with persistent abdominal pain since the end of August. Patient has had multiple evaluations completed including a colonoscopy that was done 10 days ago. Patient is describing stable pain but progressively worse at this time. Denies any other symptoms or complaints. She does want to be reevaluated considering her discomfort and presentation. Pt Subjective Complaint: abdominal pain Onset (ago): month(s) Consistency: constant Location: LLQ Pain Severity: moderate Pain Scale: 8 Quality: cramping, stabbing Radiation: none Migration to: no migration Improves with: nothing Worsens with: other Context: history of similar episodes Associated symptoms: Reports: nausea, diarrhea. Denies: vomiting, constipation Treatments prior to arrival: none - Related Data Home Medications Medication Instructions Recorded Confirmed Aspirin [Adult Low Dose Aspirin EC] 81 mg PO DAILY 11/18/15 04/10/18 Cyanocobalamin (Vitamin B-12) 1,000 mcg PO DAILY 11/18/15 04/10/18 [Vitamin B12] Dicyclomine 20 mg PO BID 11/18/15 04/10/18 Hydrocortisone Sod Succ/Pf 100 mg IJ AD PRN 11/18/15 04/10/18 [Solu-Cortef 100 mg Vial] Hydrocortisone [Cortef] 20 mg PO QAM 11/18/15 04/10/18 Linaclotide [Linzess] 145 mcg PO DAILY PRN 07/06/16 04/10/18 Estradiol [Estrace] 1 mg PO DAILY 05/23/17 04/10/18 Prazosin [Minipress] 1 mg PO HS 05/23/17 04/10/18 Progesterone,Micronized 200 mg PO QPM 05/23/17 04/10/18 [Progesterone] Somatropin [Genotropin] 0.4 mg SQ QPM 05/23/17 04/10/18 Ergocalciferol (VITAMIN D2) 50,000 unit PO QWEEK 01/23/18 04/10/18 [Vitamin D2] Hydrocortisone [Cortef] 10 mg PO QPM 01/23/18 04/10/18 Venlafaxine XR (24 HR) [Effexor XR] 75 mg PO DAILY 01/23/18 04/10/18 lamoTRIgine [Lamictal] 150 mg PO QAM 01/23/18 04/10/18 Levothyroxine [Synthroid] 150 mcg PO DAILY 01/24/18 04/10/18 Quetiapine Fumarate [Seroquel] 300 mg PO HS 01/24/18 04/10/18 Buspirone HCl [Buspar] 7.5 mg PO BID 04/10/18 04/10/18 Levomilnacipran HCl [Fetzima] 80 mg PO QAM 04/10/18 04/10/18 Liothyronine Sodium [Cytomel] 25 mcg PO BID 04/10/18 04/10/18 Previous Rx's Medication Instructions Recorded Omeprazole 40 mg PO BID #120 tablet. 01/31/18 Polyethylene Glycol 3350 [MiraLAX] 17 gm PO DAILY PRN #30 powd.pack 01/31/18 Ondansetron ODT [Zofran ODT] 4 mg SL Q8HR PRN #14 tab.travis 04/08/18 Ondansetron ODT [Zofran ODT] 4 mg SL Q8HR 30 Days #90 tab.rapdis 04/13/18 Promethazine [Phenergan] 12.5 mg PO Q8HR 14 Days #35 tablet 04/13/18 Allergies Allergy/AdvReac Type Severity Reaction Status Date / Time fentanyl Allergy Hives Verified 07/17/18 12:47 All systems ED: reviewed and negative except as stated. Review of Systems: As Per HPI Constitutional: Reports: chills. Denies: fever, weakness ENT ED: Denies: ear pain, throat pain Cardiovascular: Denies: chest pain, palpitations, dyspnea on exertion, orthopnea, edema Respiratory: Denies: cough, dyspnea, wheezes Gastrointestinal: Reports: abdominal pain, nausea, diarrhea. 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 Absent: miosis, mydriasis - ENT ENT exam: normal exam, normal oropharynx, mucous membranes moist - Neck Neck exam: Present: normal inspection, full ROM, trachea midline - Chest Chest inspection: Present: normal inspection, symmetric chest wall rise. Absent: tenderness - Respiratory Respiratory exam: Present: normal lung sounds bilaterally. Absent: respiratory distress, accessory muscle use - Cardiovascular Cardiovascular exam: Present: regular rate, normal rhythm, normal heart sounds - Abdominal Exam Abdominal exam: Present: soft, tenderness, normal bowel sounds. Absent: distention, guarding, rebound, rigidity, trauma, Benton's sign, Rovsing's sign, tenderness at [place]Bur[place]'s Point, pulsatile mass, hernia - Extremities Exam Extremities exam: Present: normal inspection, full ROM, normal capillary refill. Absent: tenderness - Back Exam Back exam: Present: normal inspection, full ROM. Absent: tenderness, CVA tenderness (R), CVA tenderness (L) - Neurological Exam Neurological exam: Present: alert, oriented X3, CN II-XII intact, normal gait - Skin Skin exam: Present: warm, dry, intact, normal color Course Course Narrative: Patient seen and examined at the time of arrival. See history of present illness. 53-year-old female presents for persistently worsening left lower quadrant abdominal pain. Patient is a history of chronic abdominal pain since the end of August. She has not had any resolution of the symptoms but over the last 24 hours she feels that the symptoms have progressively become worse. Patient denies any chest pain or shortness of breath. Has had intermittent nausea without vomiting. Denies any blood in her stool but has had diarrhea. Currently she denying fevers. She has had intermittent chills. Denies any headache or vision change. She has not fallen or injured herself. She has not taken any new medications and has not started any medications at this time. Patient denies any specific history of smoking alcohol abuse or substance abuse at this point. Vital signs are stable. Patient is alert she is oriented. She is sitting in the bed. She does appear to be mildly uncomfortable. Oropharynx is patent. Trachea is midline. No stridor no trismus. Heart is regular lungs are clear. Abdomen is soft with tenderness noted in the left upper quadrant but worsens as you go down to the left lower quadrant of the abdomen. She has no guarding no rigidity no peritoneal symptoms. Patient does have Brain's disease. Patient does not have any renal cysts or abnormality. Extremities are normal. Patient denies any vaginal discharge or bleeding. She has had a partial hysterectomy. They removed her uterus but left her ovaries. Patient has no other specific new complaints or issues outside of worsening pain from a chronic presentation. Labs including CBC chemistry urinalysis liver function testing and lipase will be collected at this time. Troponin will also be added on along with EKG. Patient is otherwise resting comfortably. CT imaging the abdomen will be resulted. Patient did have a colonoscopy 10 days ago and it did confirm diverticulum in the lower abdomen and uterus. We will continue monitor here until treatment course has been completed. Symptomatically control along with stress dose steroids will be provided - Reevaluation(s) Reevaluation #1: Patient feels slightly better. The pain is starting to come back. This all ap pears to be chronic in nature. No acute source noted at this time. Cardiac and pulmonary evaluation unremarkable. Levsin has been ordered at this time to help with symptomatic control and disposition will be determined. Time: 17:35 Reevaluation #2: Patient has not had any significant controlled nausea and the vomiting as well as abdominal pain.. Shortly release with the pain medication as been provided by IV but has not been controlled. CT scan does not show any acute abnormality that is surgical in nature. The biopsy that was completed during the colonoscopy will be reviewed. Because the patient's intractable nausea vomiting and pain along with her inability to take her steroids on for her [place]'s disease, the patient will be admitted to the hospital for continued symptom control and observation. Patient is otherwise hemodynamically stable but having persistent pain with nausea and vomiting. Hospitalist has been paged at this time for admission Dr. Taylor reviewed the case and had no other concerns or issues. Patient will be monitored in the ED until the admission process is completed. Third dose of pain medication nausea medication has been provided to the patient here at this time. Patient is otherwise showing no acute signs of infectious etiology or surgical abdomen. Time: 19:50 Vital Signs Temperature 97.5 F L 10/20/18 15:27 Pulse Rate 87 10/20/18 15:27 Respiratory Rate 15 10/20/18 15:27 Blood Pressure 147/87 10/20/18 15:27 O2 Sat by Pulse Oximetry 97 10/20/18 15:27 Temperature 97.5 F L 10/20/18 15:32 Pulse Rate 87 10/20/18 15:32 Respiratory Rate 15 10/20/18 15:32 Blood Pressure 147/87 10/20/18 15:32 O2 Sat by Pulse Oximetry 97 10/20/18 15:32 Oxygen Delivery Oxygen Delivery Room Air Abdominal Pain - MDM Narrative Medical decision making narrative: Abdominal pain, nausea, diarrhea, intractable nausea vomiting - Medical Records Medical records reviewed: Yes I reviewed the patient's medical records. - Lab Data Lab results reviewed: Yes I reviewed the patient's lab results. Result diagrams: 10/20/18 15:50 10/20/18 15:50 Lab Results 10/20/18 10/20/18 10/20/18 Range/Units 15:35 15:50 15:50 WBC 6.8 (4.3-11.1) K/mcL RBC 4.91 (3.82-4.97) M/mcL Hgb 13.4 (11.5-15.4) g/dL Hct 40.6 (35.3-44.9) % MCV 82.7 L (83.0-100.0) fL MCH 27.3 L (28.0-33.3) pg MCHC 33.0 (31.6-35.5) g/dL RDW 13.2 (11.5-14.5) % Plt Count 256 (140-400) K/mcL MPV 10.0 (9.4-12.4) fL Immature Gran % 0.3 (0-4) % Seg Neutrophils % 72.3 % Lymphocytes % 21.3 % Monocytes % 5.9 % Eosinophils % 0.1 % Basophils % 0.1 % Neutrophils # 4.9 (1.6-8.9) K/mcL Lymphocytes # 1.4 (0.6-4.6) K/mcL Monocytes # 0.4 (0.0-1.3) K/mcL Eosinophils # 0.0 (0.0-0.6) K/mcL Basophils # 0.0 (0.0-0.2) K/mcL Sodium 140 (136-145) mEq/L Potassium 3.5 (3.5-5.1) mEq/L Chloride 106 (98-107) mEq/L Carbon Dioxide 24 (23-29) mEq/L BUN 9 (6-20) mg/dL Creatinine 0.72 (0.60-1.20) mg/dL Est GFR ( Amer) > 60 (> 60) Est GFR (Non-Af Amer) > 60 (> 60) BUN/Creatinine Ratio 13 (6-26) Glucose 109 H (70-105) mg/dL Calculated Osmolality 289 (280-300) Lactic Acid (0.5-2.2) mmol/L Calcium 9.8 (8.6-10.3) mg/dL Total Bilirubin 0.3 (0.3-1.0) mg/dL Direct Bilirubin 0.0 (0.0-0.2) mg/dL Indirect Bilirubin 0.3 (0.0-1.2) mg/dL AST 11 L (13-39) Units/L ALT 13 (7-52) Units/L Alkaline Phosphatase 104 (34-104) Units/L Troponin I < 0.03 (< 0.04) ng/mL Serum Total Protein 7.2 (6.4-8.9) g/dL Albumin 4.5 (3.5-5.7) g/dL Globulin 2.7 (2.4-3.5) g/dL Albumin/Globulin Ratio 1.7 (1.1-2.2) Lipase 30 (11-82) Units/L Urine Color Yellow (Yellow) Urine Clarity Clear (Clear) Urine pH 6.0 (5.0-8.0) pH Units Ur Specific [place] 1.014 (1.010-1.025) Urine Protein Negative (Neg-Trace) mg/dL Urine Glucose (UA) Normal (Normal) mg/dL Urine Ketones Negative (Negative) mg/dL Urine Blood Negative (Negative) Urine Nitrite Negative (Negative) Urine Bilirubin Negative (Negative) Urine Urobilinogen Normal (Normal) mg/dL Ur Leukocyte Esterase Negative (Negative) Ur Culture Indicated? NO (NO) 10/20/18 Range/Units 15:50 WBC (4.3-11.1) K/mcL RBC (3.82-4.97) M/mcL Hgb (11.5-15.4) g/dL Hct (35.3-44.9) % MCV (83.0-100.0) fL MCH (28.0-33.3) pg MCHC (31.6-35.5) g/dL RDW (11.5-14.5) % Plt Count (140-400) K/mcL MPV (9.4-12.4) fL Immature Gran % (0-4) % Seg Neutrophils % % Lymphocytes % % Monocytes % % Eosinophils % % Basophils % % Neutrophils # (1.6-8.9) K/mcL Lymphocytes # (0.6-4.6) K/mcL Monocytes # (0.0-1.3) K/mcL Eosinophils # (0.0-0.6) K/mcL Basophils # (0.0-0.2) K/mcL Sodium (136-145) mEq/L Potassium (3.5-5.1) mEq/L Chloride (98-107) mEq/L Carbon Dioxide (23-29) mEq/L BUN (6-20) mg/dL Creatinine (0.60-1.20) mg/dL Est GFR ( Amer) (> 60) Est GFR (Non-Af Amer) (> 60) BUN/Creatinine Ratio (6-26) Glucose (70-105) mg/dL Calculated Osmolality (280-300) Lactic Acid 0.7 (0.5-2.2) mmol/L Calcium (8.6-10.3) mg/dL Total Bilirubin (0.3-1.0) mg/dL Direct Bilirubin (0.0-0.2) mg/dL Indirect Bilirubin (0.0-1.2) mg/dL AST (13-39) Units/L ALT (7-52) Units/L Alkaline Phosphatase (34-104) Units/L Troponin I (< 0.04) ng/mL Serum Total Protein (6.4-8.9) g/dL Albumin (3.5-5.7) g/dL Globulin (2.4-3.5) g/dL Albumin/Globulin Ratio (1.1-2.2) Lipase (11-82) Units/L Urine Color (Yellow) Urine Clarity (Clear) Urine pH (5.0-8.0) pH Units Ur Specific [place] (1.010-1.025) Urine Protein (Neg-Trace) mg/dL Urine Glucose (UA) (Normal) mg/dL Urine Ketones (Negative) mg/dL Urine Blood (Negative) Urine Nitrite (Negative) Urine Bilirubin (Negative) Urine Urobilinogen (Normal) mg/dL Ur Leukocyte Esterase (Negative) Ur Culture Indicated? (NO) - Radiology Data Radiology results reviewed: Yes I reviewed the patient's radiology results. CT imaging of the abdomen does not show any acute pathology at this time. Nothing to account for the patient's pain and symptoms here today. - EKG Data EKG attestation: Yes I reviewed and interpreted this EKG. EKG results narrative: EKG shows sinus rhythm. Heart rate of 78. [place] interval 155. Ureters duration 101. QTC of 433. [place] is normal. No acute signs of ST segment elevation or myocardial infarction. No acute signs of WPW or Brugada syndrome. EKG is compared to previous on 04/09/18 with no acute morphology changes or abnormality.
[2018-10-20 16:01] LABS: Basophils % 0.1 %; Eosinophils % 0.1 %; Hematocrit 40.6 % (35.3-44.9); Hemoglobin 13.4 g/dL (11.5-15.4); Immature Granulocytes % 0.3 % (0-4); Lymphocytes # 1.4 K/mcL (0.6-4.6); Lymphocytes % 21.3 %; Mean Corpuscular Hemoglobin 27.3 pg (28.0-33.3); Mean Corpuscular Volume 82.7 fL (83.0-100.0); Monocytes # 0.4 K/mcL (0.0-1.3); Monocytes % 5.9 %; Neutrophils # 4.9 K/mcL (1.6-8.9); Platelet Count 256 K/mcL (140-400); Red Blood Count 4.91 M/mcL (3.82-4.97); Red Cell Distribution Width 13.2 % (11.5-14.5); Segmented Neutrophils % 72.3 %
[2018-10-20] MEDS ORDERED: Hydrocortisone Sodium Succ 100 MG/2 ML VIAL IVP ONE (16:04)
[2018-10-20 16:13] LABS: Bilirubin,Urine Negative (Negative); Blood,Urine Negative (Negative); Clarity,Urine Clear (Clear); Color,Urine Yellow (Yellow); Glucose,Urine (UA) Normal (Normal); Ketones,Urine Negative (Negative); Leukocyte Esterase,Urine Negative (Negative); Nitrite,Urine Negative (Negative); Protein,Urine Negative (Neg-Trace); Specific Gravity,Urine 1.014 (1.010-1.025); Urobilinogen,Urine Normal (Normal)
[2018-10-20 16:32] LABS: Alanine Aminotransferase 13 Units/L (7-52); Albumin 4.5 g/dL (3.5-5.7); Albumin/Globulin Ratio 1.7 (1.1-2.2); Alkaline Phosphatase 104 Units/L (34-104); Aspartate Amino Transferase 11 Units/L (13-39); BUN/Creatinine Ratio 13 (6-26); Bilirubin,Indirect 0.3 mg/dL (0.0-1.2); Bilirubin,Total 0.3 mg/dL (0.3-1.0); Blood Urea Nitrogen 9 mg/dL (6-20); Calcium 9.8 mg/dL (8.6-10.3); Carbon Dioxide 24 mEq/L (23-29); Chloride 106 mEq/L (98-107); Globulin 2.7 g/dL (2.4-3.5); Glucose 109 mg/dL (70-105); Lipase 30 Units/L (11-82); Osmolality,Calculated 289 (280-300); Potassium 3.5 mEq/L (3.5-5.1); Sodium 140 mEq/L (136-145); Total Protein 7.2 g/dL (6.4-8.9); Troponin I < 0.03 ng/mL (< 0.04); eGFR For Non-African Americans > 60 (> 60)
[2018-10-20] MEDS ORDERED: Hyoscyamine 0.5 MG/ML MLS IVP ONE (17:05)
[2018-10-20] MEDS ORDERED: *HR* HYDROcodone/Acet 5/325 mg TABLET PO ONE (19:03)
[2018-10-20] MEDS ORDERED: *HR* HYDROmorphone (PF) 1 MG/ML SYRINGE IVP ONE (19:49)
[2018-10-20] MEDS ORDERED: Naloxone 0.4 MG/ML INJ IVP PRN (20:23)
--- NOTE | 2018-10-20 20:30 | Internal Med History&Physical ---
Date of Encounter: 10/20/18 Time of Encounter: 20:28 Internal Medicine - H&P: HPI Chief complaint: Abdominal pain Admitted From: Emergency Dept Plans for Post Hospital Care: Home History of present illness: Ms. Adler is a 53 year old female with history of [place]'s disease, chronic abdominal pain presents with left-sided abdominal pain. Patient states that she is had this abdominal pain consistently for the last several months however over the last several days it is acutely worsened. She reports associated nausea and vomited 4 days ago after a large meal but has no other vomiting since. She reports diarrhea over the last several days and states that she has had 2 liquid bowel movements daily. She denies any hematemesis, hematochezia, melena. She states she is not able to keep down liquids or solids and has been unable to take her medication. She has fever, chills, chest pain, dysuria. Patient reports using Advil twice a day continuously for chronic back pain Discussed with patient and she wishes to be full code. Past Med Surg Social Fam HX - Past Medical History Medical history: arthritis, GERD, hyperlipidemia, migraine, renal disease, seizures, thyroid disease, other Additional medical history: hiatal hernia. gastroparesis. pancreatitis. lumbar rediculopathy. hemorrhoids. polyps. diverticulosis. nerve stimulator Psychiatric history: depression, PTSD - Past Surgical History Surgical History: cholecystectomy, hysterectomy, orthopedic, other, other Additional surgical history: R TSR. R CTR. EGD/Colonoscopy - Social History Smoking Status: Never smoker Smokeless Tobacco Status: No Alcohol use: none Drug use: none - Family History Father Living Status: Mother Living Status: Hx Family Cardiac Disorders: Yes Hx Family Respiratory Disorders: No Hx Family Cancer: Yes (lung, pancreas, liver) Hx Family GI Disorders: No Hx Family Endocrine Disorder: No Hx Family Neuromuscular Disorders: No Hx Family Neurologic Disorders: No Hx Family HEENT Disorders: No Hx Family Autoimmune Disorders: No - Additional Family History Additional family history: Patient denies any significant history Internal Medicine - H&P: Meds Aspirin [Adult Low Dose Aspirin EC] 81 mg PO DAILY 11/18/15 [History] Cyanocobalamin (Vitamin B-12) [Vitamin B12] 1,000 mcg PO DAILY 11/18/15 [History] Dicyclomine 20 mg PO BID 11/18/15 [History] Hydrocortisone Sod Succ/Pf [Solu-Cortef 100 mg Vial] 100 mg IJ AD PRN 11/18/15 [History] Hydrocortisone [Cortef] 20 mg PO QAM 11/18/15 [History] Linaclotide [Linzess] 145 mcg PO DAILY PRN 07/06/16 [History] Estradiol [Estrace] 1 mg PO DAILY 05/23/17 [History] Prazosin [Minipress] 1 mg PO HS 05/23/17 [History] Progesterone,Micronized [Progesterone] 200 mg PO QPM 05/23/17 [History] Somatropin [Genotropin] 0.4 mg SQ QPM 05/23/17 [History] Ergocalciferol (VITAMIN D2) [Vitamin D2] 50,000 unit PO QWEEK 01/23/18 [History] Hydrocortisone [Cortef] 10 mg PO QPM 01/23/18 [History] Venlafaxine XR (24 HR) [Effexor XR] 75 mg PO DAILY 01/23/18 [History] lamoTRIgine [Lamictal] 150 mg PO QAM 01/23/18 [History] Levothyroxine [Synthroid] 150 mcg PO DAILY 01/24/18 [History] Quetiapine Fumarate [Seroquel] 300 mg PO HS 01/24/18 [History] Omeprazole 40 mg PO BID #120 tablet. 01/31/18 [Rx] Polyethylene Glycol 3350 [MiraLAX] 17 gm PO DAILY PRN #30 powd.pack 01/31/18 [Rx] Ondansetron ODT [Zofran ODT] 4 mg SL Q8HR PRN #14 tab.travis 04/08/18 [Rx] Buspirone HCl [Buspar] 7.5 mg PO BID 04/10/18 [History] Levomilnacipran HCl [Fetzima] 80 mg PO QAM 04/10/18 [History] Liothyronine Sodium [Cytomel] 25 mcg PO BID 04/10/18 [History] Ondansetron ODT [Zofran ODT] 4 mg SL Q8HR 30 Days #90 tab.travis 04/13/18 [Rx] Promethazine [Phenergan] 12.5 mg PO Q8HR 14 Days #35 tablet 04/13/18 [Rx] Allergy/AdvReac Type Severity Reaction Status Date / Time fentanyl Allergy Hives Verified 07/17/18 12:47 All Systems PM: A 10-system review of systems was performed and is negative for pertinent findings except as documented above in the HPI. Review of systems: 10 point review of systems was obtained and negative other than stated below: - Constitutional Constitutional: no chills, no fever(s) - Cardiovascular Cardiovascular ROS IM: no chest pain, no dyspnea - Gastrointestinal Gastrointestinal: abdominal pain, cramping, diarrhea, nausea, vomiting, no hematemesis, no melena - Constitutional Vitals: Temp Pulse Resp BP Pulse Ox 97.5 F L 87 15 147/87 97 10/20/18 15:32 10/20/18 15:32 10/20/18 15:32 10/20/18 15:32 10/20/18 15:32 General appearance: Present: A&O X 3, pleasant, no acute distress, answers questions appropriately Exam: . - Head Head exam: Present: atraumatic, normal inspection, normocephalic - Eye Eye exam: Present: EOMI, PERRL - ENT ENT exam: Present: mucous membranes moist, normal oropharynx - Neck Neck exam general surgery: Present: full ROM, supple - Respiratory Respiratory exam: Present: CTAB. Absent: rales, rhonchi, wheezes - Cardiovascular Cardiovascular exam: Present: RRR. Absent: gallop, rubs, systolic murmur - GI/Abdominal GI/Abdominal exam: Present: hypoactive bowel sounds, soft, tenderness (Left- sided). Absent: distended - Extremities Exam Extremities exam: Present: warm. Absent: pedal edema, tenderness - Neurological Exam Neurological exam: Present: alert, CN II-XII intact, oriented X3, no focal deficits - Psychiatric Psychiatric exam: Present: normal affect, normal mood - Skin Skin exam: Present: dry, intact, warm Internal Med - H&P Results - Labs CBC & Chem 7: 10/20/18 15:50 10/20/18 15:50 Labs: Short CBC 10/20/18 Range/Units 15:50 WBC 6.8 (4.3-11.1) K/mcL Hgb 13.4 (11.5-15.4) g/dL Hct 40.6 (35.3-44.9) % Plt Count 256 (140-400) K/mcL Neutrophils # 4.9 (1.6-8.9) K/mcL BMP 10/20/18 15:50 Sodium 140 Potassium 3.5 Chloride 106 Carbon Dioxide 24 BUN 9 Creatinine 0.72 Glucose 109 H Calcium 9.8 Cardiac Enzymes 10/20/18 Range/Units 15:50 Troponin I < 0.03 (< 0.04) ng/mL Liver Function 10/20/18 Range/Units 15:50 Total Bilirubin 0.3 (0.3-1.0) mg/dL Direct Bilirubin 0.0 (0.0-0.2) mg/dL AST 11 L (13-39) Units/L ALT 13 (7-52) Units/L Alkaline Phosphatase 104 (34-104) Units/L Albumin 4.5 (3.5-5.7) g/dL Urine 10/20/18 Range/Units 15:35 Urine Color Yellow (Yellow) Urine Clarity Clear (Clear) Urine pH 6.0 (5.0-8.0) pH Units Ur Specific [place] 1.014 (1.010-1.025) Urine Protein Negative (Neg-Trace) mg/dL Urine Glucose (UA) Normal (Normal) mg/dL - Impressions ITS Impressions Abdomen/Pelvis CT 10/20/18 15:44 IMPRESSION: No acute intra-abdominal abnormality D/ / Mateo Valiente MD / Mateo Valiente MD Interpreting Provider: Mateo Valiente MD Chest X-Ray 10/20/18 15:44 IMPRESSION: Clear lungs. D/ / Osiel Logan MD / Osiel Logan MD Interpreting Provider: Osiel Logan MD - Assessment and Plan (1) Acute gastroenteritis Current Visit: Yes Status: Acute Assessment and plan: Patient presents with left-sided abdominal pain that is chronic in nature and new loose stools. Etiology unclear. Labs are completely unremarkable. CT abdomen and pelvis reviewed and shows no acute findings. Did review previous biopsy results that did showed evidence of colitis. This may be related to chronic NSAID use. We will admit for symptomatic control with oxycodone sublingual, Phenergan, Zofran. Give lactated Ringer's for fluid hydration, check GI panel for infectious etiology. If not improving consider GI consult (2) Addisons disease Current Visit: Yes Status: Acute Assessment and plan: Patient has history of Brain's disease and takes hydrocortisone by mouth 20 mg in the morning, 10 mg around lunchtime, and 10 mg at 4 PM. She has not been able to take her by mouth medications for the last several days because of her nausea. Does not appear to be in acute atrial crisis as she is hemodynamically stable. Will switch to hydrocortisone IV 50 mg every 6 until the patient is able to take her by mouth medications. (3) Depression Current Visit: No Status: Chronic Assessment and plan: Stable. Continue home medications. Qualifiers: Depression Type: unspecified Qualified Code(s): F32.9 - Major depressive disorder, single episode, unspecified (4) Hypothyroidism Current Visit: No Status: Chronic Assessment and plan: Continue medications. Check TSH in the morning. Qualifiers: Hypothyroidism type: unspecified Qualified Code(s): E03.9 - Hypothyroidism, unspecified (5) DVT prophylaxis Current Visit: No Status: Acute Assessment and plan: Heparin 5000 units subcutaneous twice a day. - Time Spent With Patient Total time spent is greater than 50% in coordination of care (as documented) at patient's floor/unit and/or counseling patient:
[2018-10-20] MEDS: Lithium Carbonate 300 MG CAPSULE PO SCH (21:48)
[2018-10-20] MEDS: OXYCODONE Oral CONC 10 MG/0.5 ML ORAL.SYG SL PRN (22:21)
[2018-10-20] MEDS: Ringers Solution, Lactated 1,000 ML IVC SCH (22:21)
[2018-10-20] MEDS: *HR* Promethazine 25 MG/ML VIAL IVP PRN (22:22)
[2018-10-21] MEDS: Hydrocortisone Sodium Succ 100 MG/2 ML VIAL IVP SCH ×4 (02:07→17:26)
[2018-10-21] MEDS: OXYCODONE Oral CONC 10 MG/0.5 ML ORAL.SYG SL PRN ×5 (02:16→21:21)
[2018-10-21 04:26] LABS: Basophils % 0.2 %; Eosinophils % 0.2 %; Hematocrit 34.1 % (35.3-44.9); Immature Granulocytes % 0.2 % (0-4); Lymphocytes # 1.1 K/mcL (0.6-4.6); Lymphocytes % 18.9 %; Mean Corpuscular HGB Conc 32.8 g/dL (31.6-35.5); Mean Corpuscular Hemoglobin 27.5 pg (28.0-33.3); Mean Corpuscular Volume 83.8 fL (83.0-100.0); Mean Platelet Volume 10.2 fL (9.4-12.4); Monocytes # 0.5 K/mcL (0.0-1.3); Neutrophils # 4.1 K/mcL (1.6-8.9); Platelet Count 188 K/mcL (140-400); Red Blood Count 4.07 M/mcL (3.82-4.97); Red Cell Distribution Width 13.4 % (11.5-14.5); Segmented Neutrophils % 72.5 %
[2018-10-21 04:28] LABS: Hemoglobin 11.2 g/dL (11.5-15.4)
[2018-10-21 04:37] LABS: Alanine Aminotransferase 107 Units/L (7-52); Albumin 3.5 g/dL (3.5-5.7); Albumin/Globulin Ratio 1.8 (1.1-2.2); Alkaline Phosphatase 171 Units/L (34-104); Aspartate Amino Transferase 209 Units/L (13-39); BUN/Creatinine Ratio 11 (6-26); Bilirubin,Direct 0.2 mg/dL (0.0-0.2); Bilirubin,Indirect 0.3 mg/dL (0.0-1.2); Bilirubin,Total 0.5 mg/dL (0.3-1.0); Blood Urea Nitrogen 7 mg/dL (6-20); Carbon Dioxide 27 mEq/L (23-29); Chloride 108 mEq/L (98-107); Globulin 1.9 g/dL (2.4-3.5); Glucose 110 mg/dL (70-105); Magnesium 1.8 mg/dL (1.6-2.6); Osmolality,Calculated 291 (280-300); Sodium 141 mEq/L (136-145); Total Protein 5.4 g/dL (6.4-8.9); eGFR For Non-African Americans > 60 (> 60)
[2018-10-21 04:51] LABS: Thyroid Stimulating Hormone < 0.010 mcIU/mL (0.340-5.600)
[2018-10-21] MEDS: Ringers Solution, Lactated 1,000 ML IVC SCH (06:40)
[2018-10-21] MEDS: *HR* Promethazine 25 MG/ML VIAL IVP PRN (06:42)
[2018-10-21] MEDS: Pantoprazole 40 MG VIAL IVP SCH ×2 (06:42→17:26)
[2018-10-21 07:49] LABS: Triiodothyronine (T3) Free 3.98 pg/mL (2.50-3.90)
[2018-10-21] MEDS: Lithium Carbonate 300 MG CAPSULE PO SCH ×2 (08:29→21:20)
[2018-10-21] MEDS: lamoTRIgine 100 MG TABLET PO SCH ×2 (08:29→15:20)
[2018-10-21] MEDS: Ondansetron 4 MG/2 ML VIAL IVP PRN (08:41)
[2018-10-21] MEDS: Sucralfate 1 GM TABLET PO SCH ×3 (11:39→21:20)
--- NOTE | 2018-10-21 13:54 | Internal Med Progress Note ---
Hospitalist Progress Note - Encounter Date of Encounter: 10/21/18 Time of Encounter: 13:47 - Subjective Interval History: Ms. Adler is a 53 year old female with history of Shelocta's disease, chronic abdominal pain presents with left-sided abdominal pain. Patient states that she is had this abdominal pain consistently for the last several months however over the last several days it is acutely worsened. She reports associated nausea and vomited 4 days ago after a large meal but has no other vomiting since. She reports diarrhea over the last several days and states that she has had 2 liquid bowel movements daily. She denies any hematemesis, hematochezia, melena. She was admitted in the hospital and started her on IV hydration and analgesics. She is still c.o epigastric pain. She did go for EGD / Colonoscopy recently by Dr. Gutiérrez - Exam Vitals: Temp Pulse Resp BP Pulse Ox 98.8 F 87 18 113/69 98 10/21/18 12:23 10/21/18 12:23 10/21/18 12:23 10/21/18 12:23 10/21/18 12:23 Exam: Gen: Alert, awake, Oriented to time,place and person Chest: Diminished breath sounds B/L, No wheezing, No crackles, No rales Heart: S1S2+ RRR No murmurs Abd: Soft, Moderate discomfort in epigastric and benjie umbilical region, BS +, No organomegaly Ext: No edema, pulses are palpable, No calf tenderness Neuro : Benign findings Skin: No rash. - Assessment and Plan (1) Acute gastroenteritis Current Visit: Yes Status: Acute Assessment and Plan: Patient presents with left-sided abdominal pain that is chronic in nature and new loose stools Etiology unclear CT abdomen and pelvis reviewed and shows no acute findings Did review her recent EGD / Colonoscopy reports and biopsy results that did showed evidence of colitis Will check for GI Panel including C. Diff cont symptomatic and supportive care consulted GI for further eval reviewed her RUQ US - no acute changed noticed Cont PPI + Carafate (2) Nausea and vomiting Current Visit: Yes Status: Acute (3) Elevated LFTs Current Visit: No Status: Resolved Assessment and Plan: unclear etiology could due to previous h/o alcohol abuse however with her current symptoms - concerning for Hep A inf waiting on viral hepatitis panel trend on LFT's (4) GERD (gastroesophageal reflux disease) Current Visit: No Status: Acute Assessment and Plan: on PPI IV BID (5) Hypothyroidism Current Visit: No Status: Chronic Assessment and Plan: Resumed home medications (6) DVT prophylaxis Current Visit: No Status: Acute Assessment and Plan: Heparin 5000 units subcutaneous twice a day. (7) Depression Current Visit: No Status: Chronic Assessment and Plan: Stable. Continue home medications. (8) Addisons disease Current Visit: Yes Status: Acute Assessment and Plan: resumed home dose of Steroids - Time Spent with Patient Total time spent is greater than 50% in coordination of care (as documented) at patient's floor/unit and/or counseling patient: Internal Medicine: Result - Labs CBC & Chem 7: 10/21/18 03:51 10/21/18 03:51 Labs: Short CBC 10/20/18 10/21/18 Range/Units 15:50 03:51 WBC 6.8 5.7 (4.3-11.1) K/mcL Hgb 13.4 11.2 L D (11.5-15.4) g/dL Hct 40.6 34.1 L (35.3-44.9) % Plt Count 256 188 (140-400) K/mcL Neutrophils # 4.9 4.1 (1.6-8.9) K/mcL BMP 10/20/18 10/21/18 15:50 03:51 Sodium 140 141 Potassium 3.5 4.0 Chloride 106 108 H Carbon Dioxide 24 27 BUN 9 7 Creatinine 0.72 0.63 Glucose 109 H 110 H Calcium 9.8 9.0 Cardiac Enzymes 10/20/18 Range/Units 15:50 Troponin I < 0.03 (< 0.04) ng/mL Liver Function 10/20/18 10/21/18 Range/Units 15:50 03:51 Total Bilirubin 0.3 0.5 (0.3-1.0) mg/dL Direct Bilirubin 0.0 0.2 (0.0-0.2) mg/dL AST 11 L 209 H (13-39) Units/L ALT 13 107 H (7-52) Units/L Alkaline Phosphatase 104 171 H (34-104) Units/L Albumin 4.5 3.5 (3.5-5.7) g/dL Urine 10/20/18 Range/Units 15:35 Urine Color Yellow (Yellow) Urine Clarity Clear (Clear) Urine pH 6.0 (5.0-8.0) pH Units Ur Specific [place] 1.014 (1.010-1.025) Urine Protein Negative (Neg-Trace) mg/dL Urine Glucose (UA) Normal (Normal) mg/dL - Impressions Impressions Abdomen/Pelvis CT 10/20/18 15:44 IMPRESSION: No acute intra-abdominal abnormality D/ / Mateo Valiente MD / Mateo Valiente MD Interpreting Provider: Mateo Valiente MD Chest X-Ray 10/20/18 15:44 IMPRESSION: Clear lungs. D/ / Osiel Logan MD / Osiel Logan MD Interpreting Provider: Osiel Logan MD Liver Ultrasound 10/21/18 09:30 IMPRESSION: Gallbladder is surgically absent. Common bile duct measures up to 12 mm, which is not significantly changed since 01/23/2018, and is likely related to postcholecystectomy state. No intrahepatic biliary duct dilatation. D/ / 10/21/2018 10:21:16 Lorna Bryant MD / renetta Interpreting Provider: Lorna Bryant MD Consult Discharge Plan - Plan Referrals: Scarlett Talbert DO [Primary Care Provider] - 10/25/18 2:00 pm () (2) Nausea and vomiting Qualifiers: Vomiting type: unspecified Vomiting Intractability: intractable Qualified Code(s): R11.2 - Nausea with vomiting, unspecified (4) GERD (gastroesophageal reflux disease) Qualifiers: Esophagitis presence: esophagitis presence not specified Qualified Code(s): K21.9 - Gastro-esophageal reflux disease without esophagitis (5) Hypothyroidism Qualifiers: Hypothyroidism type: unspecified Qualified Code(s): E03.9 - Hypothyroidism, unspecified (7) Depression Qualifiers: Depression Type: unspecified Qualified Code(s): F32.9 - Major depressive disorder, single episode, unspecified
--- NOTE | 2018-10-21 19:09 | Anesthesia Evaluation PreOp ---
Date of Encounter: 10/21/18 Time of Encounter: 19:07 - Past History Planned Operation: ERCP Cardiac History: Angina (?Prinzmetal angina, now resolved sinch cholecystectomy), Hyperlipidemia Pulmonary History: Denies Any Significant HX CERTIFIED NUTRITIONIST History: Seizures (resolved with treatment of samson's dz), Syncope (resolved with treatment of samson's dz), Other (depression, migraines, PTSD, failed back surgery syndrome) Other Medical History: Diabetes Type II (prediabetic), Thyroid (hypo), GERD (hiatal hernia), Other (hx of addision's dz on chronic steroid will need stress dose steroids) Anesthesia History: No Prior Anesthetic Complications, Past Anesthesia (NATALI, dinesh, back surgery, elbow, R TSR, SCS) Alcohol Use: none Drug use: none Medications and Allergies Dicyclomine 20 mg PO QID PRN 11/18/15 [History] Hydrocortisone [Cortef] 20 mg PO QAM 11/18/15 [History] Estradiol [Estrace] 1 mg PO DAILY 05/23/17 [History] Prazosin [Minipress] 1 mg PO HS 05/23/17 [History] Progesterone,Micronized [Progesterone] 200 mg PO HS 05/23/17 [History] Somatropin [Genotropin] 0.4 mg SQ QPM 05/23/17 [History] Ergocalciferol (VITAMIN D2) [Vitamin D2] 50,000 unit PO QWEEK 01/23/18 [History] Hydrocortisone [Cortef] 10 mg PO 1200,1600 01/23/18 [History] lamoTRIgine [Lamictal] 100 mg PO 08,16 01/23/18 [History] Levothyroxine [Synthroid] 300 mcg PO DAILY 01/24/18 [History] Quetiapine Fumarate [Seroquel] 300 mg PO HS 01/24/18 [History] Polyethylene Glycol 3350 [MiraLAX] 17 gm PO DAILY PRN #30 powd.pack 01/31/18 [Rx] Buspirone HCl [Buspar] 7.5 mg PO BID 04/10/18 [History] Liothyronine Sodium [Cytomel] 25 mcg PO BID 04/10/18 [History] Dextroamphetamine/Amphetamine [Adderall 10 mg Tablet] 10 mg PO DAILY 10/20/18 [History] Duloxetine HCl [Cymbalta] 120 mg PO DAILY 10/20/18 [History] Esomeprazole Magnesium [Nexium] 40 mg PO BID 10/20/18 [History] [place] Carbonate 300 mg PO BID 10/20/18 [History] Ondansetron ODT [Zofran ODT] 4 mg SL Q6H PRN 10/20/18 [History] Ranitidine HCl [Acid Community Support Specialist] 150 mg PO DAILY@1700 10/20/18 [History] Sucralfate [Carafate] 1 gm PO QIDAC 10/20/18 [History] Allergy/AdvReac Type Severity Reaction Status Date / Time fentanyl Allergy Hives Verified 07/17/18 12:47 - Meds/Allergy Pre-op Review Medications Reviewed: Yes Allergies Reviewed: Yes Beta Blockers on Current Med List: No Anesthesia Results - Labs 10/21/18 03:51 10/21/18 03:51 - Imaging EKG: report reviewed (Normal sinus rhythm Electronically Signed On 04-13-2018 12:35:46 EDT by Lisbeth Tony) Additional studies: December 2016 stress echo Impressions: The exercise capacity was good. Exercise ECG is non-diagnostic for ischemia due to baseline ST-T wave abnormalities. Normal LV systolic function, LVEF 60-65%. Appropriate increase in contractility of all myocardial segments with exercise. No echocardiographic evidence of ischemia. Anesthesia Exam Vital Signs/O2 Sat, Most Current Temp Pulse Resp BP Pulse Ox 98.5 F 81 16 129/77 95 10/21/18 19:08 10/21/18 19:08 10/21/18 19:08 10/21/18 19:08 10/21/18 19:08 Weight: 81kg NPO (# of Hours): >8 - HEENT Pupil (Motor): Pupils equal, EOMI Mallampati: II Teeth: Normal Oral Opening: Greater than 3 - CERTIFIED NUTRITIONIST LOC: Oriented CERTIFIED NUTRITIONIST Motor: Normal RUE, Normal LUE, Normal RLE, Normal LLE, Normal Face CERTIFIED NUTRITIONIST Sensory: Normal: RUE, LUE, RLE, LLE, Face - Cardiac Rhythm: Regular - Pulmonary Breath Sounds: bilateral Clear Respiratory Effort: Symmetrical Anesthesia Assess/Plan ASA Score: 3 Level of consciousness: Cooperative Anesthetic Plan: General (WILL NEED STRESS DOSE STEROIDS) Monitoring Plan: Standard Monitors Recovery Plan: PACU
[2018-10-21 22:11] LABS: Hepatitis B Surface Antigen Nonreactive (Nonreactive)
[2018-10-21 22:40] LABS: Hepatitis C Virus Antibody Nonreactive (Nonreactive)
[2018-10-21 22:41] LABS: Hepatitis B Core IgM Nonreactive (Nonreactive)
[2018-10-21 22:42] LABS: Hepatitis A Antibody IgM Nonreactive (Nonreactive)
[2018-10-22] MEDS: Pantoprazole 40 MG VIAL IVP SCH ×2 (05:31→18:57)
[2018-10-22] MEDS: OXYCODONE Oral CONC 10 MG/0.5 ML ORAL.SYG SL PRN ×3 (05:37→19:39)
[2018-10-22 06:34] LABS: Basophils % 0.2 %; Eosinophils % 0.7 %; Hematocrit 33.2 % (35.3-44.9); Hemoglobin 10.9 g/dL (11.5-15.4); Immature Granulocytes % 0.2 % (0-4); Lymphocytes # 2.1 K/mcL (0.6-4.6); Lymphocytes % 46.7 %; Mean Corpuscular HGB Conc 32.8 g/dL (31.6-35.5); Mean Corpuscular Hemoglobin 27.3 pg (28.0-33.3); Mean Corpuscular Volume 83.2 fL (83.0-100.0); Mean Platelet Volume 10.1 fL (9.4-12.4); Monocytes # 0.5 K/mcL (0.0-1.3); Monocytes % 10.3 %; Neutrophils # 1.9 K/mcL (1.6-8.9); Platelet Count 171 K/mcL (140-400); Red Blood Count 3.99 M/mcL (3.82-4.97); Red Cell Distribution Width 13.4 % (11.5-14.5); Segmented Neutrophils % 41.9 %
[2018-10-22 07:07] LABS: Alanine Aminotransferase 83 Units/L (7-52); Albumin 3.5 g/dL (3.5-5.7); Albumin/Globulin Ratio 1.8 (1.1-2.2); Alkaline Phosphatase 147 Units/L (34-104); Aspartate Amino Transferase 48 Units/L (13-39); BUN/Creatinine Ratio 10 (6-26); Bilirubin,Direct 0.1 mg/dL (0.0-0.2); Bilirubin,Indirect 0.3 mg/dL (0.0-1.2); Bilirubin,Total 0.4 mg/dL (0.3-1.0); Blood Urea Nitrogen 6 mg/dL (6-20); Calcium 9.3 mg/dL (8.6-10.3); Carbon Dioxide 30 mEq/L (23-29); Chloride 107 mEq/L (98-107); Globulin 1.9 g/dL (2.4-3.5); Glucose 112 mg/dL (70-105); Magnesium 1.8 mg/dL (1.6-2.6); Osmolality,Calculated 294 (280-300); Sodium 143 mEq/L (136-145); Total Protein 5.4 g/dL (6.4-8.9); eGFR For Non-African Americans > 60 (> 60)
[2018-10-22] MEDS: lamoTRIgine 100 MG TABLET PO SCH ×2 (08:25→17:16)
[2018-10-22] MEDS: Lithium Carbonate 300 MG CAPSULE PO SCH ×2 (08:25→21:20)
[2018-10-22] MEDS: Sucralfate 1 GM TABLET PO SCH ×4 (08:25→21:21)
[2018-10-22] MEDS: Hydrocortisone 10 MG TABLET PO SCH ×3 (08:25→19:40)
[2018-10-22] MEDS: Ondansetron 4 MG/2 ML VIAL IVP PRN (14:08)
--- NOTE | 2018-10-22 15:15 | Internal Med Progress Note ---
Hospitalist Progress Note - Encounter Date of Encounter: 10/22/18 Time of Encounter: 14:40 - Subjective Interval History: Ms. Adler is a 53 year old female with history of Brain's disease, chronic abdominal pain presents with left-sided abdominal pain. Patient states that she is had this abdominal pain consistently for the last several months however over the last several days it is acutely worsened. She reports associated nausea and vomited 4 days ago after a large meal but has no other vomiting since. She reports diarrhea over the last several days and states that she has had 2 liquid bowel movements daily. She denies any hematemesis, hematochezia, melena. She did go for EGD / Colonoscopy recently by Dr. Gutiérrez She was admitted in the hospital and started her on IV hydration and analgesics. She is still c.o epigastric pain. Still requesting frequent pain medication. She is scheduled for ERCP today. - Exam Vitals: Temp Pulse Resp BP Pulse Ox 99.2 F 77 16 118/69 94 10/22/18 11:21 10/22/18 11:21 10/22/18 11:21 10/22/18 11:21 10/22/18 11:21 Exam: Gen: Alert, awake, Oriented to time,place and person Chest: Diminished breath sounds B/L, No wheezing, No crackles, No rales Heart: S1S2+ RRR No murmurs Abd: Soft, Moderate discomfort in epigastric and benjie umbilical region, BS +, No organomegaly Ext: No edema, pulses are palpable, No calf tenderness Neuro : Benign findings Skin: No rash. - Assessment and Plan (1) Acute gastroenteritis Current Visit: Yes Status: Acute Assessment and Plan: Patient presents with left-sided abdominal pain that is chronic in nature and new loose stools Etiology unclear CT abdomen and pelvis reviewed and shows no acute findings, other than stable CBD dilation @ 12mm size Did review her recent EGD / Colonoscopy reports and biopsy results that did showed evidence of colitis No more diarrhea No need to check for C. Diff cont symptomatic and supportive care reviewed her RUQ US - no acute changed noticed Cont PPI + Carafate (2) Nausea and vomiting Current Visit: Yes Status: Acute (3) Elevated LFTs Current Visit: No Status: Resolved Assessment and Plan: unclear etiology viral hepatitis panel came back is negative could be due to possible retracted CBD stone since she does have dilated CBD G. I is on board Unable to do MRCP due to her Neuro stimulator scheduled for ERCP today trend on LFT's (4) GERD (gastroesophageal reflux disease) Current Visit: No Status: Acute Assessment and Plan: on PPI IV BID (5) Hypothyroidism Current Visit: No Status: Chronic Assessment and Plan: Resumed home medications (6) DVT prophylaxis Current Visit: No Status: Acute Assessment and Plan: Heparin 5000 units subcutaneous twice a day. (7) Depression Current Visit: No Status: Chronic Assessment and Plan: Stable. Continue home medications. (8) Addisons disease Current Visit: Yes Status: Acute Assessment and Plan: resumed home dose of Steroids - Time Spent with Patient Total time spent is greater than 50% in coordination of care (as documented) at patient's floor/unit and/or counseling patient: Internal Medicine: Result - Labs CBC & Chem 7: 10/22/18 06:03 10/22/18 06:03 Labs: Short CBC 10/22/18 Range/Units 06:03 WBC 4.5 (4.3-11.1) K/mcL Hgb 10.9 L (11.5-15.4) g/dL Hct 33.2 L (35.3-44.9) % Plt Count 171 (140-400) K/mcL Neutrophils # 1.9 (1.6-8.9) K/mcL BMP 10/22/18 06:03 Sodium 143 Potassium 3.0 L Chloride 107 Carbon Dioxide 30 H BUN 6 Creatinine 0.63 Glucose 112 H Calcium 9.3 Liver Function 10/22/18 Range/Units 06:03 Total Bilirubin 0.4 (0.3-1.0) mg/dL Direct Bilirubin 0.1 (0.0-0.2) mg/dL AST 48 H (13-39) Units/L ALT 83 H (7-52) Units/L Alkaline Phosphatase 147 H (34-104) Units/L Albumin 3.5 (3.5-5.7) g/dL Consult Discharge Plan - Plan Referrals: Scarlett Talbert DO [Primary Care Provider] - 10/25/18 2:00 pm () (2) Nausea and vomiting Qualifiers: Vomiting type: unspecified Vomiting Intractability: intractable Qualified Code(s): R11.2 - Nausea with vomiting, unspecified (4) GERD (gastroesophageal reflux disease) Qualifiers: Esophagitis presence: esophagitis presence not specified Qualified Code(s): K21.9 - Gastro-esophageal reflux disease without esophagitis (5) Hypothyroidism Qualifiers: Hypothyroidism type: unspecified Qualified Code(s): E03.9 - Hypothyroidism, unspecified (7) Depression Qualifiers: Depression Type: unspecified Qualified Code(s): F32.9 - Major depressive disorder, single episode, unspecified
--- NOTE | 2018-10-22 16:53 | Gastroenterology Consult Note ---
<Jose M Parks - Last Filed: 10/22/18 16:51> Date of Encounter: 10/22/18 Time of Encounter: 11:15 - Assessment and plan (1) Abdominal pain Current Visit: Yes Status: Acute Assessment and plan: Continue PPI and plan for ERCP today. Qualifiers: Abdominal location: left lower quadrant Qualified Code(s): R10.32 - Left lower quadrant pain (2) Elevated LFTs Current Visit: No Status: Resolved Assessment and plan: AST 209. ALT 107, alk phos 171 yesterday. Today AST 48, ALT 83, alk phos 147. Concern for stone which may have passed. Plan for ERCP today. Keep NPO for procedure today. Continue to monitor hepatic panel daily. - Time Spent With Patient Total time spent is greater than 50% in coordination of care (as documented) at patient's floor/unit and/or counseling patient: GI History of Present Illness - Data of Consult Patient: known to practice within the last 3 years Consult date: 10/22/18 Requesting Physician: Don Coto MD - Consult Narrative Reason for consult: Abd pain History of present illness: Ms. Adler is a 53 year old female with PMHx of arthritis, GERD, HLD, migraine, seizures, Brain's disease, chronic abdominal pain who presents with epigastric abdominal pain that has been worsening over the last several months. She reports nausea and vomited 4 days ago after a large meal but has no other vomiting since. She states she is not able to keep down liquids or solids and has been unable to take her medication. LFTs have been elevated. Liver US shows CBD 12 mm which is unchanged since 01/23/2018. She reports diarrhea over the last several days and states that she has had 2 liquid bowel movements daily. Procedures: Colonoscopy 10/10/2018 Dr. Gutiérrez: Diverticulosis, focal colitis. EGD 10/10/2018 Dr. Gutiérrez: Normal EGD 01/30/2018 Dr. Green: LA grade A reflux esophagitis, gastritis. EGD 05/25/2017 Dr. Green: Grade 1 varices. Colonoscopy 05/01/2016 Dr. Phelps: Normal EGD 05/01/2016 Dr. Phelps: Normal NSAIDs: None Anticoagulation: None Past Med Surg Social Fam HX - Past Medical History Medical history: arthritis, GERD, hyperlipidemia, migraine, renal disease, seizures, thyroid disease, other Additional medical history: hiatal hernia addisons disease. gastroparesis. pancreatitis. lumbar rediculopathy. hemorrhoids. polyps. diverticulosis. nerve stimulator Psychiatric history: depression, PTSD - Past Surgical History Surgical History: cholecystectomy, hysterectomy, orthopedic, other, other Additional surgical history: R TSR. R CTR. EGD/Colonoscopy - Social History Smoking Status: Never smoker Smokeless Tobacco Status: No Alcohol use: none Drug use: none - Family History Father Living Status: Mother Living Status: Hx Family Cardiac Disorders: Yes Hx Family Respiratory Disorders: No Hx Family Cancer: Yes (lung, pancreas, liver) Hx Family GI Disorders: No Hx Family Endocrine Disorder: No Hx Family Neuromuscular Disorders: No Hx Family Neurologic Disorders: No Hx Family HEENT Disorders: No Hx Family Autoimmune Disorders: No - Gastrointestinal Gastrointestinal: Present: as per HPI - Constitutional Constitutional: as per HPI - EENT Eyes: as per HPI Ears: Present: as per HPI Nose, mouth and throat: Present: as per HPI - Cardiovascular Cardiovascular ROS: Present: as per HPI - Respiratory Respiratory IM: Present: as per HPI - Genitourinary Genitourinary: Absent: change in color, Urinary frequency - Neurological ROS Neurological GI: Present: as per HPI - Hematologic/Lymphatic Hematologic/Lymphatic pediatric: Present: as per HPI - Musculoskeletal Musculoskeletal ROS GI: Present: as per HPI - Integumentary Integumentary GI: Present: as per HPI - Psychiatric ROS Psychiatric GI: Present: as per HPI - Endocrine Endocrine IM: Present: as per HPI - Constitutional Vitals: Temp Pulse Resp BP Pulse Ox 98.8 F 78 16 136/80 97 10/22/18 15:31 10/22/18 15:31 10/22/18 15:31 10/22/18 15:31 10/22/18 15:31 General appearance: Present: cooperative, A&O X 3, no acute distress, answers questions appropriately - Head Head exam: Present: atraumatic, normocephalic - Eye Eye exam: Present: normal appearance, sclera anicteric - ENT ENT exam: Present: mucous membranes dry - Neck Neck exam general surgery: Present: normal inspection, trachea midline - Respiratory Respiratory exam: Present: decreased breath sounds, CTAB - Cardiovascular Cardiovascular exam: Present: RRR, +S1, +S2 - GI/Abdominal GI/Abdominal exam: Present: normal bowel sounds, soft, tenderness (epigastric), no peritoneal signs. Absent: distended, firm, guarding - Rectal Rectal exam: Present: deferred - Extremities Exam Extremities exam: Present: warm - Neurological Exam Neurological exam: Present: no focal deficits - Psychiatric Psychiatric exam: Present: normal affect, normal mood - Skin Skin exam: Present: dry, intact, normal color, warm Results - Labs CBC & Chem 7: 10/22/18 06:03 10/22/18 06:03 Labs: Last Result Calcium 9.3 mg/dL (8.6-10.3) 10/22/18 06:03 Troponin I < 0.03 ng/mL (< 0.04) 10/20/18 15:50 Entire Visit Hgb 10.9 g/dL (11.5-15.4) L 10/22/18 06:03 Hct 33.2 % (35.3-44.9) L 10/22/18 06:03 Total Bilirubin 0.4 mg/dL (0.3-1.0) 10/22/18 06:03 AST 48 Units/L (13-39) H 10/22/18 06:03 ALT 83 Units/L (7-52) H 10/22/18 06:03 Lipase 30 Units/L (11-82) 10/20/18 15:50 Consult Discharge Plan - Plan Referrals: Scarlett Talbert DO [Primary Care Provider] - 10/25/18 2:00 pm () <Carmen Gutiérrez - Last Filed: 10/22/18 17:49> Date of Encounter: 10/22/18 Time of Encounter: 13:00 - Time Spent With Patient Total time spent is greater than 50% in coordination of care (as documented) at patient's floor/unit and/or counseling patient: GI History of Present Illness - Data of Consult Requesting Physician: Don Coto MD - Consult Narrative History of present illness: Ms. Adler is a 53 year old female - Constitutional Vitals: Temp Pulse Resp BP Pulse Ox 98.8 F 78 16 136/80 97 10/22/18 15:31 10/22/18 15:31 10/22/18 15:31 10/22/18 15:31 10/22/18 15:31 Results - Labs CBC & Chem 7: 10/22/18 06:03 10/22/18 06:03 Labs: Last Result Calcium 9.3 mg/dL (8.6-10.3) 10/22/18 06:03 Troponin I < 0.03 ng/mL (< 0.04) 10/20/18 15:50 Entire Visit Hgb 10.9 g/dL (11.5-15.4) L 10/22/18 06:03 Hct 33.2 % (35.3-44.9) L 10/22/18 06:03 Total Bilirubin 0.4 mg/dL (0.3-1.0) 10/22/18 06:03 AST 48 Units/L (13-39) H 10/22/18 06:03 ALT 83 Units/L (7-52) H 10/22/18 06:03 Lipase 30 Units/L (11-82) 10/20/18 15:50 - Attending Attestation I have personally performed a face to face evaluation on this patient. I have reviewed and agree with the care plan. History and Exam by me shows: Patient seen patient the complaining of abdominal pain per patient she has this pain on and off for the last many months. Had EGD and colonoscopy done as an outpatient were unremarkable. On examination: Abdomen is soft but does has upper abdominal tenderness. Assessment: Patient with dilated CBD with the abnormal LFTs concerning for a CBD stone versus passed stone. Cannot have an MRCP done because of her implant of pain pump Rec: ERCP to Rule out CBD stone/obstruction
--- NOTE | 2018-10-22 21:32 | Electrocardiograph Report ---
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
[2018-10-23] MEDS: Pantoprazole 40 MG VIAL IVP SCH (05:50)
[2018-10-23] MEDS: OXYCODONE Oral CONC 10 MG/0.5 ML ORAL.SYG SL PRN (05:55)
[2018-10-23] MEDS: Ondansetron 4 MG/2 ML VIAL IVP PRN ×3 (05:56→21:49)
[2018-10-23 07:22] LABS: Alanine Aminotransferase 95 Units/L (7-52); Albumin 3.6 g/dL (3.5-5.7); Albumin/Globulin Ratio 1.7 (1.1-2.2); Alkaline Phosphatase 160 Units/L (34-104); Aspartate Amino Transferase 66 Units/L (13-39); BUN/Creatinine Ratio 12 (6-26); Bilirubin,Total 0.6 mg/dL (0.3-1.0); Blood Urea Nitrogen 8 mg/dL (6-20); Calcium 9.2 mg/dL (8.6-10.3); Carbon Dioxide 30 mEq/L (23-29); Chloride 105 mEq/L (98-107); Globulin 2.1 g/dL (2.4-3.5); Glucose 93 mg/dL (70-105); Osmolality,Calculated 298 (280-300); Potassium 3.3 mEq/L (3.5-5.1); Sodium 145 mEq/L (136-145); Total Protein 5.7 g/dL (6.4-8.9); eGFR For Non-African Americans > 60 (> 60)
[2018-10-23] MEDS: Sucralfate 1 GM TABLET PO SCH ×4 (10:13→21:47)
[2018-10-23] MEDS: lamoTRIgine 100 MG TABLET PO SCH ×2 (10:19→16:43)
[2018-10-23] MEDS: Lithium Carbonate 300 MG CAPSULE PO SCH ×2 (10:19→21:47)
[2018-10-23] MEDS: Hydrocortisone 10 MG TABLET PO SCH ×3 (10:20→16:42)
[2018-10-23] MEDS: *HR* Promethazine 25 MG/ML VIAL IVP PRN (10:20)
[2018-10-23] MEDS ORDERED: Ondansetron 4 MG/2 ML VIAL ONE ×3 (13:11→14:30)
[2018-10-23] MEDS ORDERED: Hydrocortisone Sodium Succ 100 MG/2 ML VIAL IVP STA (13:13)
[2018-10-23] MEDS ORDERED: Lidocaine -MPF 2% 2 ML VIAL ONE ×2 (13:33→13:55)
[2018-10-23] MEDS ORDERED: *HR* Propofol 200 MG/20 ML VIAL IVP ONE (13:33)
[2018-10-23] MEDS ORDERED: *HR* Succinylcholine 200 MG/10 ML VIAL IVP ONE (13:33)
[2018-10-23] MEDS ORDERED: Dexamethasone 4 MG/ML VIAL ONE (13:33)
[2018-10-23] MEDS ORDERED: Indomethacin 50 MG SUPP.RECT RC ONE (15:10)
[2018-10-23] MEDS ORDERED: *HR* Promethazine 25 MG/ML VIAL IVP PRN ×2 (15:54→16:05)
--- NOTE | 2018-10-23 15:58 | Internal Med Progress Note ---
Hospitalist Progress Note - Encounter Date of Encounter: 10/23/18 Time of Encounter: 11:30 - Subjective Interval History: Ms. Adler is a 53 year old female with history of Brain's disease, chronic abdominal pain presents with left-sided abdominal pain. Patient states that she is had this abdominal pain consistently for the last several months however over the last several days it is acutely worsened. She reports associated nausea and vomited 4 days ago after a large meal but has no other vomiting since. She reports diarrhea over the last several days and states that she has had 2 liquid bowel movements daily. She denies any hematemesis, hematochezia, melena. She did go for EGD / Colonoscopy recently by Dr. Gutiérrez She was admitted in the hospital and started her on IV hydration and analgesics. She is still c.o epigastric pain. Still requesting frequent pain medication. She did not for ERCP last night due to GI's busy schedule. She is scheduled for ERCP today. - Exam Vitals: Temp Pulse Resp BP Pulse Ox 97.9 F 93 20 137/74 97 10/23/18 15:35 10/23/18 15:45 10/23/18 15:45 10/23/18 15:45 10/23/18 15:45 Exam: Gen: Alert, awake, Oriented to time,place and person Chest: Diminished breath sounds B/L, No wheezing, No crackles, No rales Heart: S1S2+ RRR No murmurs Abd: Soft, Moderate discomfort in epigastric and benjie umbilical region, BS +, No organomegaly Ext: No edema, pulses are palpable, No calf tenderness Neuro : Benign findings Skin: No rash. - Assessment and Plan (1) Acute gastroenteritis Current Visit: Yes Status: Acute Assessment and Plan: Patient presents with left-sided abdominal pain that is chronic in nature and new loose stools CT abdomen and pelvis reviewed and shows no acute findings, other than stable CBD dilation @ 12mm size Did review her recent EGD / Colonoscopy reports and biopsy results that did showed evidence of colitis No more diarrhea No need to check for C. Diff cont symptomatic and supportive care reviewed her RUQ US - no acute changed noticed other than CBD dilation Cont PPI + Carafate (2) Nausea and vomiting Current Visit: Yes Status: Acute (3) Elevated LFTs Current Visit: No Status: Resolved Assessment and Plan: Mostly due to possible retracted CBD stone since she does have dilated CBD viral hepatitis panel came back is negative Yinka Hazel is on board Unable to do MRCP due to her Neuro stimulator scheduled for ERCP today trend on LFT's (4) GERD (gastroesophageal reflux disease) Current Visit: No Status: Acute Assessment and Plan: on PPI BID and Carafate (5) Hypothyroidism Current Visit: No Status: Chronic Assessment and Plan: Resumed home medications (6) DVT prophylaxis Current Visit: No Status: Acute Assessment and Plan: Heparin 5000 units subcutaneous twice a day. (7) Depression Current Visit: No Status: Chronic Assessment and Plan: Stable. Continue home medications. (8) Addisons disease Current Visit: Yes Status: Acute Assessment and Plan: resumed home dose of Steroids - Time Spent with Patient Total time spent is greater than 50% in coordination of care (as documented) at patient's floor/unit and/or counseling patient: Internal Medicine: Result - Labs CBC & Chem 7: 10/22/18 06:03 10/23/18 06:11 Labs: BMP 10/23/18 06:11 Sodium 145 Potassium 3.3 L Chloride 105 Carbon Dioxide 30 H BUN 8 Creatinine 0.66 Glucose 93 Calcium 9.2 Liver Function 10/23/18 Range/Units 06:11 Total Bilirubin 0.6 (0.3-1.0) mg/dL AST 66 H (13-39) Units/L ALT 95 H (7-52) Units/L Alkaline Phosphatase 160 H (34-104) Units/L Albumin 3.6 (3.5-5.7) g/dL - Impressions Impressions Liver Ultrasound 10/21/18 09:30 IMPRESSION: Gallbladder is surgically absent. Common bile duct measures up to 12 mm, which is not significantly changed since 01/23/2018, and is likely related to postcholecystectomy state. No intrahepatic biliary duct dilatation. D/ / 10/21/2018 10:21:16 Lorna Bryant MD / renetta Interpreting Provider: Lorna Bryant MD Cath/Invasive Procedure 10/23/18 14:35 IMPRESSION: Dilatation of common bile duct redemonstrated, similar to recent exams. Please refer to the procedure report for further details. D/ / Facundo Segura MD / Facundo Segura MD Interpreting Provider: Facundo Segura MD Consult Discharge Plan - Plan Referrals: Scarlett Talbert DO [Primary Care Provider] - 10/25/18 2:00 pm () (2) Nausea and vomiting Qualifiers: Vomiting type: unspecified Vomiting Intractability: intractable Qualified Code(s): R11.2 - Nausea with vomiting, unspecified (4) GERD (gastroesophageal reflux disease) Qualifiers: Esophagitis presence: esophagitis presence not specified Qualified Code(s): K21.9 - Gastro-esophageal reflux disease without esophagitis (5) Hypothyroidism Qualifiers: Hypothyroidism type: unspecified Qualified Code(s): E03.9 - Hypothyroidism, unspecified (7) Depression Qualifiers: Depression Type: unspecified Qualified Code(s): F32.9 - Major depressive disorder, single episode, unspecified
--- NOTE | 2018-10-23 16:17 | Anesthesia Evaluation Post Op ---
Date of Encounter: 10/23/18 Time of Encounter: 16:17 - Vital Signs Vital Signs: Vital Signs/O2 Sat, Most Current Temp Pulse Resp BP Pulse Ox 98.2 F 92 18 139/75 98 10/23/18 16:15 10/23/18 16:15 10/23/18 16:15 10/23/18 16:15 10/23/18 16:15 - Lungs Lungs: Clear Ascult./Percussion - Airway Airway: Non-obstructed - Cardiovascular Regular Rate - Mental Status Mental Status: Alert & Oriented, Answers Appropriately - Pain Pain Scale: 0 Pain Scale used: Numeric (1 - 10) - Nausea Vomiting Nausea Vomiting: Not Present - Hydration Hydration: Tolerates oral liquids, Has not voided - Discharge PostOp Status: Transfer Patient to floor
[2018-10-24 05:20] LABS: Alanine Aminotransferase 72 Units/L (7-52); Albumin 3.6 g/dL (3.5-5.7); Albumin/Globulin Ratio 1.8 (1.1-2.2); Alkaline Phosphatase 147 Units/L (34-104); Aspartate Amino Transferase 26 Units/L (13-39); BUN/Creatinine Ratio 19 (6-26); Bilirubin,Total 0.5 mg/dL (0.3-1.0); Blood Urea Nitrogen 12 mg/dL (6-20); Calcium 9.2 mg/dL (8.6-10.3); Carbon Dioxide 28 mEq/L (23-29); Chloride 105 mEq/L (98-107); Glucose 134 mg/dL (70-105); Osmolality,Calculated 302 (280-300); Potassium 3.3 mEq/L (3.5-5.1); Sodium 145 mEq/L (136-145); Total Protein 5.6 g/dL (6.4-8.9); eGFR For Non-African Americans > 60 (> 60)
[2018-10-24 06:37] VITALS: BP 118/72
[2018-10-24] MEDS: lamoTRIgine 100 MG TABLET PO SCH (09:05)
[2018-10-24] MEDS: Sucralfate 1 GM TABLET PO SCH (09:07)
[2018-10-24] MEDS: Hydrocortisone 10 MG TABLET PO SCH (09:07)
[2018-10-24] MEDS: Lithium Carbonate 300 MG CAPSULE PO SCH (09:07)
--- NOTE | 2018-10-24 09:32 | Discharge Summary ---
- NOTES TO OUTPATIENT PROVIDER Notes to Outpatient Provider: Follow up with PCP in one week. Follow-up with lime burner Dr. Gutiérrez in 1 to 2 weeks. Orders not resulted at time of discharge: Pending orders 10/23/18 15:21 Surgical Pathology [PTH] Routine Date of Encounter: 10/24/18 Time of Encounter: 09:29 - Discharge Diagnosis (1) Acute gastroenteritis Priority: Primary Status: Acute (2) Nausea and vomiting Priority: Primary Status: Acute Qualifiers: Vomiting type: unspecified Vomiting Intractability: intractable Qualified Code(s): R11.2 - Nausea with vomiting, unspecified (3) Elevated LFTs Priority: Primary Status: Resolved (4) GERD (gastroesophageal reflux disease) Priority: Secondary Status: Acute Qualifiers: Esophagitis presence: esophagitis presence not specified Qualified Code(s): K21.9 - Gastro-esophageal reflux disease without esophagitis (5) Hypothyroidism Priority: Secondary Status: Chronic Qualifiers: Hypothyroidism type: unspecified Qualified Code(s): E03.9 - Hypothyroidism, unspecified (6) DVT prophylaxis Priority: Secondary Status: Acute (7) Depression Priority: Secondary Status: Chronic Qualifiers: Depression Type: unspecified Qualified Code(s): F32.9 - Major depressive disorder, single episode, unspecified (8) Addisons disease Priority: Secondary Status: Acute Hospital course: Ms. Adler is a 53 year old female with history of Cisco's disease, chronic abdominal pain presents with left-sided abdominal pain. Patient states that she is had this abdominal pain consistently for the last several months however over the last several days it is acutely worsened. She reports associated nausea and vomited 4 days ago after a large meal but has no other vomiting since. She reports diarrhea over the last several days and states that she has had 2 liquid bowel movements daily. She denies any hematemesis, hematochezia, melena. She did go for EGD / Colonoscopy recently by Dr. Gutiérrez She was admitted in the hospital and started her on IV hydration and analgesics. Her LFT's were elevated and CBD was dilated too. We asked GI to evaluate the pt. Pt was seen by Evelyn Gutiérrez who did ERCP y/d, biliarysphincterotomy. The biliary tree was swept and removed the sludge. She does have gastritis too. Pt's LFT's trended down to normal today. Her abd also better and she is able to eat better today. So will d/c him home in stable condition today. Recommend to f/u with GI in 1-2 weeks to discuss about pathology reports. - Time Spent with Patient Total time spent providing and/or coordinating discharge services: - Discharge Medications Prescriptions: Continue Hydrocortisone [Cortef] 20 mg PO QAM Dicyclomine 20 mg PO QID PRN PRN Reason: ABDOMINAL CRAMPING Prazosin [Minipress] 1 mg PO HS Progesterone,Micronized [Progesterone] 200 mg PO HS Estradiol [Estrace] 1 mg PO DAILY Somatropin [Genotropin] 0.4 mg SQ QPM Ergocalciferol (VITAMIN D2) [Vitamin D2] 50,000 unit PO QWEEK Hydrocortisone [Cortef] 10 mg PO 1200,1600 lamoTRIgine [Lamictal] 100 mg PO 16 Quetiapine Fumarate [Seroquel] 300 mg PO HS Levothyroxine [Synthroid] 300 mcg PO DAILY Polyethylene Glycol 3350 [MiraLAX] 17 gm PO DAILY PRN #30 powd.pack PRN Reason: Constipation Buspirone HCl [Buspar] 7.5 mg PO BID Liothyronine Sodium [Cytomel] 25 mcg PO BID Dextroamphetamine/Amphetamine [Adderall 10 mg Tablet] 10 mg PO DAILY Duloxetine HCl [Cymbalta] 120 mg PO DAILY Esomeprazole Magnesium [Nexium] 40 mg PO BID [place] Carbonate 300 mg PO BID Ondansetron ODT [Zofran ODT] 4 mg SL Q6H PRN PRN Reason: Nausea And Vomiting Ranitidine HCl [Acid Plant Guard] 150 mg PO DAILY@1700 Sucralfate [Carafate] 1 gm PO QIDAC Home Medications: Dicyclomine 20 mg PO QID PRN 11/18/15 [History] Hydrocortisone [Cortef] 20 mg PO QAM 11/18/15 [History] Estradiol [Estrace] 1 mg PO DAILY 05/23/17 [History] Prazosin [Minipress] 1 mg PO HS 05/23/17 [History] Progesterone,Micronized [Progesterone] 200 mg PO HS 05/23/17 [History] Somatropin [Genotropin] 0.4 mg SQ QPM 05/23/17 [History] Ergocalciferol (VITAMIN D2) [Vitamin D2] 50,000 unit PO QWEEK 01/23/18 [History] Hydrocortisone [Cortef] 10 mg PO 1200,1600 01/23/18 [History] lamoTRIgine [Lamictal] 100 mg PO 08,16 01/23/18 [History] Levothyroxine [Synthroid] 300 mcg PO DAILY 01/24/18 [History] Quetiapine Fumarate [Seroquel] 300 mg PO HS 01/24/18 [History] Polyethylene Glycol 3350 [MiraLAX] 17 gm PO DAILY PRN #30 powd.pack 01/31/18 [Rx] Buspirone HCl [Buspar] 7.5 mg PO BID 04/10/18 [History] Liothyronine Sodium [Cytomel] 25 mcg PO BID 04/10/18 [History] Dextroamphetamine/Amphetamine [Adderall 10 mg Tablet] 10 mg PO DAILY 10/20/18 [History] Duloxetine HCl [Cymbalta] 120 mg PO DAILY 10/20/18 [History] Esomeprazole Magnesium [Nexium] 40 mg PO BID 10/20/18 [History] [place] Carbonate 300 mg PO BID 10/20/18 [History] Ondansetron ODT [Zofran ODT] 4 mg SL Q6H PRN 10/20/18 [History] Ranitidine HCl [Acid Plant Guard] 150 mg PO DAILY@1700 10/20/18 [History] Sucralfate [Carafate] 1 gm PO QIDAC 10/20/18 [History] Allergies/Adverse Reactions: Allergy/AdvReac Type Severity Reaction Status Date / Time fentanyl Allergy Hives Verified 07/17/18 12:47 Date of admission: 10/20/18 20:12 Primary care physician: Scarlett Talbert DO Consults: 10/21/18 13:50 Consult to Gastroenterology [CONS] Routine Consulting Provider: Gastroenterology Malathi Reason for Consult: Abd pain Time Notified: 13:50 Call Completed: Yes - Constitutional Vitals: Temp Pulse Resp BP Pulse Ox 98.3 F 80 20 118/72 95 10/24/18 06:33 10/24/18 06:33 10/24/18 06:33 10/24/18 06:33 10/24/18 06:33 General appearance: Present: A&O X 3, pleasant, no acute distress, answers questions appropriately Exam: Gen: Alert, awake, Oriented to time,place and person Chest: Diminished breath sounds B/L, No wheezing, No crackles, No rales Heart: S1S2+ RRR No murmurs Abd: Soft, NT, BS +, No organomegaly Ext: No edema, pulses are palpable, No calf tenderness Neuro : Benign findings Skin: No rash. - Patient Status Disposition: Home, Self-Care Condition: Good Overall status at discharge: patient is back to baseline - Discharge Instructions Follow Up With: Scarlett Talbert DO [Primary Care Provider] - 10/25/18 2:00 pm () Carmen Gutiérrez MD [Partnered Physician] - - Diet and Activity Activity: increase activity as tolerated Diet: low salt diet
[2018-10-24] MEDS: OXYCODONE Oral CONC 10 MG/0.5 ML ORAL.SYG SL PRN (10:05)
== END 2018-10-24 10:48 | disposition home or self-care (01) ==
LOC: EMEROOARM 15:19 → 3BNU 15:19 → SUATTDRO 20:12 → 3BNU 20:51
PROVIDERS: ADMIT Internal Medicine; ATTEND Family Medicine
PROC: ENDOEBX (2018-10-23 13:30)

== ENCOUNTER 2020-02-02 06:12 | Inpatient (IN) ==
[2020-02-02] MEDS ORDERED: CeFAZolin Syr 2,000MG/20 ML 2,000 MG/20 ML SYRINGE IVPB ONE (06:34)
[2020-02-02] MEDS ORDERED: Famotidine 20 MG/2 ML VIAL IVP ONE (06:37)
[2020-02-02] MEDS ORDERED: Acetaminophen IV 1,000 MG/100 ML INFUS..BTL IVPB ONE (06:38)
[2020-02-02] MEDS ORDERED: Ringers Solution, Lactated 1,000 ML IVC SCH (06:45)
[2020-02-02] MEDS ORDERED: Lidocaine -MPF 4% 5 ML AMPUL ONE (06:58)
[2020-02-02] MEDS ORDERED: Lidocaine -MPF 2% 2 ML VIAL ONE ×2 (06:58→07:09)
[2020-02-02] MEDS ORDERED: *HR* Succinylcholine 200 MG/10 ML VIAL IVP ONE (06:58)
[2020-02-02] MEDS ORDERED: *HR* Rocuronium Bromide 50 MG/5 ML VIAL ONE ×3 (06:58→08:59)
[2020-02-02] MEDS ORDERED: *HR* FentaNYL (PF) 100 MCG/2 ML VIAL ONE (06:59)
[2020-02-02] MEDS ORDERED: *HR* Propofol 200 MG/20 ML VIAL IVP ONE (06:59)
[2020-02-02] MEDS ORDERED: *HR* Midazolam HCl 2 MG/2 ML VIAL ONE (06:59)
[2020-02-02] MEDS ORDERED: Dexamethasone 4 MG/ML VIAL ONE (07:09)
[2020-02-02] MEDS ORDERED: Ondansetron 4 MG/2 ML VIAL ONE ×2 (07:09→13:53)
[2020-02-02] MEDS ORDERED: Ondansetron 4 MG/2 ML VIAL IVP ONE ×2 (07:30→22:50)
[2020-02-02] MEDS ORDERED: *HR* HYDROmorphone PF 0.5 MG/0.5 ML SYRINGE IVP PRN (07:30)
[2020-02-02] MEDS ORDERED: *HR* HYDROMORPHONE 2 MG/ML VIAL ONE ×2 (07:54→10:25)
[2020-02-02] MEDS ORDERED: *HR* PHENYLEPHRINE 1,000 MCG/10 ML SYRINGE IVP ONE (08:15)
[2020-02-02] MEDS ORDERED: EPHEDrine 50 MG/ML VIAL ONE (08:25)
[2020-02-02] MEDS ORDERED: Naloxone 0.4 MG/ML INJ IVP PRN (14:56)
[2020-02-02] MEDS ORDERED: *HR* HYDROmorphone 20 MG/20 ML PCA IVC PRN (14:56)
[2020-02-02] MEDS ORDERED: hydrOXYzine pamoate 25 MG CAPSULE PO PRN (14:56)
[2020-02-02] MEDS: Ondansetron 4 MG/2 ML VIAL IVP PRN ×2 (15:17→21:51)
[2020-02-02] MEDS: Gabapentin 300 MG CAPSULE PO SCH ×2 (17:11→23:54)
[2020-02-02] MEDS: 0.9 % Sodium Chloride w KCl 20 MEQ/1,000 ML MLS IVC SCH (17:21)
[2020-02-02] MEDS ORDERED: *HR* Promethazine 25 MG/ML VIAL IVP PRN (22:50)
[2020-02-02] MEDS: Hydrocortisone Sodium Succ 100 MG/2 ML VIAL IVP SCH (23:54)
[2020-02-02] MEDS: PROGESTERONE 200 MG PO SCH (23:54)
[2020-02-02] MEDS: traZODone 50 MG TABLET PO SCH (23:54)
[2020-02-03] MEDS: 0.9 % Sodium Chloride w KCl 20 MEQ/1,000 ML MLS IVC SCH (04:50)
[2020-02-03 06:37] LABS: Basophils % 0.1 %; Hematocrit 33.4 % (35.3-44.9); Hemoglobin 11.1 g/dL (11.5-15.4); Immature Granulocytes % 0.2 % (0-4); Lymphocytes # 1.1 K/mcL (0.6-4.6); Lymphocytes % 11.6 %; Mean Corpuscular HGB Conc 33.2 g/dL (31.6-35.5); Mean Corpuscular Hemoglobin 30.6 pg (28.0-33.3); Mean Platelet Volume 9.7 fL (9.4-12.4); Monocytes # 1.1 K/mcL (0.0-1.3); Monocytes % 11.3 %; Neutrophils # 7.6 K/mcL (1.6-8.9); Platelet Count 197 K/mcL (140-400); Red Blood Count 3.63 M/mcL (3.82-4.97); Red Cell Distribution Width 12.1 % (11.5-14.5); Segmented Neutrophils % 76.8 %; White Blood Count 9.9 K/mcL (4.3-11.1)
[2020-02-03 06:58] LABS: BUN/Creatinine Ratio 13 (6-26); Blood Urea Nitrogen 11 mg/dL (6-20); Calcium 8.8 mg/dL (8.6-10.3); Carbon Dioxide 27 mEq/L (23-29); Chloride 106 mEq/L (98-107); Glucose 106 mg/dL (70-105); Magnesium 1.6 mg/dL (1.6-2.6); Osmolality,Calculated 288 (280-300); Phosphorous 2.7 mg/dL (2.7-4.5); Potassium 3.9 mEq/L (3.5-5.1); Sodium 139 mEq/L (136-145); eGFR For African Americans > 60 (> 60); eGFR For Non-African Americans > 60 (> 60)
[2020-02-03] MEDS: estradioL 1 MG TABLET PO SCH (08:44)
[2020-02-03] MEDS: Gabapentin 300 MG CAPSULE PO SCH ×3 (08:45→20:30)
[2020-02-03] MEDS: Hydrocortisone Sodium Succ 100 MG/2 ML VIAL IVP SCH ×2 (08:45→14:53)
[2020-02-03] MEDS: SOMATROPIN SQ SCH (08:45)
[2020-02-03] MEDS: Ibuprofen 400 MG TABLET PO PRN (08:49)
[2020-02-03] MEDS: Ondansetron 4 MG/2 ML VIAL IVP PRN (08:49)
[2020-02-03] MEDS ORDERED: Potassium Phosphate 44 MEQ in 0.9 % Sodium Chloride 250 ML IVPB ONE (09:03)
[2020-02-03] MEDS ORDERED: *HR* HYDROmorphone 20 MG/20 ML PCA IVC PRN (09:06)
[2020-02-03] MEDS ORDERED: D5% in 0.45% NACL 1,000 ML IVC SCH (09:15)
[2020-02-03] MEDS: D5% in 0.45% NACL 1,000 ML IVC SCH (18:27)
[2020-02-03] MEDS: Hydrocortisone 10 MG TABLET PO SCH ×2 (20:29→20:30)
[2020-02-03] MEDS: traZODone 50 MG TABLET PO SCH (20:31)
[2020-02-03] MEDS: PROGESTERONE 200 MG PO SCH (20:34)
[2020-02-04] MEDS: *HR* Enoxaparin 40 MG/0.4 ML SYRINGE SQ SCH (05:53)
[2020-02-04] MEDS: D5% in 0.45% NACL 1,000 ML IVC SCH ×2 (07:42→21:08)
[2020-02-04] MEDS: Hydrocortisone 10 MG TABLET PO SCH ×3 (07:43→21:10)
[2020-02-04] MEDS: SOMATROPIN SQ SCH (07:43)
[2020-02-04] MEDS: estradioL 1 MG TABLET PO SCH (07:43)
[2020-02-04] MEDS: Gabapentin 300 MG CAPSULE PO SCH ×3 (07:43→21:09)
[2020-02-04] MEDS: *HR* OxyCODONE Immed Rel 5 MG TABLET PO PRN ×2 (13:02→19:05)
[2020-02-04] MEDS: Ibuprofen 400 MG TABLET PO PRN (17:50)
[2020-02-04] MEDS: traZODone 50 MG TABLET PO SCH (21:09)
[2020-02-05] MEDS: D5% in 0.45% NACL 1,000 ML IVC SCH ×2 (02:14→22:15)
[2020-02-05] MEDS: *HR* Enoxaparin 40 MG/0.4 ML SYRINGE SQ SCH (06:28)
[2020-02-05] MEDS: Gabapentin 300 MG CAPSULE PO SCH ×3 (10:12→20:30)
[2020-02-05] MEDS: estradioL 1 MG TABLET PO SCH (10:12)
[2020-02-05] MEDS: Hydrocortisone 10 MG TABLET PO SCH ×3 (10:17→20:40)
[2020-02-05] MEDS: Ibuprofen 400 MG TABLET PO PRN (14:53)
[2020-02-05] MEDS: *HR* OxyCODONE Immed Rel 5 MG TABLET PO PRN ×2 (16:11→22:15)
[2020-02-05] MEDS: traZODone 50 MG TABLET PO SCH (20:30)
[2020-02-06] MEDS: *HR* Enoxaparin 40 MG/0.4 ML SYRINGE SQ SCH (10:19)
[2020-02-06] MEDS: estradioL 1 MG TABLET PO SCH (10:19)
[2020-02-06] MEDS: Hydrocortisone 10 MG TABLET PO SCH (10:19)
[2020-02-06] MEDS: Gabapentin 300 MG CAPSULE PO SCH (10:19)
[2020-02-06 11:01] VITALS: BP 118/69
== END 2020-02-06 13:22 | disposition home or self-care (01) | DRG 330 ==
LOC: SAMDAY 06:12 → 3ANU 14:54
PROVIDERS: ADMIT Surgery; ATTEND Surgery

== ENCOUNTER 2022-04-03 18:10 | Inpatient (IN) ==
[2022-04-03 18:55] LABS: Basophils % 0.4 %; Eosinophils % 0.3 %; Hematocrit 40.2 % (35.3-44.9); Hemoglobin 13.4 g/dL (11.5-15.4); Immature Granulocytes % 0.1 % (0-4); Lymphocytes # 1.7 K/mcL (0.6-4.6); Lymphocytes % 22.6 %; Mean Corpuscular HGB Conc 33.3 g/dL (31.6-35.5); Mean Corpuscular Hemoglobin 29.6 pg (28.0-33.3); Mean Corpuscular Volume 88.9 fL (83.0-100.0); Mean Platelet Volume 10.6 fL (9.4-12.4); Monocytes # 0.7 K/mcL (0.0-1.3); Monocytes % 9.1 %; Platelet Count 207 K/mcL (140-400); Red Blood Count 4.52 M/mcL (3.82-4.97); Red Cell Distribution Width 12.2 % (11.5-14.5); Segmented Neutrophils % 67.5 %; White Blood Count 7.4 K/mcL (4.3-11.1)
[2022-04-03 18:57] LABS: Bilirubin,Urine Negative (Negative); Blood,Urine Negative (Negative); Clarity,Urine Clear (Clear); Color,Urine Yellow (Yellow); Glucose,Urine (UA) Normal (Normal); Ketones,Urine 60 mg/dL (Negative); Leukocyte Esterase,Urine Small (Negative); Mucus,Urine Few per lpf (None-Few); Nitrite,Urine Negative (Negative); PH,Urine 6.5 pH Units (5.0-8.0); Protein,Urine 30 mg/dL (Neg-Trace); RBC,Urine 0-3 per hpf (0-3); Specific Gravity,Urine 1.021 (1.010-1.025); Squamous Epithelial Cell,Urine Moderate per hpf (None-Few); Urobilinogen,Urine Normal (Normal)
[2022-04-03 19:04] LABS: Amphetamine Screen,Urine Negative ng/mL (Cutoff=1000); Barbiturate Screen,Urine Negative ng/mL (Cutoff=200); Benzodiazepines Screen,Urine Negative ng/mL (Cutoff=200); Cannabinoid Screen,Urine Negative ng/mL (Cutoff = 50); Cocaine Screen,Urine Negative ng/mL (Cutoff= 300); Opiate Screen,Urine Negative ng/mL (Cutoff=300); Phencyclidine Screen,Urine Negative ng/mL (Cutoff=25)
[2022-04-03 19:14] LABS: Acetaminophen < 10 mcg/mL (10-20); BUN/Creatinine Ratio 10 (6-26); Blood Urea Nitrogen 10 mg/dL (6-20); Calcium 8.7 mg/dL (8.6-10.3); Carbon Dioxide 29 mEq/L (23-29); Chloride 102 mEq/L (98-107); Ethanol < 10 mg/dL (Less than 10); Glucose 103 mg/dL (70-105); Osmolality,Calculated 287 (280-300); Potassium 2.8 mEq/L (3.5-5.1); Salicylate < 2.5 mg/dL (15.0-30.0); Sodium 139 mEq/L (136-145)
[2022-04-03] MEDS ORDERED: Potassium Chloride Elixir 20 MEQ/15 ML UDC PO ONE (19:33)
[2022-04-04 07:31] LABS: Influenza A PCR Negative (Negative); Influenza B PCR Negative (Negative); Resp. Syncytial Virus PCR Negative (Negative)
[2022-04-04 07:32] LABS: SARS-CoV-2 by PCR (In House) Negative (Negative)
[2022-04-04] MEDS ORDERED: traZODone 50 MG TABLET PO PRN (16:32)
[2022-04-04] MEDS ORDERED: hydrOXYzine pamoate 25 MG CAPSULE PO PRN (16:32)
[2022-04-04] MEDS ORDERED: Haloperidol Lactate 5 MG/ML VIAL IM PRN (16:32)
[2022-04-04] MEDS ORDERED: *HR* LORazepam 2 MG/ML VIAL IM PRN (16:32)
[2022-04-04] MEDS ORDERED: haloperidoL 5 MG TABLET PO PRN (16:32)
[2022-04-04] MEDS ORDERED: *HR* LORazepam 1 MG TABLET PO PRN (16:32)
[2022-04-04] MEDS ORDERED: MOM Conc 10 ML UD.LIQ PO PRN (22:03)
[2022-04-04] MEDS ORDERED: Mag Hydrox/Al Hydrox/Simeth 30 ML UDC PO PRN (22:03)
[2022-04-05] MEDS ORDERED: Hydrocortisone 10 MG TABLET PO SCH ×2 (12:00→16:00)
[2022-04-05] MEDS: BuPROPion XL (24 HR) 150 MG TABLET PO SCH (13:08)
[2022-04-05] MEDS: FLUoxetine 20 MG CAPSULE PO SCH (13:08)
[2022-04-05] MEDS: estradioL 0.5 MG TABLET PO SCH (13:09)
[2022-04-05] MEDS: traZODone 50 MG TABLET PO SCH (21:33)
[2022-04-05] MEDS: hydrOXYzine pamoate 25 MG CAPSULE PO PRN (21:33)
[2022-04-06] MEDS ORDERED: Hydrocortisone 10 MG TABLET PO SCH (08:00)
[2022-04-06] MEDS: BuPROPion XL (24 HR) 150 MG TABLET PO SCH (08:47)
[2022-04-06] MEDS: FLUoxetine 20 MG CAPSULE PO SCH (08:49)
[2022-04-06] MEDS: estradioL 0.5 MG TABLET PO SCH (08:50)
[2022-04-06] MEDS: Hydrocortisone 10 MG TABLET PO SCH ×2 (12:23→17:00)
[2022-04-06] MEDS: PROGESTERONE MICRONIZED 200 MG PO SCH (20:03)
[2022-04-06] MEDS: traZODone 50 MG TABLET PO SCH (20:04)
[2022-04-07] MEDS: BuPROPion XL (24 HR) 150 MG TABLET PO SCH (09:25)
[2022-04-07] MEDS: FLUoxetine 20 MG CAPSULE PO SCH (09:27)
[2022-04-07] MEDS: estradioL 0.5 MG TABLET PO SCH (09:29)
[2022-04-07] MEDS: Hydrocortisone 10 MG TABLET PO SCH ×3 (09:29→16:21)
[2022-04-07] MEDS: hydrOXYzine pamoate 25 MG CAPSULE PO PRN (21:30)
[2022-04-07] MEDS: traZODone 50 MG TABLET PO SCH (21:30)
[2022-04-07] MEDS: PROGESTERONE MICRONIZED 200 MG PO SCH (21:31)
[2022-04-07] MEDS: SOMATROPIN SUBQ SCH (21:50)
[2022-04-08] MEDS: Hydrocortisone 10 MG TABLET PO SCH ×3 (08:40→16:19)
[2022-04-08] MEDS: BuPROPion XL (24 HR) 150 MG TABLET PO SCH (08:46)
[2022-04-08] MEDS: FLUoxetine 20 MG CAPSULE PO SCH (08:47)
[2022-04-08] MEDS: estradioL 0.5 MG TABLET PO SCH (08:47)
[2022-04-08] MEDS: SOMATROPIN SUBQ SCH (21:47)
[2022-04-08] MEDS: hydrOXYzine pamoate 25 MG CAPSULE PO PRN (21:49)
[2022-04-08] MEDS: traZODone 50 MG TABLET PO SCH (21:49)
[2022-04-08] MEDS: PROGESTERONE MICRONIZED 200 MG PO SCH (21:50)
[2022-04-09] MEDS: Hydrocortisone 10 MG TABLET PO SCH ×3 (08:50→17:00)
[2022-04-09] MEDS: estradioL 0.5 MG TABLET PO SCH (08:51)
[2022-04-09] MEDS: FLUoxetine 20 MG CAPSULE PO SCH (08:52)
[2022-04-09] MEDS: BuPROPion XL (24 HR) 150 MG TABLET PO SCH (08:52)
[2022-04-09 11:14] LABS: Calcium 9.4 mg/dL (8.6-10.3)
[2022-04-09] MEDS: hydrOXYzine pamoate 25 MG CAPSULE PO PRN (21:14)
[2022-04-09] MEDS: traZODone 50 MG TABLET PO SCH (21:14)
[2022-04-09] MEDS: PROGESTERONE MICRONIZED 200 MG PO SCH (21:15)
[2022-04-10] MEDS: BuPROPion XL (24 HR) 150 MG TABLET PO SCH (08:59)
[2022-04-10] MEDS: estradioL 0.5 MG TABLET PO SCH (09:01)
[2022-04-10] MEDS: FLUoxetine 20 MG CAPSULE PO SCH (09:02)
[2022-04-10] MEDS: Hydrocortisone 10 MG TABLET PO SCH ×3 (09:03→21:09)
[2022-04-10] MEDS: SOMATROPIN SUBQ SCH (20:52)
[2022-04-10] MEDS: traZODone 50 MG TABLET PO SCH (20:56)
[2022-04-10] MEDS: hydrOXYzine pamoate 25 MG CAPSULE PO PRN (20:59)
[2022-04-10] MEDS: PROGESTERONE MICRONIZED 200 MG PO SCH (20:59)
[2022-04-10] MEDS: Acetaminophen 325 MG TABLET PO PRN (21:11)
[2022-04-11] MEDS: estradioL 0.5 MG TABLET PO SCH (08:38)
[2022-04-11] MEDS: FLUoxetine 20 MG CAPSULE PO SCH (08:38)
[2022-04-11] MEDS: BuPROPion XL (24 HR) 150 MG TABLET PO SCH (08:39)
[2022-04-11] MEDS: Hydrocortisone 10 MG TABLET PO SCH ×3 (09:14→16:00)
[2022-04-11] MEDS: traZODone 50 MG TABLET PO SCH (21:37)
[2022-04-11] MEDS: Acetaminophen 325 MG TABLET PO PRN (21:38)
[2022-04-11] MEDS: hydrOXYzine pamoate 25 MG CAPSULE PO PRN (21:38)
[2022-04-11] MEDS: PROGESTERONE MICRONIZED 200 MG PO SCH (21:45)
[2022-04-12] MEDS: hydroCHLOROthiazide 25 MG TABLET PO SCH (08:50)
[2022-04-12] MEDS: estradioL 0.5 MG TABLET PO SCH (08:50)
[2022-04-12] MEDS: Hydrocortisone 10 MG TABLET PO SCH ×3 (08:51→16:13)
[2022-04-12] MEDS: FLUoxetine 20 MG CAPSULE PO SCH (08:52)
[2022-04-12] MEDS: BuPROPion XL (24 HR) 150 MG TABLET PO SCH (08:52)
[2022-04-12 10:37] LABS: Basophils % 0.3 %; Eosinophils % 0.1 %; Hematocrit 41.6 % (35.3-44.9); Hemoglobin 13.5 g/dL (11.5-15.4); Immature Granulocytes % 0.3 % (0-4); Lymphocytes # 2.3 K/mcL (0.6-4.6); Lymphocytes % 30.8 %; Mean Corpuscular HGB Conc 32.5 g/dL (31.6-35.5); Mean Corpuscular Hemoglobin 29.2 pg (28.0-33.3); Mean Platelet Volume 9.7 fL (9.4-12.4); Monocytes # 0.6 K/mcL (0.0-1.3); Monocytes % 8.4 %; Neutrophils # 4.6 K/mcL (1.6-8.9); Platelet Count 245 K/mcL (140-400); Red Blood Count 4.62 M/mcL (3.82-4.97); Red Cell Distribution Width 12.6 % (11.5-14.5); Segmented Neutrophils % 60.1 %; White Blood Count 7.6 K/mcL (4.3-11.1)
[2022-04-12 10:53] LABS: Bacteria,Urine Moderate per hpf (None-Few); Bilirubin,Urine Negative (Negative); Blood,Urine Negative (Negative); Budding Yeast,Urine Few per hpf (None Seen); Clarity,Urine Turbid (Clear); Color,Urine Light-Yellow (Yellow); Glucose,Urine (UA) Normal (Normal); Ketones,Urine Negative (Negative); Leukocyte Esterase,Urine Moderate (Negative); Mucus,Urine Few per lpf (None-Few); Nitrite,Urine Negative (Negative); PH,Urine 6.5 pH Units (5.0-8.0); Protein,Urine Negative (Neg-Trace); Specific Gravity,Urine 1.011 (1.010-1.025); Squamous Epithelial Cell,Urine Many per hpf (None-Few); Urobilinogen,Urine Normal (Normal)
[2022-04-12 10:58] LABS: Calcium 9.9 mg/dL (8.6-10.3); Potassium 3.5 mEq/L (3.5-5.1)
[2022-04-12] MEDS: Acetaminophen 325 MG TABLET PO PRN ×2 (12:42→21:55)
[2022-04-12] MEDS: Nitrofurantoin (BID) 100 MG CAPSULE PO SCH (16:13)
[2022-04-12] MEDS: traZODone 50 MG TABLET PO SCH (21:29)
[2022-04-12] MEDS: PROGESTERONE MICRONIZED 200 MG PO SCH (21:29)
[2022-04-12] MEDS: SOMATROPIN SUBQ SCH (21:49)
[2022-04-13] MEDS: FLUoxetine 20 MG CAPSULE PO SCH (08:30)
[2022-04-13] MEDS: BuPROPion XL (24 HR) 150 MG TABLET PO SCH (08:30)
[2022-04-13] MEDS: Nitrofurantoin (BID) 100 MG CAPSULE PO SCH ×2 (08:31→16:49)
[2022-04-13] MEDS: hydroCHLOROthiazide 25 MG TABLET PO SCH (08:31)
[2022-04-13] MEDS: Hydrocortisone 10 MG TABLET PO SCH ×3 (08:32→16:48)
[2022-04-13] MEDS: estradioL 0.5 MG TABLET PO SCH (08:32)
[2022-04-13] MEDS: Acetaminophen 325 MG TABLET PO PRN ×2 (11:21→21:27)
[2022-04-13] MEDS: PROGESTERONE MICRONIZED 200 MG PO SCH (20:21)
[2022-04-13] MEDS: traZODone 50 MG TABLET PO SCH (20:23)
[2022-04-14] MEDS: FLUoxetine 20 MG CAPSULE PO SCH (08:29)
[2022-04-14] MEDS: BuPROPion XL (24 HR) 150 MG TABLET PO SCH (08:30)
[2022-04-14] MEDS: Hydrocortisone 10 MG TABLET PO SCH (08:31)
[2022-04-14] MEDS: Nitrofurantoin (BID) 100 MG CAPSULE PO SCH (08:33)
[2022-04-14] MEDS: estradioL 0.5 MG TABLET PO SCH (08:33)
[2022-04-14] MEDS: hydroCHLOROthiazide 25 MG TABLET PO SCH (08:33)
[2022-04-14 09:40] VITALS: BP 120/77; PULSE 78; TEMP 98.7; O2SAT 96
== END 2022-04-14 10:05 | disposition home or self-care (01) | DRG 885 ==
LOC: EMEROOARM 18:10 → 1ANU 04-04 16:53
PROVIDERS: ADMIT Psychiatry & Neurology Psychiatry; ATTEND Psychiatry & Neurology Psychiatry